=== PATIENT | male | born 1930 | race Caucasian/White ===

== ENCOUNTER 2017-01-29 14:49 | Inpatient (IN) | payer OTHER, BC ==
[2017-01-29 15:14] VITALS: BMI 23.0
--- NOTE | 2017-01-29 15:26 | PDOC ---
History of Present Illness <Sudhir Dubois - Last Filed: 01/29/17 17:26> - General History Source: Patient Exam Limitations: Clinical Condition, Language Barrier - History of Present Illness Initial Comments: 01/29/17 15:50 86 yo M with significant PMHx of afib and muscular dystrophy presents with 4 mo. history of progressive SOB. His is main historian. She states that for the past 4 mo he has gotten progressively worse shortness of breath to the point now where he has labored breathing even at rest. She mentions that he has also had productive cough with yellow sputum. Denies CP, WEBB, abd. pain , palpitations, N/V. Timing/Duration: reports: changing over time, getting worse Severity: reports: moderate Possible Cause: Yes: no prior episodes Associated Symptoms: reports: cough <Michael Clarke - Last Filed: 01/29/17 18:17> - General Chief Complaint: Shortness of Breath Stated Complaint: SOB Time Seen by Provider: 01/29/17 15:24 Past History <Suhdir Dubois - Last Filed: 01/29/17 17:26> - Travel Traveled outside of the country in the last 30 days: Yes Close contact w/someone who was outside of country & ill: Yes - Past Medical History Cardiac Disorders: Yes (afib) Other medical history: MS - Psycho/Social/Smoking Cessation Hx Anxiety: No Suicidal Ideation: No Smoking History: Former smoker Have you smoked in the past 12 months: Yes Information on smoking cessation initiated: No Hx Alcohol Use: No Drug/Substance Use Hx: No Substance Use Type: None <Michael Clarke - Last Filed: 01/29/17 18:17> - Past Medical History Allergies/Adverse Reactions: Allergies Allergy/AdvReac Type Severity Reaction Status Date / Time No Known Allergies Allergy Verified 01/29/17 14:56 Home Medications: Ambulatory Orders Aspirin [ASA -] 81 mg PO DAILY 01/29/17 Atenolol [Tenormin -] 12.5 mg PO ASDIR 01/29/17 Digoxin [Lanoxin -] 0.125 mg PO DAILY 01/29/17 Review of Systems - Review of Systems Able to Perform ROS?: Yes Is the patient limited Chilean proficient: Yes Constitutional: Yes: Weakness, Unintentional Wgt. Loss Respiratory: Yes: Cough, Orthopnea, SOB at Rest, Productive cough Cardiac (ROS): Yes: Edema, Irregular Heart Rate All Other Systems: Reviewed and Negative <Michael Clarke - Last Filed: 01/29/17 18:17> *Physical Exam - Vital Signs Last Vital Signs Temp Pulse Resp BP Pulse Ox 97.9 F 84 22 132/95 96 01/29/17 15:06 01/29/17 15:06 01/29/17 15:06 01/29/17 15:06 01/29/17 17:00 <Sudhir Dubois - Last Filed: 01/29/17 17:26> - Vital Signs Last Vital Signs Temp Pulse Resp BP Pulse Ox 97.9 F 84 22 132/95 95 01/29/17 15:06 01/29/17 15:06 01/29/17 15:06 01/29/17 15:06 01/29/17 15:06 - Physical Exam General Appearance: Yes: Mild Distress HEENT: positive: EOMI, BRITTANY Neck: positive: Supple Respiratory/Chest: positive: Decreased Breath Sounds, Crackles, Rhonchi (left side> right) Cardiovascular: positive: S1, S2, Edema, Irregularly Irregular. negative: JVD, Murmur Vascular Pulses: Dorsalis-Pedis (R): 1+, Doralis-Pedis (L): 1+ Gastrointestinal/Abdominal: positive: Normal Bowel Sounds, Flat, Soft Musculoskeletal: positive: Normal Inspection. negative: CVA Tenderness Extremity: positive: Pedal Edema, Swelling. negative: Calf Tenderness Integumentary: positive: Normal Color, Dry, Warm. negative: Cyanotic, Erythema , Jaundice Neurologic: positive: Fully Oriented, Alert <Michael Clarke - Last Filed: 01/29/17 18:17> ED Treatment Course - LABORATORY CBC & Chemistry Diagram: 01/29/17 16:10 01/29/17 16:10 - ADDITIONAL ORDERS Additional order review: Laboratory Results 01/29/17 16:10 Sodium 139 Potassium 4.9 Chloride 100 Carbon Dioxide 27 Anion Gap 12 BUN 12 Creatinine < 0.2 L Creat Clearance w eGFR > 60 Random Glucose 80 Calcium 8.4 L Total Bilirubin 0.5 AST 20 ALT 16 Alkaline Phosphatase 46 B-Natriuretic Peptide 1333.06 H Total Protein 7.4 Albumin 3.1 L 01/29/17 16:10 RBC 4.75 MCV 91.1 MCHC 32.4 RDW 17.4 H MPV 7.6 Neutrophils % 78.3 Lymphocytes % 12.4 Monocytes % 8.5 Eosinophils % 0.5 Basophils % 0.3 - Medications Given in the ED: ED Medications Discontinued Medications Generic Name Dose Route Start Last Admin Trade Name Daren PRN Reason Stop Dose Admin Furosemide 40 mg 01/29/17 16:13 01/29/17 16:35 Lasix Injection - IVPUSH 01/29/17 16:14 40 mg ONCE ONE Administration <Sudhir Dubois - Last Filed: 01/29/17 17:26> - LABORATORY CBC & Chemistry Diagram: 01/29/17 16:10 01/29/17 16:10 <Michael Clarke - Last Filed: 01/29/17 18:17> Medical Decision Making - Medical Decision Making 01/29/17 16:46 A:86 yo M with significant PMHx of afib and muscular dystrophy presents with 4 mo. history of progressive SOB. Suspicious for CHF exacerbation. Will r/o PNA. Found to be hypoxic SpO2 88% on RA and 93% on 4L P: * CBC,CMP,UA, BNP , and Troponin I * CXR, EKG, and BiPap 01/29/17 16:49 * <Michael Clarke - Last Filed: 01/29/17 18:17> *DC/Admit/Observation/Transfer - Discharge Dispostion Admit: Yes <Sudhir Dubois - Last Filed: 01/29/17 17:26> <Michael Clarke - Last Filed: 01/29/17 18:17> Diagnosis at time of Disposition: Shortness of breath
[2017-01-29] MEDS ORDERED: FUROSEMIDE 40 MG/4 ML INJECTABLE VIAL IVPUSH ONE (16:13)
--- NOTE | 2017-01-29 16:14 | PDOC ---
Attending Attestation - Resident Resident Name: Michael Clarke - ED Attending Attestation I have performed the following: I have examined & evaluated the patient, The case was reviewed & discussed with the resident, I agree w/resident's findings & plan, Exceptions are as noted - HPI HPI: 01/29/17 16:12 86-year-old male with history of muscular dystrophy, atrial fibrillation and CHF presents with several weeks of worsening shortness of breath. - Physicial Exam PE: 01/29/17 16:12 O2 sat 93% on 4 L crackles and edema on exam - Medical Decision Making 01/29/17 16:12 Patient seen and evaluated with the resident. I agree with the overall evaluation, assessment, and management with the following summary of visit: 86-year-old male with volume overload, question primary cardiac. Labs, urinalysis EKG, chest x-ray bipap for pressure support Diuresis Admission 01/29/17 17:23 Improved on bipap, feels well. CBC wnl, no leukocytosis. Chem wnl, BNP 1300, trop pending, Cr normal. CXR with atelectasis v. infiltrate, but presentation not consistent with pna. Accepted for inpatient tele by Dr. Gordillo, admitting for Dr. Bennett. Requests consult with Dr. Casillas, which was ordered.
[2017-01-29] MEDS ORDERED: FUROSEMIDE 40 MG/4 ML INJECTABLE VIAL ONE (16:35)
[2017-01-29 16:58] LABS: BASOPHIL 0.3 % (0-2.0); EOSINOPHIL 0.5 % (0-4.5); MCH 29.5 pg (25.7-33.7); MCHC 32.4 g/dl (32.0-35.9); MEAN CELL VOLUME 91.1 fl (80-96); MEAN PLT VOLUME 7.6 fl (7.5-11.1); NEUTROPHILS 78.3 % (42.8-82.8); PLATELET COUNT 305 K/MM3 (134-434); RDW 17.4 % (11.9-15.9); WHITE BLOOD COUNT 8.4 K/mm3 (4.0-10.0)
[2017-01-29 17:04] LABS: ALBUMIN 3.1 g/dl (3.4-5.0); ANION GAP 12 (8-16); BILIRUBIN,TOTAL 0.5 mg/dL (0.2-1.0); CALCIUM 8.4 mg/dL (8.5-10.1); CO2 27 mmol/L (21-32); COCKROFT - GAULT 212; CREATININE < 0.2 mg/dL (0.7-1.3); GLUCOSE,RANDOM 80 mg/dL (74-106); SGPT/ALT 16 U/L (12-78); TOT PROT 7.4 g/dl (6.4-8.2)
[2017-01-29 17:06] LABS: ALK PHOS 46 U/L (45-117)
[2017-01-29 17:09] LABS: SGOT/AST 20 U/L (15-37)
[2017-01-29 17:29] LABS: TROPONIN I < 0.02 ng/ml (0.00-0.05)
[2017-01-29] MEDS ORDERED: LEVOFLOXACIN 500 MG IVPB 100 ML IVPB ONE (20:40)
--- NOTE | 2017-01-29 20:50 | HP ---
Admitting History and Physical - Primary Care Physician PCP: Gio Gordillo - Admission Chief Complaint: SOB History of Present Illness: Pt with progressive body weakness over last 4 months, started to cough for 1-2 months, over the last couple of days got worse. Pt had a Chest CT scan at the end of December 2016, c/w bilat. bronchietasis, left more than right lung infiltrate, moderate pericardial effusion. History Source: Family Member () - Past Medical History Cardiovascular: Yes: AFIB Musculoskeletal: Yes: Other (Muscular Dystrophy) - Smoking History Smoking history: Former smoker Have you smoked in the past 12 months: No If you are a former smoker, when did you quit?: - Alcohol/Substance Use Hx Alcohol Use: No - Social History Usual Living Arrangement: Yes: With Spouse Home Medications - Allergies Allergies/Adverse Reactions: Allergies Allergy/AdvReac Type Severity Reaction Status Date / Time No Known Allergies Allergy Verified 01/29/17 14:56 - Home Medications Home Medications: Ambulatory Orders Aspirin [ASA -] 81 mg PO DAILY 01/29/17 Atenolol [Tenormin -] 12.5 mg PO ASDIR 01/29/17 Digoxin [Lanoxin -] 0.125 mg PO DAILY 01/29/17 Review of Systems - Review of Systems Constitutional: denies: Chills, Fever, Night Sweats, Unintentional Wgt. Loss Eyes: denies: Double Vision, Recent Change in Vision HENT: reports: Difficult Swallowing. denies: Ear Discharge, Ear Pain, Epistaxis , Nasal Congestion, Throat Pain Neck: denies: Decreased ROM, Pain on Movement Cardiovascular: denies: Chest Pain, Edema, Palpitations Respiratory: reports: Cough, SOB. denies: Hemoptysis, Wheezing Gastrointestinal: denies: Abdominal Pain, Constipation, Diarrhea, Nausea, Vomiting Genitourinary: denies: Burning, Discharge, Dysuria, Flank Pain Musculoskeletal: denies: Back Pain, Joint Swelling Integumentary: denies: Blister, Change in Color, Rash Neurological: denies: Change in LOC, Change in Speech Endocrine: reports: Excessive Sweating. denies: Intolerance to Cold Hematology/Lymphatic: denies: Easily Bruised, Excessive Bleeding Psychiatric: denies: Anxiety, Depression Physical Examination Vital Signs: Vital Signs Temperature 97.9 F 01/29/17 15:06 Pulse Rate 73 01/29/17 18:31 Respiratory Rate 19 01/29/17 18:31 Blood Pressure 136/98 01/29/17 18:31 O2 Sat by Pulse Oximetry (%) 98 01/29/17 18:31 Constitutional: No: No Distress, Calm Eyes: Yes: Conjunctiva Clear, EOM Intact, PERRL HENT: Yes: Normocephalic. No: Epistaxis, Rhinnorhea Neck: Yes: Trachea Midline. No: Lymphadenopathy Cardiovascular: Yes: Regular Rate and Rhythm, S1, S2 Respiratory: Yes: Rhonchi. No: CTA Bilaterally, Wheezes Gastrointestinal: Yes: Normal Bowel Sounds, Soft. No: Palpable Mass, Tenderness ...Rectal Exam: Yes: Deferred Musculoskeletal: No: Back Pain, Joint Stiffness, Joint Swelling Edema: Yes Edema: LLE: Trace, RLE: Trace Integumentary: No: Bruising, Rash Neurological: Yes: Alert, Oriented Labs: reviewed Imaging - Results Chest X-ray: Report Reviewed, Image Reviewed Problem List - Problems (1) Shortness of breath Code(s): R06.02 - SHORTNESS OF BREATH (2) CHF exacerbation Code(s): I50.9 - HEART FAILURE, UNSPECIFIED (3) Pneumonia Code(s): J18.9 - PNEUMONIA, UNSPECIFIED ORGANISM (4) Muscular dystrophy Code(s): G71.0 - MUSCULAR DYSTROPHY Assessment/Plan SOB improved after IV Lasix and on BIPAP. To SANTI by Serial CE Cardio conuslt Pulmonary cosult Start IV Levaquin ECHO in AM Admit to monitor bed DVT prophylaxis AM labs
[2017-01-29 21:34] LABS: TROPONIN I < 0.02 ng/ml (0.00-0.05)
[2017-01-30] MEDS: METOPROLOL TARTRATE 25 MG TABLET (FP) PO SCH ×3 (06:39→21:36)
[2017-01-30 07:45] LABS: MCH 29.7 pg (25.7-33.7); MCHC 32.8 g/dl (32.0-35.9); MEAN CELL VOLUME 90.7 fl (80-96); MEAN PLT VOLUME 7.4 fl (7.5-11.1); PLATELET COUNT 281 K/MM3 (134-434); WHITE BLOOD COUNT 7.1 K/mm3 (4.0-10.0)
[2017-01-30 08:37] LABS: ALBUMIN 2.8 g/dl (3.4-5.0); ALK PHOS 47 U/L (45-117); ANION GAP 10 (8-16); BILIRUBIN,TOTAL 0.7 mg/dL (0.2-1.0); CALCIUM 8.2 mg/dL (8.5-10.1); CO2 30 mmol/L (21-32); COCKROFT - GAULT 212; CREATININE < 0.2 mg/dL (0.7-1.3); GLUCOSE,RANDOM 74 mg/dL (74-106); SGOT/AST 14 U/L (15-37); SGPT/ALT 14 U/L (12-78); THYROID STIMULATING HORMONE 2.75 uIU/ml (0.358-3.74); TOT PROT 6.7 g/dl (6.4-8.2)
[2017-01-30] MEDS ORDERED: PT OWN MED DRAWER 7, Y5N ONE (09:13)
[2017-01-30 09:26] LABS: CHOLESTEROL 109 mg/dL (50-200)
[2017-01-30 09:29] LABS: FREE T4 1.22 ng/dl (0.76-1.16); LDL CHOLESTEROL (ONLY SJRH) 68 mg/dL (5-100)
--- NOTE | 2017-01-30 09:33 | PN ---
[id number] - Current Medication List Current Medications: Active Medications Aspirin (Asa -) 81 mg PO DAILY [facility] Digoxin (Lanoxin -) 0.125 mg PO DAILY [facility] Metoprolol Tartrate (Lopressor -) 12.5 mg PO BID [facility] Last Admin: 01/30/17 06:39 Dose: 12.5 mg - Objective Vital Signs: Vital Signs Temperature 96.8 F L 01/30/17 06:40 Pulse Rate 94 H 01/30/17 06:40 Respiratory Rate 20 01/30/17 06:40 Blood Pressure 136/76 01/30/17 06:40 O2 Sat by Pulse Oximetry (%) 97 01/29/17 21:00 Constitutional: Yes: No Distress, Calm Cardiovascular: Yes: Regular Rate and Rhythm, S1, S2 Respiratory: Yes: Regular, Rales, Rhonchi (on Right side, at the base) Gastrointestinal: Yes: Normal Bowel Sounds, Soft. No: Palpable Mass, Tenderness Edema: No Labs: CBC, BMP 01/30/17 05:35 01/30/17 05:35 Problem List - Problems (1) Shortness of breath Code(s): R06.02 - SHORTNESS OF BREATH (2) CHF exacerbation Code(s): I50.9 - HEART FAILURE, UNSPECIFIED (3) Pneumonia Code(s): J18.9 - PNEUMONIA, UNSPECIFIED ORGANISM (4) Muscular dystrophy Code(s): G71.0 - MUSCULAR DYSTROPHY Assessment/Plan SOB improved after IV Lasix and on BIPAP. Cardio consult. Pulmonary consult. Started IV Levaquin Admitted to monitor bed DVT prophylaxis. Possible dysphagia- consider swallowing eval. AM labs
[2017-01-30] MEDS: ASPIRIN 81 MG CHEWABLE TABLETS PO SCH (10:15)
[2017-01-30] MEDS: DIGOXIN 0.125 MG TABLET (FP) PO SCH (10:15)
--- NOTE | 2017-01-30 10:19 | CON.CARD ---
Cardiology Consult (text) - Consultation Consultation Note: cc: sob, cough, yellow sputum hpi: 86 m hx afib, muscular dystrophy, here with sob, cough, yellow sputum. Pt reports these sxs have been intermittently present for several months. No cp , palps, loc, pnd, orthopnea. Mild le edema. No hx chf or cad. Does not follow with cardiology. In ER put on bipap initially and started on iv abx and iv lasix. Today pt feeling better. pmh: per hpi psh: nc social: ex tob fam: no premature cad ros: per hpi; no fever, nvd, tesfaye, vision changes, abd pain, gib, hematuria, dysuria meds: Home Medications Medication Instructions Recorded Aspirin [ASA -] 81 mg PO DAILY 01/29/17 Atenolol [Tenormin -] 12.5 mg PO ASDIR 01/29/17 Digoxin [Lanoxin -] 0.125 mg PO DAILY 01/29/17 pe: Vital Signs Period Temp Pulse Resp BP Sys/Chilel Pulse Ox Last 24 Hr 96.8 F-98 F 73-94 19-22 112-138/69-98 92-98 nad no jvd irreg s1s2 no mrg cta bl nl eff aaox3 no le e/c/c abd nt nd pos bs no jaundice diaphoresis pos dp pt no carotid bruits Laboratory Last Values WBC 7.1 K/mm3 (4.0-10.0) 01/30/17 05:35 RBC 4.62 M/mm3 (4.00-5.60) 01/30/17 05:35 Hgb 13.7 GM/dL (11.7-16.9) 01/30/17 05:35 Hct 41.9 % (35.4-49) 01/30/17 05:35 MCV 90.7 fl (80-96) 01/30/17 05:35 MCHC 32.8 g/dl (32.0-35.9) 01/30/17 05:35 RDW 17.0 % (11.9-15.9) H 01/30/17 05:35 Plt Count 281 K/MM3 (134-434) 01/30/17 05:35 MPV 7.4 fl (7.5-11.1) L 01/30/17 05:35 Neutrophils % 78.3 % (42.8-82.8) 01/29/17 16:10 Lymphocytes % 12.4 % (8-40) 01/29/17 16:10 Monocytes % 8.5 % (3.8-10.2) 01/29/17 16:10 Eosinophils % 0.5 % (0-4.5) 01/29/17 16:10 Basophils % 0.3 % (0-2.0) 01/29/17 16:10 Sodium 139 mmol/L (136-145) 01/30/17 05:35 Potassium 3.6 mmol/L (3.5-5.1) D 01/30/17 05:35 Chloride 99 mmol/L (98-107) 01/30/17 05:35 Carbon Dioxide 30 mmol/L (21-32) 01/30/17 05:35 Anion Gap 10 (8-16) 01/30/17 05:35 BUN 11 mg/dL (7-18) 01/30/17 05:35 Creatinine < 0.2 mg/dL (0.7-1.3) L 01/30/17 05:35 Creat Clearance w eGFR > 60 (>60) 01/30/17 05:35 Random Glucose 74 mg/dL (74-106) 01/30/17 05:35 Calcium 8.2 mg/dL (8.5-10.1) L 01/30/17 05:35 Total Bilirubin 0.7 mg/dL (0.2-1.0) D 01/30/17 05:35 AST 14 U/L (15-37) L D 01/30/17 05:35 ALT 14 U/L (12-78) 01/30/17 05:35 Alkaline Phosphatase 47 U/L (45-117) 01/30/17 05:35 Creatine Kinase 58 IU/L (39-308) 01/29/17 20:45 Troponin I < 0.02 ng/ml (0.00-0.05) 01/29/17 20:45 B-Natriuretic Peptide 1333.06 pg/ml (5-450) H 01/29/17 16:10 Total Protein 6.7 g/dl (6.4-8.2) 01/30/17 05:35 Albumin 2.8 g/dl (3.4-5.0) L 01/30/17 05:35 Triglycerides Cancelled 01/30/17 08:51 Cholesterol Cancelled 01/30/17 08:51 Total LDL Cholesterol Cancelled 01/30/17 08:51 HDL Cholesterol Cancelled 01/30/17 08:51 TSH 2.75 uIU/ml (0.358-3.74) 01/30/17 05:35 Free T4 Cancelled 01/30/17 08:51 tele: afib, rate controlled ecg 01/29/17: afib, vr 80, nl qtc, non spec tw changes, no st changes cxr: rll infiltrate a/p: 86 m hx afib, muscular dystrophy, here with sob, cough, yellow sputum. sob, pna, acute diastolic chf exacerbation: -possible aspiration pna, cont abx per pmd -possible dchf as well as bnp a little high and le edema resolved after iv lasix -no signs acs, ce's neg x2 -will start po lasix 20 qd for maintenance -check echo afib: -rate controlled, cont bb and dig (check level) -not on ac at home, cont asa, defer to his outpt MD -cont tele pericardial eff: -per pmd pt had ct chest last month that reported moderate pericardial eff -no signs of tamponade here -will check echo
--- NOTE | 2017-01-30 12:37 | CONSULT ---
Admitting History and Physical - Primary Care Physician PCP: Gio Gordillo - Admission History of Present Illness: Per EMR: "Chief Complaint: SOB History of Present Illness: Pt with progressive body weakness over last 4 months, started to cough for 1-2 months, over the last couple of days got worse. Pt had a Chest CT scan at the end of December 2016, c/w bilat. bronchietasis, left more than right lung infiltrate, moderate pericardial effusion." Family reports increased speech and swallowing deficits over last 6 months with increased phlegm 0production and weight loss. He does best with mashed/pureed foods at home. History Source: Patient, Family Member Limitations to Obtaining History: Clinical Condition - Past Medical History Cardiovascular: Yes: AFIB Musculoskeletal: Yes: Other (Muscular Dystrophy) - Smoking History Smoking history: Former smoker Have you smoked in the past 12 months: No If you are a former smoker, when did you quit?: - Alcohol/Substance Use Hx Alcohol Use: No History - Admission Reason For Visit: SHORTNESS OF BREATH - Diagnostics X-ray: Report Reviewed - General Mental Status: Alert and Oriented, Awake and Alert, Able to Follow Commands Attention: Intact Ability to Follow Directions: Good Head/Neck Control: Fair - Hearing Hearing: Functional Speech Evaluation - Communication Primary Language: SWAZI Secondary Language: DJIBOUTIAN (fluent) Communication: Yes: Dysarthria, Language Barrier Oral Expression Ability: Yes: Moderate Impairment - Speech Production Able to Make Needs Known: Yes: Moderately Impaired Intelligibility: Yes: Moderately Impaired - Speech Characteristics Voice Loudness: Mildly Soft/Quiet Voice Pitch: Yes: Normal Voice Phonatory-based Quality: Yes: Dysphonia, Vocal Wetness (intermittent) Speech Pattern: Impaired Speech Clarity: < 75% Nasal Resonance: Hypernasal (intermittent) Articulation: Yes: Imprecise Voice, Other Observations: Yes: Progressively Weak Voice, Disordered Intonation , Inadequate Breath Support - Language/Auditory Comprehension Follows: Yes: 2 Stage Simple Commands - Language/Verbal Expression Able to Respond to Simple Queries: Yes: Mildly Impaired Able to Communicate Wants and Needs: Yes: Mildly Impaired Functional Communication Status: Yes: Mildly Impaired - Memory/Perception intermediate manager Memory: Yes: WNL Short Term Memory: Yes: WNL - Swallow Evaluation/Bedside Assessment Current Nutritional Intake: Regular, Thin Liquids Dentition: Yes: Adequate Facial Symmetry at Rest: Symmetrical Facial Symmetry on Retraction: Symmetrical (unable bilaterally) Jaw Position: Open at Rest Against Resistance Opening: Weak Against Resistance Closing: Weak Pucker Lips: Weak Smile: Weak Lingual Movement: Symmetric Lingual Speed of Movement: Reduced Lingual Movement Strgth Against Opposition: Reduced Laryngeal Elevation: Impaired Laryngeal Movement: Able to Palpate, Reduced Excursion, Labored,delay initiation , Reduced Velocity Rate of Intake: Slow/Holding Bolus Size: Small Chewing: Impaired (extended. not efficient) Oral Prep Time: Increased A-P Transit: Impaired Pocketing: Present Bilaterally Timing of Swallow: Delayed Coughing/Throat Clear: Yes Change in Voice: Yes Recommendations - Speech Evaluation, Impression/Plan Impression: Oral/pharyngeal dysphagia - Dysphagia Impressions/Plan Swallowing Skills: Impaired Dysphagia Impressions: Ongoing Evaluation, Suspect Aspiration *Silent aspiration: cannot be R/O at bedside Recommendations: Modified Barium Swallow - Recommendations Medication Administration: Crushed with applesauce
--- NOTE | 2017-01-30 12:43 | CON.PULM ---
Consult Consult Specialty:: PULMONARY Referred by:: Dr. Gordillo Reason for Consultation:: shortness of breath - History of Present Illness Chief Complaint: shortness of breath History of Present Illness: 86yo male with h/o muscular dystrophy, atrial fibrillation who was admitted with worsening shortness of breath since October. He denies any chest pain or palpitations. +cough productive of whatever he last ate. No fevers, chills or sweats. He has been wheelchair/bedbound, does not ambulate. He reports leg swelling but only sleeps on 1 pillow. Noted to be in respiratory distress in the ER, placed on BiPAP, given lasix and antibiotics with improvement in symptoms. 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 - History Source History Provided By: Patient, Family Member Limitations to Obtaining History: Clinical Condition - Past Medical History Cardio/Vascular: Yes: AFIB Musculoskeletal: Yes: Other (Muscular Dystrophy) - Alcohol/Substance Use Hx Alcohol Use: No - Smoking History Smoking history: Former smoker Have you smoked in the past 12 months: No If you are a former smoker, when did you quit?: Home Medications - Allergies Allergies/Adverse Reactions: Allergies Allergy/AdvReac Type Severity Reaction Status Date / Time No Known Allergies Allergy Verified 01/29/17 14:56 - Home Medications Home Medications: Ambulatory Orders Aspirin [ASA -] 81 mg PO DAILY 01/29/17 Atenolol [Tenormin -] 12.5 mg PO ASDIR 01/29/17 Digoxin [Lanoxin -] 0.125 mg PO DAILY 01/29/17 Family Disease History - Family Disease History Other Family History: non-contributory Review of Systems - Review of Systems Constitutional: reports: Weakness. denies: Chills, Fever Eyes: denies: Recent Change in Vision HENT: denies: Nasal Congestion, Throat Pain Neck: denies: Stiffness, Tenderness Cardiovascular: reports: Edema, Shortness of Breath. denies: Chest Pain Respiratory: reports: Cough, SOB, Wheezing. denies: Hemoptysis Gastrointestinal: denies: Abdominal Pain, Nausea, Vomiting Genitourinary: denies: Dysuria, Hematuria Neurological: denies: Dizziness, Headache Physical Exam Vital Sings: Vital Signs Temperature 98.2 F 01/30/17 09:00 Pulse Rate 91 H 01/30/17 10:15 Respiratory Rate 24 01/30/17 09:00 Blood Pressure 130/79 01/30/17 09:00 O2 Sat by Pulse Oximetry (%) 93 L 01/30/17 10:10 Constitutional: Yes: Calm Eyes: Yes: Conjunctiva Clear, EOM Intact HENT: Yes: Atraumatic, Normocephalic Neck: Yes: Supple, Trachea Midline Cardiovascular: Yes: Pulse Irregular Respiratory: Yes: Regular, Diminished (decreased breath sounds at the bases) ...Clubbing: No Gastrointestinal: Yes: Normal Bowel Sounds, Soft. No: Tenderness Edema: No Neurological: Yes: Alert, Oriented Labs: CBC, BMP 01/30/17 05:35 01/30/17 05:35 Imaging - Results Chest X-ray: Report Reviewed, Image Reviewed (bibasilar infiltrates vs atelectasis) Problem List - Problems (1) CHF exacerbation Code(s): I50.9 - HEART FAILURE, UNSPECIFIED (2) Muscular dystrophy Code(s): G71.0 - MUSCULAR DYSTROPHY (3) Atrial fibrillation Code(s): I48.91 - UNSPECIFIED ATRIAL FIBRILLATION (4) Atelectasis Code(s): J98.11 - ATELECTASIS Assessment/Plan Acute on Chronic LV Diastolic Heart Failure Atrial Fibrillation Pulmonary HTN Moderate Mitral Regurgitation Atelectasis r/o Pneumonia r/o Aspiration Muscular Dystrophy - continue lasix - monitor urine output, creatinine - daily weights, I/Os - on empiric antibiotics - suspect CXR findings more consistent with combination of CHF and atelectasis - can d/c antibiotics if remains afebrile with normal WBC - incentive spirometry - repeat CXR in AM - check vital capacity, NIF and peak flow for baseline function - O2, BiPAP as needed - rate controlled - anticoagulation per cardiology Thank you for this consult [place] MD
--- NOTE | 2017-01-30 13:28 | EKG ---
Test Reason : Blood Pressure : / mmHG Vent. Rate : 080 BPM Atrial Rate : 113 BPM P-R Int : 000 ms QRS Dur : 072 ms QT Int : 332 ms P-R-T Axes : 000 -28 018 degrees QTc Int : 382 ms ATRIAL FIBRILLATION LOW VOLTAGE QRS CANNOT RULE OUT ANTERIOR INFARCT , AGE UNDETERMINED ABNORMAL ECG WHEN COMPARED WITH ECG OF 07-JUN-2011 05:48, QRS VOLTAGE HAS DECREASED QT HAS SHORTENED Confirmed by FRAN MAYS, CLINT ([id number]) on 01/30/2017 1:28:28 PM Referred By: Confirmed By:CLINT PETERS MD
[2017-01-31] MEDS: DIGOXIN 0.125 MG TABLET (FP) PO SCH (09:17)
[2017-01-31] MEDS: ASPIRIN 81 MG CHEWABLE TABLETS PO SCH (09:17)
[2017-01-31] MEDS: METOPROLOL TARTRATE 25 MG TABLET (FP) PO SCH ×2 (09:18→22:07)
[2017-01-31] MEDS: FUROSEMIDE 20 MG TABLET (FP) PO SCH (09:18)
--- NOTE | 2017-01-31 10:39 | PN ---
Progress Note, Physician History of Present Illness: PULMONARY ALERT,STLL C/O SOB - Current Medication List Current Medications: Active Medications Aspirin (Asa -) 81 mg PO DAILY [facility] Last Admin: 01/31/17 09:17 Dose: 81 mg Digoxin (Lanoxin -) 0.125 mg PO DAILY [facility] Last Admin: 01/31/17 09:17 Dose: 0.125 mg Furosemide (Lasix -) 20 mg PO DAILY [facility] Last Admin: 01/31/17 09:18 Dose: 20 mg Metoprolol Tartrate (Lopressor -) 12.5 mg PO BID [facility] Last Admin: 01/31/17 09:18 Dose: 12.5 mg - Objective Vital Signs: Vital Signs Temperature 96.8 F L 01/31/17 05:34 Pulse Rate 90 01/31/17 09:17 Respiratory Rate 21 01/31/17 05:34 Blood Pressure 140/87 01/31/17 05:34 O2 Sat by Pulse Oximetry (%) 96 01/30/17 22:24 Constitutional: Yes: Calm, Thin Eyes: Yes: WNL HENT: Yes: WNL Neck: Yes: WNL Cardiovascular: Yes: Pulse Irregular, S1, S2 Respiratory: Yes: Rales (BIBASILAR CRACKLES) Gastrointestinal: Yes: Normal Bowel Sounds, Soft Extremities: Yes: WNL Edema: No Labs: CBC, BMP - ....Imaging Chest X-ray: Report Reviewed, Image Reviewed Assessment/Plan Problem List - Problems (1) CHF exacerbation Code(s): I50.9 - HEART FAILURE, UNSPECIFIED (2) Muscular dystrophy Code(s): G71.0 - MUSCULAR DYSTROPHY (3) Atrial fibrillation Code(s): I48.91 - UNSPECIFIED ATRIAL FIBRILLATION (4) Atelectasis Code(s): J98.11 - ATELECTASIS Assessment/Plan 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
--- NOTE | 2017-01-31 11:31 | PN ---
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 GT being considered. Pt does best with single sips of thin liquid. Consider Ensure clear for now. Seated fully upright,one sip at a time, allow pt to swallow several times to clear residue through UES, feed VERY slowly. Monitor tolerance.
--- NOTE | 2017-01-31 11:44 | PN ---
Progress Note (short form) - Note Progress Note: s: no cp sob palps dizzy; not eating anything due to swallowing difficulties, also with coughing o: Vital Signs Period Temp Pulse Resp BP Sys/Chilel Pulse Ox Last 24 Hr 96.8 F-98.4 F 72-98 20-22 101-140/62-87 92-98 nad no jvd irreg s1s2 no mrg cta bl nl eff aaox3 no le e/c/c abd nt nd pos bs no jaundice diaphoresis Current Medications Generic Name Dose Route Start Last Admin Trade Name Daren PRN Reason Stop Dose Admin Aspirin 81 mg 01/30/17 10:00 01/31/17 09:17 Asa - PO 81 mg DAILY FROILAN Administration Digoxin 0.125 mg 01/30/17 10:00 01/31/17 09:17 Lanoxin - PO 0.125 mg DAILY FROILAN Administration Furosemide 20 mg 01/31/17 10:00 01/31/17 09:18 Lasix - PO 20 mg DAILY FROILAN Administration Metoprolol Tartrate 12.5 mg 01/30/17 06:00 01/31/17 09:18 Lopressor - PO 12.5 mg BID FROILAN Administration 01/30/17 05:35 01/30/17 05:35 tele: afib, rate controlled ecg 01/29/17: afib, vr 80, nl qtc, non spec tw changes, no st changes cxr: rll infiltrate echo 01/2017: nl lv/rv, sev brad, mod mr, mod-sev tr, rvsp 30-40, small-mod pericardial eff, no tamponade a/p: 86 m hx afib, muscular dystrophy, here with sob, cough, yellow sputum. sob, pna, acute diastolic chf exacerbation: -possible aspiration pna, ct chest pending -will likely need peg-->no cardiac contraindications -possible dchf as well as bnp a little high and le edema resolved after iv lasix -no signs acs, ce's neg x2 -cont po lasix 20 qd for maintenance -echo with nl lvef afib: -rate controlled, cont bb and dig (level ok) -not on ac at home, cont asa, defer to his outpt pericardial eff: -per charts pt had ct chest 12/2016 that reported moderate pericardial eff -echo here shows mild-mod pericardial eff -no signs of tamponade here -monitor for now
--- NOTE | 2017-01-31 14:52 | PN ---
Progress Note, Physician History of Present Illness: Pt w/o SOB, CP, palp., abd pain Pt. with cough and sputum, difficult to bring it up. - Current Medication List Current Medications: Active Medications Aspirin (Asa -) 81 mg PO DAILY [facility] Last Admin: 01/31/17 09:17 Dose: 81 mg Digoxin (Lanoxin -) 0.125 mg PO DAILY [facility] Last Admin: 01/31/17 09:17 Dose: 0.125 mg Furosemide (Lasix -) 20 mg PO DAILY [facility] Last Admin: 01/31/17 09:18 Dose: 20 mg Metoprolol Tartrate (Lopressor -) 12.5 mg PO BID [facility] Last Admin: 01/31/17 09:18 Dose: 12.5 mg - Objective Vital Signs: Vital Signs Temperature 98 F 01/31/17 09:00 Pulse Rate 90 01/31/17 09:17 Respiratory Rate 20 01/31/17 09:00 Blood Pressure 124/64 01/31/17 09:00 O2 Sat by Pulse Oximetry (%) 94 L 01/31/17 09:00 Constitutional: Yes: No Distress, Calm Cardiovascular: Yes: S1, S2 Respiratory: Yes: Regular, Rhonchi (at bases, R > L) Gastrointestinal: Yes: Normal Bowel Sounds, Soft. No: Tenderness Edema: No Neurological: Yes: Oriented Labs: CBC, BMP 01/30/17 05:35 01/30/17 05:35 - ....Imaging Other: Other (MBS was reviewed ( with Danae White)) Problem List - Problems (1) Shortness of breath Code(s): R06.02 - SHORTNESS OF BREATH (2) CHF exacerbation Code(s): I50.9 - HEART FAILURE, UNSPECIFIED (3) Pneumonia Code(s): J18.9 - PNEUMONIA, UNSPECIFIED ORGANISM (4) Muscular dystrophy Code(s): G71.0 - MUSCULAR DYSTROPHY (5) Dysphagia Assessment/Plan: Case was d/w Danae White- pt cannot swallow except liqiuds (seems to be OK). She recommends PEG tube placement for nutrition and therapeutic- medication administration; pt. can continue to drink. Recommendations were reviewed with pt. and pt.'s (PEG tube was recommended a while ago but pt. didn't decided). Now he and noticed decreased in PO intake and want to go ahead with PEGT placement this admission. To call GI for evaluation. Case was d/w Cardio and Pulmonary- OK for OR Code(s): R13.10 - DYSPHAGIA, UNSPECIFIED
--- NOTE | 2017-01-31 18:16 | CON.GI ---
Consult Consult Specialty:: Gastroenterology Referred by:: Dr Gordillo Reason for Consultation:: Dysphagia - History of Present Illness Chief Complaint: Difficulty with speech, chewing and swallowing as result of muscular dystrophy leading to weakness History of Present Illness: 86M has progressive weakness since 10/22. This is concomitant with the inability to chew adequately and to swallow without choking leading to weight loss. He is no longer able to hold things reliably with his arms and hands. MBS reveals only the proximal tract and he is restricted to soft foods. Even with thses he is having difficulty ingesting an adequate enough volume to sustain himself calorically. - History Source History Provided By: Patient Limitations to Obtaining History: Physical Impairment - Past Medical History Cardio/Vascular: Yes: AFIB, Mitral Insufficiency, Pulmonary Hypertension Gastrointestinal: Yes: Other (remote h/o " colitis" followed by Dr Benavides) Hepatobiliary: Yes: Cholelithiasis (s/p lap choly) Musculoskeletal: Yes: Other (Muscular Dystrophy) - Past Surgical History Past Surgical History: Yes: Cataract Removal (bilateral), Cholecystectomy ( laparoscopic) - Alcohol/Substance Use Hx Alcohol Use: No History of Substance Use: reports: None - Smoking History Smoking history: Former smoker Have you smoked in the past 12 months: No If you are a former smoker, when did you quit?: - Social History Usual Living Arrangement: With Spouse ADL: Family Assistance 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year): age 31 History of Recent Travel: No Home Medications - Allergies Allergies/Adverse Reactions: Allergies Allergy/AdvReac Type Severity Reaction Status Date / Time No Known Allergies Allergy Verified 01/29/17 14:56 - Home Medications Home Medications: Ambulatory Orders Aspirin [ASA -] 81 mg PO DAILY 01/29/17 Atenolol [Tenormin -] 12.5 mg PO ASDIR 01/29/17 Digoxin [Lanoxin -] 0.125 mg PO DAILY 01/29/17 Family Disease History - Family Disease History Other Family History: non-contributory Review of Systems - Review of Systems Constitutional: reports: Unintentional Wgt. Loss, Weakness Eyes: reports: No Symptoms HENT: reports: Difficult Swallowing Cardiovascular: reports: No Symptoms Respiratory: reports: No Symptoms Gastrointestinal: reports: No Symptoms Musculoskeletal: reports: Muscle Weakness Physical Exam-GI Vital Signs: Vital Signs Temperature 98.1 F 01/31/17 14:43 Pulse Rate 83 01/31/17 14:43 Respiratory Rate 22 01/31/17 14:43 Blood Pressure 111/59 01/31/17 14:43 O2 Sat by Pulse Oximetry (%) 93 L 01/31/17 17:24 Current Medications Generic Name Dose Route Start Last Admin Trade Name Elroyq PRN Reason Stop Dose Admin Aspirin 81 mg 01/30/17 10:00 01/31/17 09:17 Asa - PO 81 mg DAILY FRO[facility]AN Administration Digoxin 0.125 mg 01/30/17 10:00 01/31/17 09:17 Lanoxin - PO 0.125 mg DAILY [facility] Administration Furosemide 20 mg 01/31/17 10:00 01/31/17 09:18 Lasix - PO 20 mg DAILY [facility] Administration Metoprolol Tartrate 12.5 mg 01/30/17 06:00 01/31/17 09:18 Lopressor - PO 12.5 mg BID FROILAN Administration CBC,CMP WBC 7.1 K/mm3 (4.0-10.0) 01/30/17 05:35 RBC 4.62 M/mm3 (4.00-5.60) 01/30/17 05:35 Hgb 13.7 GM/dL (11.7-16.9) 01/30/17 05:35 Hct 41.9 % (35.4-49) 01/30/17 05:35 MCV 90.7 fl (80-96) 01/30/17 05:35 MCHC 32.8 g/dl (32.0-35.9) 01/30/17 05:35 RDW 17.0 % (11.9-15.9) H 01/30/17 05:35 Plt Count 281 K/MM3 (134-434) 01/30/17 05:35 MPV 7.4 fl (7.5-11.1) L 01/30/17 05:35 Neutrophils % 78.3 % (42.8-82.8) 01/29/17 16:10 Lymphocytes % 12.4 % (8-40) 01/29/17 16:10 Monocytes % 8.5 % (3.8-10.2) 01/29/17 16:10 Eosinophils % 0.5 % (0-4.5) 01/29/17 16:10 Basophils % 0.3 % (0-2.0) 01/29/17 16:10 Sodium 139 mmol/L (136-145) 01/30/17 05:35 Potassium 3.6 mmol/L (3.5-5.1) D 01/30/17 05:35 Chloride 99 mmol/L (98-107) 01/30/17 05:35 Carbon Dioxide 30 mmol/L (21-32) 01/30/17 05:35 Anion Gap 10 (8-16) 01/30/17 05:35 BUN 11 mg/dL (7-18) 01/30/17 05:35 Creatinine < 0.2 mg/dL (0.7-1.3) L 01/30/17 05:35 Creat Clearance w eGFR > 60 (>60) 01/30/17 05:35 Random Glucose 74 mg/dL (74-106) 01/30/17 05:35 Calcium 8.2 mg/dL (8.5-10.1) L 01/30/17 05:35 Total Bilirubin 0.7 mg/dL (0.2-1.0) D 01/30/17 05:35 AST 14 U/L (15-37) L D 01/30/17 05:35 ALT 14 U/L (12-78) 01/30/17 05:35 Alkaline Phosphatase 47 U/L (45-117) 01/30/17 05:35 Creatine Kinase 58 IU/L (39-308) 01/29/17 20:45 Troponin I < 0.02 ng/ml (0.00-0.05) 01/29/17 20:45 B-Natriuretic Peptide 1333.06 pg/ml (5-450) H 01/29/17 16:10 Total Protein 6.7 g/dl (6.4-8.2) 01/30/17 05:35 Albumin 2.8 g/dl (3.4-5.0) L 01/30/17 05:35 Triglycerides Cancelled 01/30/17 08:51 Cholesterol Cancelled 01/30/17 08:51 Total LDL Cholesterol Cancelled 01/30/17 08:51 HDL Cholesterol Cancelled 01/30/17 08:51 TSH 2.75 uIU/ml (0.358-3.74) 01/30/17 05:35 Free T4 Cancelled 01/30/17 08:51 Constitutional: Yes: Anxious, Thin Eyes: Yes: Conjunctiva Clear HENT: Yes: Normocephalic Neck: Yes: Supple Cardiovascular: Yes: Pulse Irregular, Murmur (2/6 ROGELIO) Respiratory: Yes: CTA Bilaterally Gastrointestinal Inspection: Yes: Scars (healed lap choly incisions) ...Auscultate: Yes: Normoactive Bowel Sounds ...Palpate: Yes: Soft, Other (nontender) ...Rectal Exam: Yes: Deferred Labs: CBC, BMP 01/30/17 05:35 01/30/17 05:35 Problem List - Problems (1) Atrial dilatation, left Code(s): I51.7 - CARDIOMEGALY (2) Atrial dilatation, right Code(s): I51.7 - CARDIOMEGALY Assessment/Plan Given the progressing nature of his muscular dystrophy leading to weight loss a PEG would be an appropriate option to allow for adequate calories. I have discussed the PEG procedure in detail with Prakash and his and informed then of the potential for such complications as infection, bowel perforation and hemorrhage among others as well as the risks of anesthesia. They have granted an informed consent. I will schedule it for the next opportunity.
[2017-02-01 08:18] LABS: ANION GAP 8 (8-16); CALCIUM 8.1 mg/dL (8.5-10.1); CO2 33 mmol/L (21-32); COCKROFT - GAULT 212; CREATININE < 0.2 mg/dL (0.7-1.3); GLUCOSE,RANDOM 93 mg/dL (74-106)
--- NOTE | 2017-02-01 09:52 | PN ---
Progress Note (short form) - Note Progress Note: s: no cp sob palps dizzy; not eating much due to swallowing difficulties, also with coughing after eating o: Vital Signs Period Temp Pulse Resp BP Sys/Chilel Pulse Ox Last 24 Hr 97.2 F-99 F 83-99 20-22 95-123/59-74 90-93 nad no jvd irreg s1s2 no mrg cta bl nl eff aaox3 no le e/c/c abd nt nd pos bs no jaundice diaphoresis Current Medications Generic Name Dose Route Start Last Admin Trade Name Daren PRN Reason Stop Dose Admin Digoxin 0.125 mg 01/30/17 10:00 01/31/17 09:17 Lanoxin - PO 0.125 mg DAILY FRO[facility]AN Administration Furosemide 20 mg 01/31/17 10:00 01/31/17 09:18 Lasix - PO 20 mg DAILY [facility]AN Administration Metoprolol Tartrate 12.5 mg 01/30/17 06:00 01/31/17 22:07 Lopressor - PO 12.5 mg BID FROILAN Administration CBC, BMP 01/30/17 05:35 02/01/17 06:00 tele: afib, rate controlled ecg 01/29/17: afib, vr 80, nl qtc, non spec tw changes, no st changes echo 01/2017: nl lv/rv, sev brad, mod mr, mod-sev tr, rvsp 30-40, small-mod pericardial eff, no tamponade a/p: 86 m hx afib, muscular dystrophy, here with sob, cough, yellow sputum. sob, pna, acute diastolic chf exacerbation: -possible aspiration pna, ct chest showing b/l consolidations -failed swallow eval, planned for peg this week-->no cardiac contraindications, will hold asa for now -possible dchf as well as bnp a little high and le edema resolved after iv lasix -no signs acs, ce's neg x2 -cont po lasix 20 qd for maintenance -echo with nl lvef afib: -rate controlled, cont bb and dig (level ok) -not on ac at home, cont asa, defer to his outpt pericardial eff: -per charts pt had ct chest 12/2016 that reported moderate pericardial eff -echo here shows mild-mod pericardial eff -no signs of tamponade here -monitor for now
[2017-02-01] MEDS: DIGOXIN 0.125 MG TABLET (FP) PO SCH (10:31)
[2017-02-01] MEDS: FUROSEMIDE 20 MG TABLET (FP) PO SCH (10:31)
[2017-02-01] MEDS: METOPROLOL TARTRATE 25 MG TABLET (FP) PO SCH ×2 (10:32→21:38)
[2017-02-01] MEDS: FUROSEMIDE 40 MG/4 ML INJECTABLE VIAL IVPUSH SCH (11:11)
[2017-02-01] MEDS: METOPROLOL TARTRATE 5 MG/5 ML VIAL IVPUSH PRN ×2 (11:11→20:06)
[2017-02-01] MEDS ORDERED: POTASSIUM CHLORIDE ORAL LIQUID 20 MEQ/15 ML PO ONE (11:31)
--- NOTE | 2017-02-01 11:41 | PN ---
Progress Note, Physician History of Present Illness: Pt w/o CP, palp., abd pain Pt. with tachypnia, tachycardia - Current Medication List Current Medications: Active Medications Digoxin (Lanoxin -) 0.125 mg PO DAILY [facility] Last Admin: 02/01/17 10:31 Dose: 0.125 mg Furosemide (Lasix Injection -) 40 mg IVPUSH DAILY [facility] Last Admin: 02/01/17 11:11 Dose: 40 mg Metoprolol Tartrate (Lopressor -) 12.5 mg PO BID [facility] Last Admin: 02/01/17 10:32 Dose: 12.5 mg Metoprolol Tartrate (Lopressor Injection -) 5 mg IVPUSH Q4H PRN PRN Reason: TACHYCARDIA Last Admin: 02/01/17 11:11 Dose: 5 mg - Objective Vital Signs: Vital Signs Temperature 98.2 F 02/01/17 08:15 Pulse Rate 146 H 02/01/17 11:11 Respiratory Rate 18 02/01/17 08:15 Blood Pressure 110/56 02/01/17 11:11 O2 Sat by Pulse Oximetry (%) 92 L 02/01/17 10:59 Constitutional: Yes: No Distress (on BIPAP), Calm Cardiovascular: Yes: Regular Rate and Rhythm, S1, S2 Respiratory: Yes: Regular, Rhonchi Gastrointestinal: Yes: Normal Bowel Sounds, Soft. No: Tenderness Edema: No Labs: CBC, BMP 01/30/17 05:35 02/01/17 06:00 Problem List - Problems (1) Shortness of breath Code(s): R06.02 - SHORTNESS OF BREATH (2) CHF exacerbation Code(s): I50.9 - HEART FAILURE, UNSPECIFIED (3) Pneumonia Code(s): J18.9 - PNEUMONIA, UNSPECIFIED ORGANISM (4) Muscular dystrophy Code(s): G71.0 - MUSCULAR DYSTROPHY (5) Dysphagia Code(s): R13.10 - DYSPHAGIA, UNSPECIFIED (6) Hypokalemia Assessment/Plan: replete K; to monitor electrolytes in AM Code(s): E87.6 - HYPOKALEMIA (7) Mitral regurgitation Code(s): I34.0 - NONRHEUMATIC MITRAL (VALVE) INSUFFICIENCY (8) Tricuspid regurgitation Code(s): I07.1 - RHEUMATIC TRICUSPID INSUFFICIENCY (9) Pulmonary hypertension Code(s): I27.2 - OTHER SECONDARY PULMONARY HYPERTENSION Assessment/Plan SOB improved after IV Lasix and on BIPAP. Cardio consult appreciated Pulmonary consult appreciated Start IV Levaquin Admitted to monitor bed DVT prophylaxis GI consult appreciated AM labs
--- NOTE | 2017-02-01 14:30 | PN ---
Progress Note (short form) - Note Progress Note: Awake and alert. NAD. No acute events overnight. Still with some SOB/cough. Intake & Output 01/29/17 01/30/17 01/31/17 02/01/17 23:59 23:59 23:59 23:59 Intake Total 565 150 Output Total 300 550 Balance 265 -400 Weight 130 lb Last Vital Signs Temp Pulse Resp BP Pulse Ox 98.2 F 146 H 18 110/56 92 L 02/01/17 08:15 02/01/17 11:11 02/01/17 08:15 02/01/17 11:11 02/01/17 10:59 Active Medications Digoxin (Lanoxin -) 0.125 mg PO DAILY [facility] Last Admin: 02/01/17 10:31 Dose: 0.125 mg Furosemide (Lasix Injection -) 40 mg IVPUSH DAILY [facility] Last Admin: 02/01/17 11:11 Dose: 40 mg Metoprolol Tartrate (Lopressor -) 12.5 mg PO BID [facility] Last Admin: 02/01/17 10:32 Dose: 12.5 mg Metoprolol Tartrate (Lopressor Injection -) 5 mg IVPUSH Q4H PRN PRN Reason: TACHYCARDIA Last Admin: 02/01/17 11:11 Dose: 5 mg Constitutional: Yes: NAD, Thin Eyes: Yes: WNL HENT: Yes: WNL Neck: Yes: WNL Cardiovascular: Yes: Pulse Irregular, S1, S2 Respiratory: Yes: Bibasilar Rales Gastrointestinal: Yes: Normal Bowel Sounds, Soft Extremities: Yes: WNL Edema: No Labs: Laboratory Results - last 24 hr 02/01/17 06:00 Sodium 140 Potassium 3.4 L Chloride 99 Carbon Dioxide 33 H Anion Gap 8 BUN 18 D Creatinine < 0.2 L Random Glucose 93 D Calcium 8.1 L Assessment/Plan Problem List - Problems (1) CHF exacerbation Code(s): I50.9 - HEART FAILURE, UNSPECIFIED (2) Muscular dystrophy Code(s): G71.0 - MUSCULAR DYSTROPHY (3) Atrial fibrillation Code(s): I48.91 - UNSPECIFIED ATRIAL FIBRILLATION (4) Atelectasis Code(s): J98.11 - ATELECTASIS Assessment/Plan Acute on Chronic LV Diastolic Heart Failure improving Atrial Fibrillation Pulmonary HTN Moderate Mitral Regurgitation Atelectasis r/o Pneumonia r/o Aspiration Muscular Dystrophy - lasix - monitor urine output, creatinine - daily weights, I/Os - ABX - incentive spirometry - Attempts at vital capacity, NIF and peak flow has not been successful - O2, NIPPV as needed - AC Dr Dean
[2017-02-01] MEDS: ALBUTEROL SO4 0.083% IH SOL 2.5 MG/3 ML VIAL.NEB. NEB PRN (17:21)
[2017-02-01] MEDS: LEVOFLOXACIN 500 MG IVPB 100 ML IVPB SCH (22:48)
[2017-02-02 08:32] LABS: MCH 29.6 pg (25.7-33.7); MCHC 32.5 g/dl (32.0-35.9); MEAN CELL VOLUME 91.1 fl (80-96); MEAN PLT VOLUME 7.6 fl (7.5-11.1); PLATELET COUNT 304 K/MM3 (134-434); RDW 16.8 % (11.9-15.9); WHITE BLOOD COUNT 6.8 K/mm3 (4.0-10.0)
[2017-02-02 09:00] LABS: CALCIUM 8.4 mg/dL (8.5-10.1); COCKROFT - GAULT 212.93; CREATININE 0.2 mg/dL (0.7-1.3); MAGNESIUM 1.8 mg/dL (1.8-2.4)
[2017-02-02] MEDS: LEVOFLOXACIN 500 MG IVPB 100 ML IVPB SCH (09:06)
[2017-02-02] MEDS: FUROSEMIDE 40 MG/4 ML INJECTABLE VIAL IVPUSH SCH (09:06)
[2017-02-02] MEDS: METOPROLOL TARTRATE 25 MG TABLET (FP) PO SCH ×2 (09:06→21:10)
[2017-02-02] MEDS: DIGOXIN 0.125 MG TABLET (FP) PO SCH (09:06)
--- NOTE | 2017-02-02 10:52 | PN ---
Progress Note (short form) - Note Progress Note: s: no cp sob palps dizzy; not eating much due to swallowing difficulties, also with coughing after eating o: Vital Signs Period Temp Pulse Resp BP Sys/Chilel Pulse Ox Last 24 Hr 97.8 F-99.2 F 86-148 20-22 91-113/54-82 90-96 nad no jvd irreg s1s2 no mrg scattered rhonchi aaox3 no le e/c/c abd nt nd pos bs no jaundice diaphoresis Current Medications Generic Name Dose Route Start Last Admin Trade Name Freq PRN Reason Stop Dose Admin Albuterol Sulfate 1 amp 02/01/17 14:36 02/01/17 17:21 Ventolin 0.083% Nebulizer Soln - NEB 1 amp Q4H PRN Administration SHORT OF BREATH/WHEEZING Digoxin 0.125 mg 01/30/17 10:00 02/02/17 09:06 Lanoxin - PO 0.125 mg DAILY [facility] Administration Furosemide 40 mg 02/01/17 11:00 02/02/17 09:06 Lasix Injection - IVPUSH 40 mg DAILY [facility] Administration Levofloxacin 100 mls @ 100 mls/hr 02/01/17 22:15 02/02/17 09:06 Levaquin 500 Mg Premixed Ivpb - IVPB 100 mls/hr DAILY [facility] Administration Metoprolol Tartrate 12.5 mg 01/30/17 06:00 02/02/17 09:06 Lopressor - PO 12.5 mg BID FROILAN Administration Metoprolol Tartrate 5 mg 02/01/17 11:09 02/01/17 20:06 Lopressor Injection - IVPUSH 5 mg Q4H PRN Administration TACHYCARDIA CBC, BMP 02/02/17 06:00 02/02/17 06:00 tele: afib, rate controlled ecg 01/29/17: afib, vr 80, nl qtc, non spec tw changes, no st changes echo 01/2017: nl lv/rv, sev brad, mod mr, mod-sev tr, rvsp 30-40, small-mod pericardial eff, no tamponade a/p: 86 m hx afib, muscular dystrophy, here with sob, cough, yellow sputum. sob, pna, acute diastolic chf exacerbation: -possible aspiration pna, ct chest showing b/l consolidations, on abx now -failed swallow eval, planned for peg this week-->no cardiac contraindications, will hold asa for now -possible dchf/RHF (TR) as well as bnp a little high and le edema resolved after iv lasix -no signs acs, ce's neg x2 -On 02/01 had episode of sob, possibly related to aspiration but imaging shows effusions as well so will cont with iv lasix 40 qd for now, monitor daily chem7 -echo with nl lvef afib: -rate controlled, cont bb and dig (level ok) -not on ac at home, cont asa, defer to his outpt pericardial eff: -per charts pt had ct chest 12/2016 that reported moderate pericardial eff -echo here shows mild-mod pericardial eff -no signs of tamponade here -monitor for now
--- NOTE | 2017-02-02 12:59 | PN ---
Progress Note, Physician History of Present Illness: Pt w/o CP, palp., abd pain, SOB Pt. with constipation. - Current Medication List Current Medications: Active Medications Albuterol Sulfate (Ventolin 0.083% Nebulizer Soln -) 1 amp NEB Q4H PRN PRN Reason: SHORT OF BREATH/WHEEZING Last Admin: 02/01/17 17:21 Dose: 1 amp Digoxin (Lanoxin -) 0.125 mg PO DAILY [facility] Last Admin: 02/02/17 09:06 Dose: 0.125 mg Furosemide (Lasix Injection -) 40 mg IVPUSH DAILY [facility] Last Admin: 02/02/17 09:06 Dose: 40 mg Levofloxacin (Levaquin 500 Mg Premixed Ivpb -) 100 mls @ 100 mls/hr IVPB DAILY [facility] Last Admin: 02/02/17 09:06 Dose: 100 mls/hr Metoprolol Tartrate (Lopressor -) 12.5 mg PO BID [facility] Last Admin: 02/02/17 09:06 Dose: 12.5 mg Metoprolol Tartrate (Lopressor Injection -) 5 mg IVPUSH Q4H PRN PRN Reason: TACHYCARDIA Last Admin: 02/01/17 20:06 Dose: 5 mg - Objective Vital Signs: Vital Signs Temperature 98 F 02/02/17 08:23 Pulse Rate 96 H 02/02/17 09:06 Respiratory Rate 20 02/02/17 08:23 Blood Pressure 113/67 02/02/17 08:23 O2 Sat by Pulse Oximetry (%) 94 L 02/02/17 10:54 Constitutional: Yes: No Distress, Calm Cardiovascular: Yes: Regular Rate and Rhythm, S1, S2 Respiratory: Yes: Regular, Rales Gastrointestinal: Yes: Normal Bowel Sounds, Soft. No: Palpable Mass, Tenderness Neurological: Yes: Alert, Oriented Labs: CBC, BMP 02/02/17 06:00 02/02/17 06:00 Problem List - Problems (1) Shortness of breath Code(s): R06.02 - SHORTNESS OF BREATH (2) CHF exacerbation Code(s): I50.9 - HEART FAILURE, UNSPECIFIED (3) Pneumonia Code(s): J18.9 - PNEUMONIA, UNSPECIFIED ORGANISM (4) Muscular dystrophy Code(s): G71.0 - MUSCULAR DYSTROPHY (5) Dysphagia Assessment/Plan: For PEG Code(s): R13.10 - DYSPHAGIA, UNSPECIFIED (6) Hypokalemia Assessment/Plan: Corrected; to monitor electrolytes in AM Code(s): E87.6 - HYPOKALEMIA (7) Mitral regurgitation Code(s): I34.0 - NONRHEUMATIC MITRAL (VALVE) INSUFFICIENCY (8) Tricuspid regurgitation Code(s): I07.1 - RHEUMATIC TRICUSPID INSUFFICIENCY (9) Pulmonary hypertension Code(s): I27.2 - OTHER SECONDARY PULMONARY HYPERTENSION Assessment/Plan SOB improved after IV Lasix and on BIPAP. Cardio consult. Pulmonary consult. Started IV Levaquin Admitted to monitor bed DVT prophylaxis. Possible dysphagia- consider swallowing eval. AM labs
--- NOTE | 2017-02-02 14:01 | PN ---
Progress Note (short form) - Note Progress Note: Awake and alert. NAD. No acute events overnight. Still with some SOB/cough. Intake & Output 01/30/17 01/31/17 02/01/17 02/02/17 23:59 23:59 23:59 23:59 Intake Total 565 150 200 100 Output Total 300 550 800 Balance 265 -400 -600 100 Last Vital Signs Temp Pulse Resp BP Pulse Ox 98 F 96 H 20 113/67 94 L 02/02/17 08:23 02/02/17 09:06 02/02/17 08:23 02/02/17 08:23 02/02/17 10:54 Active Medications Albuterol Sulfate (Ventolin 0.083% Nebulizer Soln -) 1 amp NEB Q4H PRN PRN Reason: SHORT OF BREATH/WHEEZING Last Admin: 02/01/17 17:21 Dose: 1 amp Digoxin (Lanoxin -) 0.125 mg PO DAILY [facility] Last Admin: 02/02/17 09:06 Dose: 0.125 mg Furosemide (Lasix Injection -) 40 mg IVPUSH DAILY [facility] Last Admin: 02/02/17 09:06 Dose: 40 mg Levofloxacin (Levaquin 500 Mg Premixed Ivpb -) 100 mls @ 100 mls/hr IVPB DAILY [facility] Last Admin: 02/02/17 09:06 Dose: 100 mls/hr Metoprolol Tartrate (Lopressor -) 12.5 mg PO BID [facility] Last Admin: 02/02/17 09:06 Dose: 12.5 mg Metoprolol Tartrate (Lopressor Injection -) 5 mg IVPUSH Q4H PRN PRN Reason: TACHYCARDIA Last Admin: 02/01/17 20:06 Dose: 5 mg Constitutional: Yes: NAD, Thin Eyes: Yes: WNL HENT: Yes: WNL Neck: Yes: WNL Cardiovascular: Yes: Pulse Irregular, S1, S2 Respiratory: Yes: Bibasilar Rales Gastrointestinal: Yes: Normal Bowel Sounds, Soft Extremities: Yes: WNL Edema: No Labs: Laboratory Results - last 24 hr 02/02/17 02/02/17 06:00 06:00 WBC 6.8 RBC 4.43 Hgb 13.1 Hct 40.4 MCV 91.1 MCHC 32.5 RDW 16.8 H Plt Count 304 MPV 7.6 Sodium 141 Potassium 3.7 Chloride 97 L Carbon Dioxide 34 H Anion Gap 10 BUN 24 H D Creatinine 0.2 L Random Glucose 96 Calcium 8.4 L Magnesium 1.8 Assessment/Plan Problem List - Problems (1) CHF exacerbation Code(s): I50.9 - HEART FAILURE, UNSPECIFIED (2) Muscular dystrophy Code(s): G71.0 - MUSCULAR DYSTROPHY (3) Atrial fibrillation Code(s): I48.91 - UNSPECIFIED ATRIAL FIBRILLATION (4) Atelectasis Code(s): J98.11 - ATELECTASIS Assessment/Plan Acute on Chronic LV Diastolic Heart Failure improving Atrial Fibrillation Pulmonary HTN Moderate Mitral Regurgitation Atelectasis r/o Pneumonia r/o Aspiration Muscular Dystrophy - lasix - monitor urine output, creatinine - daily weights, I/Os - ABX - incentive spirometry - Attempts at vital capacity, NIF and peak flow has not been successful - O2, NIPPV as needed - AC Dr Dean
--- NOTE | 2017-02-02 14:47 | PN ---
GI Progress Note Subjective: GI Note: Prakash has essentially stopped eating due to trouble chewing, masticating and swallowing. - Objective Vital Signs: Vital Signs Temperature 98.2 F 02/02/17 14:13 Pulse Rate 89 02/02/17 14:13 Respiratory Rate 18 02/02/17 14:13 Blood Pressure 115/63 02/02/17 14:13 O2 Sat by Pulse Oximetry (%) 94 L 02/02/17 10:54 Constitutional: Calm Cardiovascular: Yes: Regular Rate and Rhythm Respiratory: Yes: CTA Bilaterally ...Auscultate: Yes: Normoactive Bowel Sounds ...Palpate: Yes: Soft, Other (nontender) Labs: CBC, BMP 02/02/17 06:00 02/02/17 06:00 Assessment/Plan I have scheduled PEG insertion for tomorrow and hope that the schedule will permit for it. Will check INR. Discussed with and Dr. Gordillo. Problem List - Problems (1) Atrial dilatation, left Code(s): I51.7 - CARDIOMEGALY (2) Atrial dilatation, right Code(s): I51.7 - CARDIOMEGALY
[2017-02-02 16:02] LABS: INR 1.41 (0.82-1.09); PROTHROMBIN TIME (PATIENT) 15.6 SEC (9.98-11.88)
[2017-02-03 07:30] LABS: MCH 30.1 pg (25.7-33.7); MCHC 33.3 g/dl (32.0-35.9); MEAN CELL VOLUME 90.6 fl (80-96); MEAN PLT VOLUME 7.4 fl (7.5-11.1); PLATELET COUNT 291 K/MM3 (134-434); RDW 16.8 % (11.9-15.9); WHITE BLOOD COUNT 7.4 K/mm3 (4.0-10.0)
[2017-02-03 07:58] LABS: CALCIUM 8.3 mg/dL (8.5-10.1); COCKROFT - GAULT 212.93; CREATININE 0.2 mg/dL (0.7-1.3)
[2017-02-03] MEDS: LEVOFLOXACIN 500 MG IVPB 100 ML IVPB SCH (09:22)
--- NOTE | 2017-02-03 09:24 | PN ---
Progress Note, Physician - Current Medication List Current Medications: Active Medications Albuterol Sulfate (Ventolin 0.083% Nebulizer Soln -) 1 amp NEB Q4H PRN PRN Reason: SHORT OF BREATH/WHEEZING Last Admin: 02/01/17 17:21 Dose: 1 amp Digoxin (Lanoxin -) 0.125 mg PO DAILY [facility] Last Admin: 02/02/17 09:06 Dose: 0.125 mg Furosemide (Lasix Injection -) 40 mg IVPUSH DAILY [facility] Last Admin: 02/02/17 09:06 Dose: 40 mg Levofloxacin (Levaquin 500 Mg Premixed Ivpb -) 100 mls @ 100 mls/hr IVPB DAILY [facility] Last Admin: 02/03/17 09:22 Dose: 100 mls/hr Metoprolol Tartrate (Lopressor -) 12.5 mg PO BID [facility] Last Admin: 02/02/17 21:10 Dose: 12.5 mg Metoprolol Tartrate (Lopressor Injection -) 5 mg IVPUSH Q4H PRN PRN Reason: TACHYCARDIA Last Admin: 02/01/17 20:06 Dose: 5 mg - Objective Vital Signs: Vital Signs Temperature 98 F 02/03/17 08:13 Pulse Rate 94 H 02/03/17 08:13 Respiratory Rate 20 02/03/17 08:13 Blood Pressure 134/72 02/03/17 08:13 O2 Sat by Pulse Oximetry (%) 92 L 02/02/17 21:00 Labs: CBC, BMP 02/03/17 05:35 02/03/17 05:35 INR, PTT INR 1.41 (0.82-1.09) H 02/02/17 15:48 Assessment/Plan echo 01/2017: nl lv/rv, sev brad, mod mr, mod-sev tr, rvsp 30-40, small-mod pericardial eff, no tamponade a/p: 86 m hx afib, muscular dystrophy, here with sob, cough, yellow sputum. sob, pna, acute diastolic chf exacerbation: -possible aspiration pna, ct chest showing b/l consolidations, on abx now -failed swallow eval, planned for peg this week-->no cardiac contraindications, will hold asa for now -possible dchf/RHF (TR) as well as bnp a little high and le edema resolved after iv lasix -no signs acs, ce's neg x2 -On 02/01 had episode of sob, possibly related to aspiration but imaging shows effusions as well so will cont with iv lasix 40 qd for now, monitor daily chem7 -echo with nl lvef afib: -rate controlled, cont bb and dig (level ok) -not on ac at home, only ASA -details of prior AC decisions and risks not known to us, hence will not change prior mgmt plan at present time -pt should have outpt cardio f/u where, after appropriate observation period and getting to know pt falls risk, can reconsider pericardial eff: -per charts pt had ct chest 12/2016 that reported moderate pericardial eff -echo here shows mild-mod pericardial eff -no signs of tamponade here -monitor for now
[2017-02-03] MEDS: METOPROLOL TARTRATE 25 MG TABLET (FP) PO SCH ×2 (09:33→21:33)
[2017-02-03] MEDS: DIGOXIN 0.125 MG TABLET (FP) PO SCH (09:33)
[2017-02-03] MEDS: FUROSEMIDE 40 MG/4 ML INJECTABLE VIAL IVPUSH SCH (10:04)
[2017-02-03] MEDS ORDERED: PROPOFOL 20 ML ONE (10:15)
--- NOTE | 2017-02-03 11:29 | PN ---
Progress Note (short form) - Note Progress Note: GI Procedure Note: Please see scanned PEG insertion report. Will begin feedings. Keep head of bed elevated to prevent aspiration. Problem List - Problems (1) Atrial dilatation, left Code(s): I51.7 - CARDIOMEGALY (2) Atrial dilatation, right Code(s): I51.7 - CARDIOMEGALY
[2017-02-03] MEDS: ALBUTEROL SO4 0.083% IH SOL 2.5 MG/3 ML VIAL.NEB. NEB PRN (12:10)
--- NOTE | 2017-02-03 12:26 | PN ---
Progress Note, [employer] - Note Progress Note: PEG inserted today. Pt/family pending education regarding TF education. They would like Prakash to go home. Selected Entries 02/01/17 02/01/17 02/01/17 02:52 05:45 08:15 Breakfast Supper Temperature 98.2 F 97.2 F L 98.2 F 02/01/17 02/01/17 02/01/17 11:24 14:05 17:00 Breakfast 50% Supper Temperature 98.4 F 98.5 F 02/01/17 02/01/17 02/02/17 19:25 20:23 02:00 Breakfast Supper 50% Temperature 98.7 F 99.2 F 02/02/17 02/02/17 02/02/17 06:00 08:23 11:38 Breakfast 50% Supper Temperature 97.8 F 98 F 02/02/17 02/02/17 02/02/17 14:13 17:00 19:58 Breakfast Supper 50% Temperature 98.2 F 98.5 F 02/02/17 02/03/17 02/03/17 20:56 02:00 06:00 Breakfast Supper Temperature 98.7 F 97.5 F L 97.8 F 02/03/17 02/03/17 08:13 11:12 Breakfast Supper Temperature [address] f/u regarding GT feeding as well as PO trials, as desired and tolerated, likely at home. Pt did NOT tolerate applesauce yesterday, requiring suctioning per nursing. If PO intake is desired, pt does best with single sips of thin liquid. Consider Ensure clear, thin broth, etc. Seated fully upright,one sip at a time, allow pt to swallow several times to clear residue through UES, feed VERY slowly. Monitor tolerance.
[2017-02-03] MEDS: PANTOPRAZOLE SOD 40 MG SUSPENSION PACKET PEG SCH (13:57)
[2017-02-03] MEDS: METOPROLOL TARTRATE 5 MG/5 ML VIAL IVPUSH PRN (14:30)
[2017-02-03] MEDS ORDERED: POTASSIUM CHLORIDE ORAL LIQUID 20 MEQ/15 ML PO ONE (17:57)
--- NOTE | 2017-02-03 18:01 | PN ---
Progress Note, Physician History of Present Illness: Pt w/o CP, palp., abd pain, SOB Pt. is s/p PEG insertion - Current Medication List Current Medications: Active Medications Albuterol Sulfate (Ventolin 0.083% Nebulizer Soln -) 1 amp NEB Q4H PRN PRN Reason: SHORT OF BREATH/WHEEZING Last Admin: 02/03/17 12:10 Dose: 1 amp Bacitracin (Bacitracin -) 1 applic TP BID [facility] Digoxin (Lanoxin -) 0.125 mg PO DAILY [facility] Last Admin: 02/03/17 09:33 Dose: Not Given Furosemide (Lasix Injection -) 40 mg IVPUSH DAILY [facility] Last Admin: 02/03/17 10:04 Dose: 40 mg Levofloxacin (Levaquin 500 Mg Premixed Ivpb -) 100 mls @ 100 mls/hr IVPB DAILY [facility] Last Admin: 02/03/17 09:22 Dose: 100 mls/hr Metoprolol Tartrate (Lopressor -) 12.5 mg PO BID [facility] Last Admin: 02/03/17 09:33 Dose: Not Given Metoprolol Tartrate (Lopressor Injection -) 5 mg IVPUSH Q4H PRN PRN Reason: TACHYCARDIA Last Admin: 02/03/17 14:30 Dose: 5 mg Pantoprazole Sodium (Protonix Packets For Oral Suspension -) 40 mg PEG DAILY [facility] Last Admin: 02/03/17 13:57 Dose: 40 mg Potassium Chloride (Potassium Chloride Oral Liquid) 40 meq PO ONCE ONE Stop: 02/03/17 17:58 - Objective Vital Signs: Vital Signs Temperature 97.5 F L 02/03/17 11:12 Pulse Rate 150 H 02/03/17 14:30 Respiratory Rate 24 02/03/17 12:51 Blood Pressure 107/66 02/03/17 14:30 O2 Sat by Pulse Oximetry (%) 92 L 02/03/17 12:51 Constitutional: Yes: No Distress, Calm Cardiovascular: Yes: Tachycardia, S1, S2 Respiratory: Yes: Regular, Rales Gastrointestinal: Yes: Normal Bowel Sounds, Soft, Other (PEG) Edema: No Neurological: Yes: Alert, Oriented Labs: CBC, BMP 02/03/17 05:35 02/03/17 05:35 INR, PTT INR 1.41 (0.82-1.09) H 02/02/17 15:48 Problem List - Problems (1) Shortness of breath Code(s): R06.02 - SHORTNESS OF BREATH (2) CHF exacerbation Code(s): I50.9 - HEART FAILURE, UNSPECIFIED (3) Pneumonia Code(s): J18.9 - PNEUMONIA, UNSPECIFIED ORGANISM (4) Muscular dystrophy Code(s): G71.0 - MUSCULAR DYSTROPHY (5) Dysphagia Assessment/Plan: s/p PEG insertion today Code(s): R13.10 - DYSPHAGIA, UNSPECIFIED (6) Hypokalemia Assessment/Plan: to replete K; to monitor electrolytes in AM Code(s): E87.6 - HYPOKALEMIA (7) Mitral regurgitation Code(s): I34.0 - NONRHEUMATIC MITRAL (VALVE) INSUFFICIENCY (8) Tricuspid regurgitation Code(s): I07.1 - RHEUMATIC TRICUSPID INSUFFICIENCY (9) Pulmonary hypertension Code(s): I27.2 - OTHER SECONDARY PULMONARY HYPERTENSION Assessment/Plan SOB improved after IV Lasix and on BIPAP. Cardio consult appreciated. Pulmonary consult appreciated. Started IV Levaquin Admitted to monitor bed DVT prophylaxis. Gi consult appreciated Swallow eval. appreciated. AM labs
--- NOTE | 2017-02-03 18:43 | PN ---
Progress Note (short form) - Note Progress Note: CC: SOb s: no cp palps. Had peg placed today. + mild dizziness. sob stable o: Current Medications Albuterol Sulfate (Ventolin 0.083% Nebulizer Soln -) 1 amp NEB Q4H PRN PRN Reason: SHORT OF BREATH/WHEEZING Last Admin: 02/03/17 12:10 Dose: 1 amp Bacitracin (Bacitracin -) 1 applic TP BID [facility] Digoxin (Lanoxin -) 0.125 mg PO DAILY [facility] Last Admin: 02/03/17 09:33 Dose: Not Given Furosemide (Lasix Injection -) 40 mg IVPUSH DAILY [facility] Last Admin: 02/03/17 10:04 Dose: 40 mg Levofloxacin (Levaquin 500 Mg Premixed Ivpb -) 100 mls @ 100 mls/hr IVPB DAILY [facility] Last Admin: 02/03/17 09:22 Dose: 100 mls/hr Metoprolol Tartrate (Lopressor -) 12.5 mg PO BID [facility] Last Admin: 02/03/17 09:33 Dose: Not Given Metoprolol Tartrate (Lopressor Injection -) 5 mg IVPUSH Q4H PRN PRN Reason: TACHYCARDIA Last Admin: 02/03/17 14:30 Dose: 5 mg Pantoprazole Sodium (Protonix Packets For Oral Suspension -) 40 mg PEG DAILY [facility] Last Admin: 02/03/17 13:57 Dose: 40 mg Vital Signs - 24 hr 02/02/17 02/02/17 02/03/17 20:56 21:00 02:00 Temperature 98.7 F 97.5 F L Pulse Rate 98 H 88 Respiratory 18 20 Rate Blood Pressure 130/64 113/71 O2 Sat by Pulse 92 L Oximetry (%) 02/03/17 02/03/17 02/03/17 06:00 08:00 08:13 Temperature 97.8 F 98 F Pulse Rate 78 94 H Respiratory 20 20 20 Rate Blood Pressure 115/56 134/72 O2 Sat by Pulse 93 L Oximetry (%) 02/03/17 02/03/17 02/03/17 11:12 11:27 11:42 Temperature 97.5 F L Pulse Rate 93 H 104 H 106 H Respiratory 20 26 H 24 Rate Blood Pressure 107/68 119/72 125/102 O2 Sat by Pulse 97 92 L 86 L Oximetry (%) 02/03/17 02/03/17 02/03/17 11:57 12:12 12:27 Temperature Pulse Rate 105 H 97 H 94 H Respiratory 22 92 H 24 Rate Blood Pressure 139/82 141/84 138/78 O2 Sat by Pulse 89 L 24 L 91 L Oximetry (%) 02/03/17 02/03/17 02/03/17 12:38 12:51 14:30 Temperature Pulse Rate 97 H 97 H 150 H Respiratory 18 24 Rate Blood Pressure 119/69 119/69 107/66 O2 Sat by Pulse 94 L 92 L Oximetry (%) 02/03/17 18:00 Temperature 97.5 F L Pulse Rate 97 H Respiratory 20 Rate Blood Pressure 110/60 O2 Sat by Pulse Oximetry (%) Intake & Output 02/01/17 02/02/17 02/03/17 02/04/17 07:59 07:59 07:59 07:59 Intake Total 150 300 200 300 Output Total 200 481 8801 400 Balance -400 -500 -850 -100 nad no jvd irreg s1s2 no mrg scattered rhonchi, bibasilar dullness aaox3 no le e/c/c abd nt nd pos bs no jaundice diaphoresis weak upper and lower ext. CBC, BMP 02/03/17 05:35 02/03/17 05:35 tele: afib, overall rate controlled. spike in HR this afternoon (metoprolol held before procedure) ecg 01/29/17: afib, vr 80, nl qtc, non spec tw changes, no st changes echo 01/2017: nl lv/rv, sev brad, mod mr, mod-sev tr, rvsp 30-40, small-mod pericardial eff, no tamponade a/p: 86 m hx afib, muscular dystrophy, here with sob, cough, yellow sputum. sob, pna, acute diastolic chf exacerbation: -possible aspiration pna, ct chest showing b/l consolidations, on abx now -failed swallow eval, planned for peg this week-->no cardiac contraindications, will hold asa for now -possible dchf/RHF (TR) as well as bnp a little high and le edema resolved after iv lasix -no signs acs, ce's neg x2 -On 02/01 had episode of sob, possibly related to aspiration but imaging shows effusions as well so will cont with iv lasix 40 qd for now, monitor daily chem7 - 02/03: appears euvolemic. will d/c iv lasix. transition to po. -echo with nl lvef afib: -rate controlled, cont bb and dig (level ok) -not on ac at home, defer to his outpt MD - resume asa if ok per gi pericardial eff: -per charts pt had ct chest 12/2016 that reported moderate pericardial eff -echo here shows mild-mod pericardial eff -no signs of tamponade here -monitor for now
[2017-02-03] MEDS: BACITRACIN 30 GM TUBE TOPICAL OINTMENT TP SCH (21:42)
[2017-02-04 07:44] LABS: CALCIUM 8.8 mg/dL (8.5-10.1); COCKROFT - GAULT 212.93; CREATININE 0.2 mg/dL (0.7-1.3)
[2017-02-04] MEDS: LEVOFLOXACIN 500 MG IVPB 100 ML IVPB SCH (09:15)
[2017-02-04] MEDS: BACITRACIN 30 GM TUBE TOPICAL OINTMENT TP SCH ×2 (09:15→21:27)
[2017-02-04] MEDS: DIGOXIN 0.125 MG TABLET (FP) PO SCH (09:15)
[2017-02-04] MEDS: FUROSEMIDE 40 MG TABLET (FP) PO SCH (09:16)
[2017-02-04] MEDS: METOPROLOL TARTRATE 25 MG TABLET (FP) PO SCH ×3 (09:16→21:27)
[2017-02-04] MEDS: PANTOPRAZOLE SOD 40 MG SUSPENSION PACKET PEG SCH (09:16)
--- NOTE | 2017-02-04 09:52 | PN ---
Progress Note (short form) - Note Progress Note: CC: SOb s: no cp palps. had peg placed yesterday. no dizziness today sob stable. today receiving first dose of po lasix o: Current Medications Albuterol Sulfate (Ventolin 0.083% Nebulizer Soln -) 1 amp NEB Q4H PRN PRN Reason: SHORT OF BREATH/WHEEZING Last Admin: 02/03/17 12:10 Dose: 1 amp Bacitracin (Bacitracin -) 1 applic TP BID [facility] Last Admin: 02/04/17 09:15 Dose: 1 applic Digoxin (Lanoxin -) 0.125 mg PO DAILY [facility] Last Admin: 02/04/17 09:15 Dose: 0.125 mg Furosemide (Lasix -) 40 mg PO DAILY [facility] Last Admin: 02/04/17 09:16 Dose: 40 mg Levofloxacin (Levaquin 500 Mg Premixed Ivpb -) 100 mls @ 100 mls/hr IVPB DAILY [facility] Last Admin: 02/04/17 09:15 Dose: 100 mls/hr Metoprolol Tartrate (Lopressor -) 12.5 mg PO BID [facility] Last Admin: 02/04/17 09:16 Dose: 12.5 mg Metoprolol Tartrate (Lopressor Injection -) 5 mg IVPUSH Q4H PRN PRN Reason: TACHYCARDIA Last Admin: 02/03/17 14:30 Dose: 5 mg Pantoprazole Sodium (Protonix Packets For Oral Suspension -) 40 mg PEG DAILY [facility] Last Admin: 02/04/17 09:16 Dose: 40 mg Vital Signs - 24 hr 02/03/17 02/03/17 02/03/17 11:12 11:27 11:42 Temperature 97.5 F L Pulse Rate 93 H 104 H 106 H Respiratory 20 26 H 24 Rate Blood Pressure 107/68 119/72 125/102 O2 Sat by Pulse 97 92 L 86 L Oximetry (%) 02/03/17 02/03/17 02/03/17 11:57 12:12 12:27 Temperature Pulse Rate 105 H 97 H 94 H Respiratory 22 92 H 24 Rate Blood Pressure 139/82 141/84 138/78 O2 Sat by Pulse 89 L 24 L 91 L Oximetry (%) 02/03/17 02/03/17 02/03/17 12:38 12:51 14:30 Temperature Pulse Rate 97 H 97 H 150 H Respiratory 18 24 Rate Blood Pressure 119/69 119/69 107/66 O2 Sat by Pulse 94 L 92 L Oximetry (%) 02/03/17 02/03/17 02/03/17 18:00 21:00 21:31 Temperature 97.5 F L 97.3 F L Pulse Rate 97 H 109 H Respiratory 20 20 Rate Blood Pressure 110/60 103/78 O2 Sat by Pulse 91 L Oximetry (%) 02/04/17 02/04/17 02/04/17 02:00 05:23 09:15 Temperature 98 F 98.6 F Pulse Rate 98 H 103 H 90 Respiratory 20 20 Rate Blood Pressure 114/62 117/71 O2 Sat by Pulse Oximetry (%) Intake & Output 02/02/17 02/03/17 02/04/17 02/05/17 07:59 07:59 07:59 07:59 Intake Total 300 200 720 Output Total 800 1050 600 Balance -500 -850 120 nad calm no jvd, calm irreg s1s2 no mrg scattered rhonchi, bibasilar dullness. poor effort. aaox3 no le e/c/c abd nt nd pos bs no jaundice diaphoresis weak upper and lower ext. CBC, BMP 02/03/17 05:35 02/04/17 05:35 tele: afib, overall rate controlled. ecg 01/29/17: afib, vr 80, nl qtc, non spec tw changes, no st changes echo 01/2017: nl lv/rv, sev brad, mod mr, mod-sev tr, rvsp 30-40, small-mod pericardial eff, no tamponade a/p: 86 m hx afib, muscular dystrophy, here with sob, cough, yellow sputum. sob, pna, acute diastolic chf exacerbation: -possible aspiration pna, ct chest showing b/l consolidations, on abx now -failed swallow eval, planned for peg this week-->no cardiac contraindications, will hold asa for now -possible dchf/RHF (TR) as well as bnp a little high and le edema resolved after iv lasix -no signs acs, ce's neg x2 -On 02/01 had episode of sob, possibly related to aspiration but imaging shows effusions as well so will cont with iv lasix 40 qd for now, monitor daily chem7 - 02/03: appears euvolemic. will d/c iv lasix. transition to po. - 02/04: CXR improving. transitioning to po lasix today. Monitor weights I/Os -echo with nl lvef afib: -overall rate controlled, cont bb and dig (level ok). Will change bb to tid dosing for better 24 hour contorl. Will repeat dig level. electrolyte repletion. -not on ac at home, defer to his outpt MD - resume asa if ok per gi pericardial eff: -per charts pt had ct chest 12/2016 that reported moderate pericardial eff -echo here shows mild-mod pericardial eff -no signs of tamponade here -monitor for now stable from CV perspective ok to d/c tele
--- NOTE | 2017-02-04 11:00 | PN ---
Progress Note, Physician History of Present Illness: Pt w/o CP, palp., abd pain, SOB Pt. is s/p PEG insertion yesterday, tolerating TF; pt's at bedside - Current Medication List Current Medications: Active Medications Albuterol Sulfate (Ventolin 0.083% Nebulizer Soln -) 1 amp NEB Q4H PRN PRN Reason: SHORT OF BREATH/WHEEZING Last Admin: 02/03/17 12:10 Dose: 1 amp Bacitracin (Bacitracin -) 1 applic TP BID [facility] Last Admin: 02/04/17 09:15 Dose: 1 applic Digoxin (Lanoxin -) 0.125 mg PO DAILY [facility] Last Admin: 02/04/17 09:15 Dose: 0.125 mg Furosemide (Lasix -) 40 mg PO DAILY [facility] Last Admin: 02/04/17 09:16 Dose: 40 mg Levofloxacin (Levaquin 500 Mg Premixed Ivpb -) 100 mls @ 100 mls/hr IVPB DAILY [facility] Last Admin: 02/04/17 09:15 Dose: 100 mls/hr Metoprolol Tartrate (Lopressor -) 12.5 mg PO BID [facility] Last Admin: 02/04/17 09:16 Dose: 12.5 mg Metoprolol Tartrate (Lopressor Injection -) 5 mg IVPUSH Q4H PRN PRN Reason: TACHYCARDIA Last Admin: 02/03/17 14:30 Dose: 5 mg Pantoprazole Sodium (Protonix Packets For Oral Suspension -) 40 mg PEG DAILY [facility] Last Admin: 02/04/17 09:16 Dose: 40 mg - Objective Vital Signs: Vital Signs Temperature 99 F 02/04/17 10:00 Pulse Rate 102 H 02/04/17 10:00 Respiratory Rate 20 02/04/17 10:00 Blood Pressure 110/60 02/04/17 10:00 O2 Sat by Pulse Oximetry (%) 92 L 02/04/17 09:00 Constitutional: Yes: No Distress, Calm Cardiovascular: Yes: Regular Rate and Rhythm, S1, S2 Respiratory: Yes: Regular, Rales (at bases) Gastrointestinal: Yes: Normal Bowel Sounds, Soft Edema: No Labs: CBC, BMP 02/03/17 05:35 02/04/17 05:35 INR, PTT INR 1.41 (0.82-1.09) H 02/02/17 15:48 Problem List - Problems (1) Shortness of breath Code(s): R06.02 - SHORTNESS OF BREATH (2) CHF exacerbation Code(s): I50.9 - HEART FAILURE, UNSPECIFIED (3) Pneumonia Code(s): J18.9 - PNEUMONIA, UNSPECIFIED ORGANISM (4) Muscular dystrophy Code(s): G71.0 - MUSCULAR DYSTROPHY (5) Dysphagia Assessment/Plan: s/p PEG insertion today; patient would need PEG for the rest of his life. Pt. tolerates thin liquids only, for comfort; I reinforced to pt and not to try any other type of food. Code(s): R13.10 - DYSPHAGIA, UNSPECIFIED (6) Hypokalemia Assessment/Plan: corrected; to monitor electrolytes in AM Code(s): E87.6 - HYPOKALEMIA (7) Mitral regurgitation Code(s): I34.0 - NONRHEUMATIC MITRAL (VALVE) INSUFFICIENCY (8) Tricuspid regurgitation Code(s): I07.1 - RHEUMATIC TRICUSPID INSUFFICIENCY (9) Pulmonary hypertension Code(s): I27.2 - OTHER SECONDARY PULMONARY HYPERTENSION Assessment/Plan SOB improved after IV Lasix and on BIPAP. Cardio consult appreciated. Pulmonary consult appreciated. Started IV Levaquin Admitted to monitor bed DVT prophylaxis. Gi consult appreciated; s/p PEG insertion yesterday; pt's to learn to use the PEG tube. I recommended Rehab.; both to think about it. Swallow eval. appreciated. AM labs
--- NOTE | 2017-02-04 11:32 | PN ---
Progress Note, Physician History of Present Illness: pulmonary alert,less dyspneic,s/p peg yesterday tolerated procedure well - Current Medication List Current Medications: Active Medications Albuterol Sulfate (Ventolin 0.083% Nebulizer Soln -) 1 amp NEB Q4H PRN PRN Reason: SHORT OF BREATH/WHEEZING Last Admin: 02/03/17 12:10 Dose: 1 amp Bacitracin (Bacitracin -) 1 applic TP BID [facility] Last Admin: 02/04/17 09:15 Dose: 1 applic Digoxin (Lanoxin -) 0.125 mg PO DAILY [facility] Last Admin: 02/04/17 09:15 Dose: 0.125 mg Furosemide (Lasix -) 40 mg PO DAILY [facility] Last Admin: 02/04/17 09:16 Dose: 40 mg Levofloxacin (Levaquin 500 Mg Premixed Ivpb -) 100 mls @ 100 mls/hr IVPB DAILY [facility] Last Admin: 02/04/17 09:15 Dose: 100 mls/hr Metoprolol Tartrate (Lopressor Injection -) 5 mg IVPUSH Q4H PRN PRN Reason: TACHYCARDIA Last Admin: 02/03/17 14:30 Dose: 5 mg Metoprolol Tartrate (Lopressor -) 12.5 mg PO TID [facility] Pantoprazole Sodium (Protonix Packets For Oral Suspension -) 40 mg PEG DAILY [facility] Last Admin: 02/04/17 09:16 Dose: 40 mg - Objective Vital Signs: Vital Signs Temperature 99 F 02/04/17 10:00 Pulse Rate 102 H 02/04/17 10:00 Respiratory Rate 20 02/04/17 10:00 Blood Pressure 110/60 02/04/17 10:00 O2 Sat by Pulse Oximetry (%) 92 L 02/04/17 09:00 Constitutional: Yes: Calm, Thin Eyes: Yes: WNL HENT: Yes: WNL Neck: Yes: WNL Cardiovascular: Yes: Pulse Irregular, S1, S2 Respiratory: Yes: Rales (bibasilar rales) Gastrointestinal: Yes: Normal Bowel Sounds, Soft Extremities: Yes: WNL Edema: No Labs: CBC, BMP 02/03/17 05:35 02/04/17 05:35 INR, PTT INR 1.41 (0.82-1.09) H 02/02/17 15:48 - ....Imaging Chest X-ray: Report Reviewed, Image Reviewed (mild increased markings LLL) Assessment/Plan Problem List - Problems (1) CHF exacerbation Code(s): I50.9 - HEART FAILURE, UNSPECIFIED (2) Muscular dystrophy Code(s): G71.0 - MUSCULAR DYSTROPHY (3) Atrial fibrillation Code(s): I48.91 - UNSPECIFIED ATRIAL FIBRILLATION (4) Atelectasis Code(s): J98.11 - ATELECTASIS Assessment/Plan Acute on Chronic LV Diastolic Heart Failure improving Atrial Fibrillation Pulmonary HTN Moderate Mitral Regurgitation Atelectasis r/o Pneumonia r/o Aspiration Muscular Dystrophy - lasix - monitor urine output, creatinine - daily weights, I/Os - incentive spirometry - check vital capacity, NIF and peak flow for baseline function - O2, BiPAP as needed - anticoagulation per cardiology DR LOPEZ
--- NOTE | 2017-02-04 11:33 | PN ---
Progress Note, HELP DESK TECHNICIAN - Note Progress Note: Pt states he is feeling well. Asking for water as he is thirsty. Pt's will need training in TF. Reviewed with pt and need for mouth care and hob elevation. If PO intake is desired, pt does best with single sips of thin liquid. Consider Ensure clear, thin broth, etc. Seated fully upright,one sip at a time, allow pt to swallow several times to clear residue through UES, feed VERY slowly. Small amount for quality of life. Monitor tolerance. d/c if cough, congestion,fever.
--- NOTE | 2017-02-04 14:59 | PN ---
GI Progress Note Subjective: No acute events Patient tolerating tube feeds per nurse present bedside - Objective Vital Signs: Vital Signs Temperature 98.9 F 02/04/17 14:46 Pulse Rate 93 H 02/04/17 14:46 Respiratory Rate 20 02/04/17 14:46 Blood Pressure 107/75 02/04/17 14:46 O2 Sat by Pulse Oximetry (%) 92 L 02/04/17 09:00 Constitutional: Calm Cardiovascular: Yes: Regular Rate and Rhythm Gastrointestinal Inspection: Yes: Other (G-Tube in place in LUQ. Site is clean, G-Tube rotating freel and noted to be at the 2cm beatriz at the level of the abdominal wall. Mild tenderness at the G-Tube site). No: Distention ...Auscultate: Yes: Normoactive Bowel Sounds Edema: No Labs: CBC, BMP 02/03/17 05:35 02/04/17 05:35 INR, PTT INR 1.41 (0.82-1.09) H 02/02/17 15:48 Problem List - Problems (1) Dysphagia Assessment/Plan: S/P PEG Site c/d/i and patient tolerating tube feeds Bacitracin to PEG site BID for 5 days Keep loose fitting abdominal binder in place Aspiration precautions. keep HOB 35 degrees while feeding and 1 hour after feeding Code(s): R13.10 - DYSPHAGIA, UNSPECIFIED
[2017-02-04] MEDS: ALBUTEROL SO4 0.083% IH SOL 2.5 MG/3 ML VIAL.NEB. NEB PRN (17:20)
[2017-02-05] MEDS: METOPROLOL TARTRATE 25 MG TABLET (FP) PO SCH ×3 (06:17→21:16)
[2017-02-05 07:45] LABS: ANION GAP 8 (8-16); CALCIUM 8.5 mg/dL (8.5-10.1); CO2 37 mmol/L (21-32); COCKROFT - GAULT 212; CREATININE < 0.2 mg/dL (0.7-1.3); GLUCOSE,RANDOM 107 mg/dL (74-106)
[2017-02-05 07:59] LABS: DIGOXIN LEVEL 0.6704 ng/ml (0.8-2.0)
[2017-02-05] MEDS: LEVOFLOXACIN 500 MG IVPB 100 ML IVPB SCH (09:19)
[2017-02-05] MEDS: DIGOXIN 0.125 MG TABLET (FP) PO SCH (09:19)
[2017-02-05] MEDS: PANTOPRAZOLE SOD 40 MG SUSPENSION PACKET PEG SCH (09:19)
[2017-02-05] MEDS: FUROSEMIDE 40 MG TABLET (FP) PO SCH (09:19)
[2017-02-05] MEDS: BACITRACIN 30 GM TUBE TOPICAL OINTMENT TP SCH ×2 (09:25→21:18)
--- NOTE | 2017-02-05 11:37 | PN ---
Progress Note (short form) - Note Progress Note: s: no cp sob palps dizzy; has peg now; still with aspiration if tries to take anything by mouth o: Vital Signs Period Temp Pulse Resp BP Sys/Chilel Pulse Ox Last 24 Hr 97.6 F-98.9 F 89-106 20-28 107-137/62-81 90-93 nad no jvd irreg s1s2 no mrg cta bl nl eff aaox3 no le e/c/c abd nt nd pos bs no jaundice diaphoresis Current Medications Generic Name Dose Route Start Last Admin Trade Name Freq PRN Reason Stop Dose Admin Albuterol Sulfate 1 amp 02/01/17 14:36 02/04/17 17:20 Ventolin 0.083% Nebulizer Soln - NEB 1 amp Q4H PRN Administration SHORT OF BREATH/WHEEZING Bacitracin 1 applic 02/03/17 22:00 02/05/17 09:25 Bacitracin - TP 1 applic BID FROILAN Administration Digoxin 0.125 mg 01/30/17 10:00 02/05/17 09:19 Lanoxin - PO 0.125 mg DAILY FROILAN Administration Furosemide 40 mg 02/04/17 10:00 02/05/17 09:19 Lasix - PO 40 mg DAILY FROILAN Administration Levofloxacin 100 mls @ 100 mls/hr 02/01/17 22:15 02/05/17 09:19 Levaquin 500 Mg Premixed Ivpb - IVPB 100 mls/hr DAILY FROILAN Administration Metoprolol Tartrate 5 mg 02/01/17 11:09 02/03/17 14:30 Lopressor Injection - IVPUSH 5 mg Q4H PRN Administration TACHYCARDIA Metoprolol Tartrate 12.5 mg 02/04/17 14:00 02/05/17 06:17 Lopressor - PO 12.5 mg TID FROILAN Administration Pantoprazole Sodium 40 mg 02/03/17 11:45 02/05/17 09:19 Protonix Packets For Oral Suspension - PEG 40 mg DAILY FROILAN Administration CBC, BMP 02/03/17 05:35 02/05/17 06:20 ecg 01/29/17: afib, vr 80, nl qtc, non spec tw changes, no st changes echo 01/2017: nl lv/rv, sev brad, mod mr, mod-sev tr, rvsp 30-40, small-mod pericardial eff, no tamponade a/p: 86 m hx afib, muscular dystrophy, here with sob, cough, yellow sputum. sob, pna, acute diastolic chf exacerbation: -possible aspiration pna, ct chest showing b/l consolidations, on abx now -failed swallow eval so now has peg -possible dchf/RHF (TR) as well as bnp a little high and le edema resolved after iv lasix -no signs acs, ce's neg x2 -On 02/01 had episode of sob, possibly related to aspiration but imaging shows effusions as well so will cont with iv lasix 40 qd for now, monitor daily chem7 - 02/03: appears euvolemic. will d/c iv lasix. transition to po. - 02/04: CXR improving. transitioning to po lasix today. Monitor weights I/Os - 02/05: cont po lasix - echo here with nl lvef afib: -overall rate controlled, cont bb and dig (level ok). -not on ac at home, defer to his outpt MD -resume asa if ok per gi post peg pericardial eff: -per charts pt had ct chest 12/2016 that reported moderate pericardial eff -echo here shows mild-mod pericardial eff -no signs of tamponade here -monitor for now
--- NOTE | 2017-02-05 12:36 | PN ---
Progress Note, Physician History of Present Illness: Pt w/o CP, palp., abd pain, SOB Pt. is s/p PEG insertion yesterday; pt's at bedside- she doesn't know how to use the PEG. Per pt.'s nurse pt is tolerated maximum 4 oz out of 8 oz, as pt. becomes congested. - Current Medication List Current Medications: Active Medications Albuterol Sulfate (Ventolin 0.083% Nebulizer Soln -) 1 amp NEB Q4H PRN PRN Reason: SHORT OF BREATH/WHEEZING Last Admin: 02/04/17 17:20 Dose: 1 amp Bacitracin (Bacitracin -) 1 applic TP BID [facility] Last Admin: 02/05/17 09:25 Dose: 1 applic Digoxin (Lanoxin -) 0.125 mg PO DAILY [facility] Last Admin: 02/05/17 09:19 Dose: 0.125 mg Furosemide (Lasix -) 40 mg PO DAILY [facility] Last Admin: 02/05/17 09:19 Dose: 40 mg Levofloxacin (Levaquin 500 Mg Premixed Ivpb -) 100 mls @ 100 mls/hr IVPB DAILY [facility] Last Admin: 02/05/17 09:19 Dose: 100 mls/hr Metoprolol Tartrate (Lopressor Injection -) 5 mg IVPUSH Q4H PRN PRN Reason: TACHYCARDIA Last Admin: 02/03/17 14:30 Dose: 5 mg Metoprolol Tartrate (Lopressor -) 12.5 mg PO TID [facility] Last Admin: 02/05/17 06:17 Dose: 12.5 mg Pantoprazole Sodium (Protonix Packets For Oral Suspension -) 40 mg PEG DAILY [facility] Last Admin: 02/05/17 09:19 Dose: 40 mg - Objective Vital Signs: Vital Signs Temperature 97.6 F 02/05/17 05:00 Pulse Rate 96 H 02/05/17 09:19 Respiratory Rate 28 H 02/05/17 05:00 Blood Pressure 137/69 02/05/17 05:00 O2 Sat by Pulse Oximetry (%) 92 L 02/05/17 11:31 Constitutional: Yes: No Distress, Calm Cardiovascular: Yes: Regular Rate and Rhythm, S1, S2 Respiratory: Yes: Regular, Rales (scattered, bilat.) Gastrointestinal: Yes: Normal Bowel Sounds, Soft. No: Tenderness Edema: No Neurological: Yes: Alert, Oriented Labs: CBC, BMP 02/03/17 05:35 02/05/17 06:20 INR, PTT INR 1.41 (0.82-1.09) H 02/02/17 15:48 Problem List - Problems (1) Shortness of breath Code(s): R06.02 - SHORTNESS OF BREATH (2) CHF exacerbation Code(s): I50.9 - HEART FAILURE, UNSPECIFIED (3) Pneumonia Code(s): J18.9 - PNEUMONIA, UNSPECIFIED ORGANISM (4) Muscular dystrophy Code(s): G71.0 - MUSCULAR DYSTROPHY (5) Dysphagia Assessment/Plan: s/p PEG insertion yesterday; patient would need PEG for the rest of his life. Pt. tolerates thin liquids only, for comfort; I reinforced to pt and not to try any other type of food. Code(s): R13.10 - DYSPHAGIA, UNSPECIFIED (6) Hypokalemia Assessment/Plan: to replete; to monitor electrolytes in AM Code(s): E87.6 - HYPOKALEMIA (7) Mitral regurgitation Code(s): I34.0 - NONRHEUMATIC MITRAL (VALVE) INSUFFICIENCY (8) Tricuspid regurgitation Code(s): I07.1 - RHEUMATIC TRICUSPID INSUFFICIENCY (9) Pulmonary hypertension Code(s): I27.2 - OTHER SECONDARY PULMONARY HYPERTENSION Assessment/Plan SOB improved after IV Lasix and on BIPAP. Cardio consult appreciated. Pulmonary consult appreciated. Started IV Levaquin Admitted to monitor bed now on regular floor DVT prophylaxis. Gi consult appreciated; s/p PEG insertion yesterday; pt's to learn to use the PEG tube. I recommended Rehab. Pt is refusing he wants home. Swallow eval. appreciated. AM labs Check O2 sat on RA.
[2017-02-05] MEDS ORDERED: POTASSIUM CHLORIDE ORAL LIQUID 20 MEQ/15 ML PO ONE ×2 (12:39→15:00)
--- NOTE | 2017-02-05 13:12 | PN ---
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 Pt's will need training in TF. Reviewed with pt and need for mouth care and hob elevation. If pt is not congested and if PO intake is desired, pt does best with single sips of thin liquid. Consider Ensure clear, thin broth, etc. Seated fully upright,one sip at a time, allow pt to swallow several times to clear residue through UES, feed VERY slowly. Small amount for quality of life. Monitor tolerance. d/c if cough, congestion,fever.
--- NOTE | 2017-02-05 17:12 | PN ---
Progress Note (short form) - Note Progress Note: PULMONARY RESTING COMFORTABLY NO CHANGE IN EXAM LABS/MEDS/NOTES/IMAGING REVIEWED (1) CHF exacerbation Code(s): I50.9 - HEART FAILURE, UNSPECIFIED (2) Muscular dystrophy Code(s): G71.0 - MUSCULAR DYSTROPHY (3) Atrial fibrillation Code(s): I48.91 - UNSPECIFIED ATRIAL FIBRILLATION (4) Atelectasis Code(s): J98.11 - ATELECTASIS Assessment/Plan Acute on Chronic LV Diastolic Heart Failure improving Atrial Fibrillation Pulmonary HTN Moderate Mitral Regurgitation Atelectasis Muscular Dystrophy - lasix - monitor urine output, creatinine - daily weights, I/Os - incentive spirometry - check vital capacity, NIF and peak flow for baseline function - O2, BiPAP as needed Olu DRISCOLL MD
[2017-02-06] MEDS: ALBUTEROL SO4 0.083% IH SOL 2.5 MG/3 ML VIAL.NEB. NEB PRN ×4 (02:30→17:55)
[2017-02-06] MEDS: METOPROLOL TARTRATE 25 MG TABLET (FP) PO SCH ×2 (06:11→15:28)
[2017-02-06 08:07] LABS: ANION GAP 7 (8-16); CALCIUM 8.3 mg/dL (8.5-10.1); CO2 37 mmol/L (21-32); COCKROFT - GAULT 161; CREATININE < 0.2 mg/dL (0.7-1.3); GLUCOSE,RANDOM 96 mg/dL (74-106)
[2017-02-06] MEDS ORDERED: POTASSIUM CHLORIDE ORAL LIQUID 20 MEQ/15 ML PO SCH (10:00)
[2017-02-06] MEDS: BACITRACIN 30 GM TUBE TOPICAL OINTMENT TP SCH (10:30)
[2017-02-06] MEDS ORDERED: PT OWN MED DRAWER 7, Y5N ONE (10:34)
[2017-02-06] MEDS: DIGOXIN 0.125 MG TABLET (FP) PO SCH (10:41)
[2017-02-06] MEDS: FUROSEMIDE 40 MG TABLET (FP) PO SCH (10:41)
[2017-02-06] MEDS: PANTOPRAZOLE SOD 40 MG SUSPENSION PACKET PEG SCH (10:41)
--- NOTE | 2017-02-06 10:48 | PN ---
Progress Note (short form) - Note Progress Note: NAD. No documented acute events overnight. Intake & Output 02/03/17 02/04/17 02/05/17 02/06/17 23:59 23:59 23:59 23:59 Intake Total 350 1270 400 0 Output Total 400 200 450 Balance -50 1070 -50 0 Weight 98 lb 6.4 oz Last Vital Signs Temp Pulse Resp BP Pulse Ox 97.6 F 108 H 20 110/55 94 L 02/06/17 06:19 02/06/17 10:41 02/06/17 06:19 02/06/17 06:19 02/06/17 09:06 Active Medications Albuterol Sulfate (Ventolin 0.083% Nebulizer Soln -) 1 amp NEB Q4H PRN PRN Reason: SHORT OF BREATH/WHEEZING Last Admin: 02/06/17 09:25 Dose: 1 amp Bacitracin (Bacitracin -) 1 applic TP BID [facility] Last Admin: 02/05/17 21:18 Dose: 1 applic Digoxin (Lanoxin -) 0.125 mg PO DAILY [facility] Last Admin: 02/06/17 10:41 Dose: 0.125 mg Furosemide (Lasix -) 40 mg PO DAILY [facility] Last Admin: 02/06/17 10:41 Dose: 40 mg Levofloxacin (Levaquin 500 Mg Premixed Ivpb -) 100 mls @ 100 mls/hr IVPB DAILY [facility] Last Admin: 02/05/17 09:19 Dose: 100 mls/hr Metoprolol Tartrate (Lopressor Injection -) 5 mg IVPUSH Q4H PRN PRN Reason: TACHYCARDIA Last Admin: 02/03/17 14:30 Dose: 5 mg Metoprolol Tartrate (Lopressor -) 12.5 mg PO TID [facility] Last Admin: 02/06/17 06:11 Dose: 12.5 mg Pantoprazole Sodium (Protonix Packets For Oral Suspension -) 40 mg PEG DAILY [facility] Last Admin: 02/06/17 10:41 Dose: 40 mg Potassium Chloride (Potassium Chloride Oral Liquid) 20 meq PO DAILY [facility] Last Admin: 02/06/17 10:41 Dose: 20 meq Constitutional: Yes: NAD, Thin Eyes: Yes: WNL HENT: Yes: WNL Neck: Yes: WNL Cardiovascular: Yes: Pulse Irregular, S1, S2 Respiratory: Yes: Rales (bibasilar rales) Gastrointestinal: Yes: Normal Bowel Sounds, Soft Extremities: Yes: WNL Edema: No Labs: Laboratory Results - last 24 hr 02/06/17 06:40 Sodium 142 Potassium 3.7 Chloride 98 Carbon Dioxide 37 H Anion Gap 7 L BUN 28 H Creatinine < 0.2 L Random Glucose 96 Calcium 8.3 L Assessment/Plan Problem List - Problems (1) CHF exacerbation Code(s): I50.9 - HEART FAILURE, UNSPECIFIED (2) Muscular dystrophy Code(s): G71.0 - MUSCULAR DYSTROPHY (3) Atrial fibrillation Code(s): I48.91 - UNSPECIFIED ATRIAL FIBRILLATION (4) Atelectasis Code(s): J98.11 - ATELECTASIS Assessment/Plan Acute on Chronic LV Diastolic Heart Failure improving Atrial Fibrillation Pulmonary HTN Moderate Mitral Regurgitation Atelectasis Suspected Aspiration Pneumonia Muscular Dystrophy - Levaquin - O2 as needed - incentive spirometry - Aspiration precautions - D/C planning Dr Dean
[2017-02-06] MEDS: LEVOFLOXACIN 500 MG IVPB 100 ML IVPB SCH (12:07)
--- NOTE | 2017-02-06 14:36 | PN ---
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 Pt's 's has received training in TF. Reviewed with pt and need for mouth care and hob elevation. If pt is not congested and if PO intake is desired, pt does best with single sips of thin liquid. Consider Ensure clear, thin broth, etc. Seated fully upright,one sip at a time, allow pt to swallow several times to clear residue through UES, feed VERY slowly. Small amount for quality of life. Pt is tolerating sips of water. OJ at bedside. Suggested water or chicken broth , not acidic liquids. Monitor tolerance. d/c if cough, congestion,fever. Reviewed elevating HOB during and after feedings. Scheduled for d/c.
[2017-02-06 14:44] VITALS: BP 107/57; PULSE 107; TEMP 97.4
--- NOTE | 2017-02-06 16:06 | DS ---
Physical Examination Vital Signs: Vital Signs Temperature 97.4 F L 02/06/17 14:24 Pulse Rate 107 H 02/06/17 14:24 Respiratory Rate 20 02/06/17 06:19 Blood Pressure 107/57 02/06/17 14:24 O2 Sat by Pulse Oximetry (%) 90 L 02/06/17 14:30 Findings/Remarks: Pt w/o SOB, CP, palp., abd pain. Pt.'s at bed side, feels comfortable with TF. Constitutional: Yes: No Distress, Calm Cardiovascular: Yes: Regular Rate and Rhythm, S1, S2 Respiratory: Yes: Regular, Other (coarse BS) Gastrointestinal: Yes: Normal Bowel Sounds, Soft. No: Tenderness Edema: No Neurological: Yes: Alert, Oriented Labs: CBC, BMP 02/03/17 05:35 02/06/17 06:40 Discharge Summary Reason For Visit: SHORTNESS OF BREATH Current Active Problems Atelectasis (Acute) Atrial dilatation, left (Acute) Atrial dilatation, right (Acute) Atrial fibrillation (Acute) CHF exacerbation (Acute) Dysphagia (Acute) Hypokalemia (Acute) Mitral regurgitation (Acute) Muscular dystrophy (Acute) Pneumonia (Acute) Pulmonary hypertension (Acute) Shortness of breath (Acute) Tricuspid regurgitation (Acute) Hospital Course: Pt came to ER with worsening cough, found to have PNA. Pt with hx/o muscular dystrophy, worse aover the last few months. Pt was admitted to telemetry, started on IV abtx, BIPAP, Lasix; he SANTI by CE. Pt was seen by Cardio (Dr. Boyle/ [place]), Pulmonary (Dr. Florez). Pt had positive for aspiration MBS, had PEG insertion and started on TF. Pt also with borderline O2 sat on RA, to be provided with O2 suplementation. Pt improved slowly. To be DC'ed home today. Condition: Fair - Instructions Diet, Activity, Other Instructions: By mouth: Liquid only, as instructed. One can (of Jevity 1.5) via tube feeding, every 4 hours, five times a day. Maintain tube feeding as instructed. Give all medications via tube feeding. Referrals: Aster Bennett MD [Staff Physician] - (early next week; patient needs blood work ) Petey Casillas MD [Staff Physician] - (in 1 to 2 weeks) Matheus Florez MD [Staff Physician] - (in 1 to 2 weeks) Disposition: HOME - Home Medications Comprehensive Discharge Medication List: Ambulatory Orders Aspirin [ASA -] 81 mg PO DAILY 01/29/17 Digoxin [Lanoxin -] 0.125 mg PO DAILY 01/29/17 Bacitracin - [Bacitracin Topical Ointment -] 1 applic TP BID tube 02/06/17 Furosemide [Lasix -] 40 mg PO DAILY tablet 02/06/17 Levofloxacin [Levaquin] 500 mg PO DAILY #5 tab 02/06/17, start 02/07/2017 Metoprolol Tartrate [Lopressor -] 12.5 mg PO TID #45 tablet 02/06/17 Pantoprazole Suspension [Protonix Packets For Oral Suspension -] 40 mg PEG DAILY #90 packet 02/06/17 Potassium Chloride [Potassium Chloride Oral Liquid] 20 meq PO DAILY #450 ml 01/20
--- NOTE | 2017-02-06 16:16 | PN ---
Progress Note (short form) - Note Progress Note: Case was discussed with CM pt's nurse few times. Time spent for managing patient's discharge: over 45 minutes Problem List - Problems (1) Shortness of breath Code(s): R06.02 - SHORTNESS OF BREATH (2) CHF exacerbation Code(s): I50.9 - HEART FAILURE, UNSPECIFIED (3) Pneumonia Code(s): J18.9 - PNEUMONIA, UNSPECIFIED ORGANISM (4) Muscular dystrophy Code(s): G71.0 - MUSCULAR DYSTROPHY (5) Dysphagia Code(s): R13.10 - DYSPHAGIA, UNSPECIFIED (6) Hypokalemia Code(s): E87.6 - HYPOKALEMIA (7) Mitral regurgitation Code(s): I34.0 - NONRHEUMATIC MITRAL (VALVE) INSUFFICIENCY (8) Tricuspid regurgitation Code(s): I07.1 - RHEUMATIC TRICUSPID INSUFFICIENCY (9) Pulmonary hypertension Code(s): I27.2 - OTHER SECONDARY PULMONARY HYPERTENSION
--- NOTE | 2017-02-06 17:48 | PN ---
Progress Note (short form) - Note Progress Note: cc: sob s: no cp sob palps dizzy; has peg now; still with aspiration if tries to take anything by mouth o: Current Medications Albuterol Sulfate (Ventolin 0.083% Nebulizer Soln -) 1 amp NEB Q4H PRN PRN Reason: SHORT OF BREATH/WHEEZING Last Admin: 02/06/17 09:25 Dose: 1 amp Bacitracin (Bacitracin -) 1 applic TP BID [facility] Last Admin: 02/06/17 10:30 Dose: 1 applic Digoxin (Lanoxin -) 0.125 mg PO DAILY [facility] Last Admin: 02/06/17 10:41 Dose: 0.125 mg Furosemide (Lasix -) 40 mg PO DAILY [facility] Last Admin: 02/06/17 10:41 Dose: 40 mg Levofloxacin (Levaquin -) 500 mg PO DAILY@0600 [facility] Metoprolol Tartrate (Lopressor Injection -) 5 mg IVPUSH Q4H PRN PRN Reason: TACHYCARDIA Last Admin: 02/03/17 14:30 Dose: 5 mg Metoprolol Tartrate (Lopressor -) 12.5 mg PO TID [facility] Last Admin: 02/06/17 15:28 Dose: 12.5 mg Pantoprazole Sodium (Protonix Packets For Oral Suspension -) 40 mg PEG DAILY [facility] Last Admin: 02/06/17 10:41 Dose: 40 mg Potassium Chloride (Potassium Chloride Oral Liquid) 20 meq PO DAILY [facility] Last Admin: 02/06/17 10:41 Dose: 20 meq Vital Signs - 24 hr 02/05/17 02/05/17 02/05/17 21:00 21:15 23:50 Temperature 97.9 F Pulse Rate 89 92 H Respiratory 20 Rate Blood Pressure 103/66 103/62 O2 Sat by Pulse 95 Oximetry (%) 02/06/17 02/06/17 02/06/17 06:19 09:00 09:06 Temperature 97.6 F Pulse Rate 102 H 93 H Respiratory 20 20 Rate Blood Pressure 110/55 O2 Sat by Pulse 93 L 94 L Oximetry (%) 02/06/17 02/06/17 02/06/17 10:41 11:56 14:24 Temperature 97.4 F L Pulse Rate 108 H 101 H 107 H Respiratory Rate Blood Pressure 107/57 O2 Sat by Pulse 91 L Oximetry (%) 02/06/17 14:30 Temperature Pulse Rate Respiratory Rate Blood Pressure O2 Sat by Pulse 90 L Oximetry (%) Intake & Output 02/04/17 02/05/17 02/06/17 02/07/17 07:59 07:59 07:59 07:59 Intake Total 720 1150 100 980 Output Total 600 450 600 Balance 120 1150 -350 380 Weight 98 lb 6.4 oz nad no jvd + upper airway secretions irreg s1s2 no mrg bibasilar dullness, poor eff aaox3 no le e/c/c abd nt nd pos bs no jaundice diaphoresis CBC, BMP 02/03/17 05:35 02/06/17 06:40 ecg 01/29/17: afib, vr 80, nl qtc, non spec tw changes, no st changes echo 01/2017: nl lv/rv, sev brad, mod mr, mod-sev tr, rvsp 30-40, small-mod pericardial eff, no tamponade a/p: 86 m hx afib, muscular dystrophy, here with sob, cough, yellow sputum. sob, pna, acute diastolic chf exacerbation: -possible aspiration pna, ct chest showing b/l consolidations, on abx now -failed swallow eval so now has peg -possible dchf/RHF (TR) as well as bnp a little high and le edema resolved after iv lasix -no signs acs, ce's neg x2 -On 02/01 had episode of sob, possibly related to aspiration but imaging shows effusions as well so will cont with iv lasix 40 qd for now, monitor daily chem7 - 02/03: appears euvolemic. will d/c iv lasix. transition to po. - 02/04: CXR improving. transitioning to po lasix today. Monitor weights I/Os - 02/05-02/06: cont po lasix - echo here with nl lvef afib: -overall rate controlled, cont bb and dig (level ok). BB uptitrated to tid dosing here, can resume bid dosing as outpatient if bp's continue to run low. -not on ac at home, defer to his outpt MD -resume asa if ok per gi post peg chronic pericardial eff: -per charts pt had ct chest 12/2016 that reported moderate pericardial eff -echo here shows mild-mod pericardial eff -no signs of tamponade here -monitor for now - can repeat echo as outpatient if becomes more tachycardic or hypotensive.
[2017-02-07] MEDS ORDERED: LEVOFLOXACIN 500 MG TABLET (FP) PO SCH (06:00)
== END 2017-02-06 19:14 | disposition home or self-care (01) | DRG 177 ==
LOC: JER 14:49 → JERBED 17:26 → J4W 20:32 → J6S 02-04 17:46
PROVIDERS: ADMIT Internal Medicine; ATTEND Internal Medicine
PROC: 5A09357 Assistance with Respiratory Ventilation, Less than 24 Consecutive Hours, Continuous Positive Airway Pressure (ICD-10-PCS; principal; 2017-01-30)
PROC: 0DH63UZ Insertion of Feeding Device into Stomach, Percutaneous Approach (ICD-10-PCS; 2017-02-03)
PROC: 3E0G76Z Introduction of Nutritional Substance into Upper GI, Via Natural or Artificial Opening (ICD-10-PCS; 2017-02-03)
DX: J69.0 Pneumonitis due to inhalation of food and vomit (principal); I50.33 Acute on chronic diastolic (congestive) heart failure; G71.0 Muscular dystrophy; J98.11 Atelectasis; I48.91 Unspecified atrial fibrillation; I27.2 Other secondary pulmonary hypertension; R13.10 Dysphagia, unspecified; I08.1 Rheumatic disorders of both mitral and tricuspid valves; E87.6 Hypokalemia; Z87.891 Personal history of nicotine dependence
CPT/HCPCS: 36415; 71010-TC; 71250-TC; 74230-TC; 80048; 80053; 80061; 80162; 82550; 83721; 83735; 83880; 84439; 84443; 84484; 85025; 85027; 85610; 92611-GN; 93005; 93010; 93306-TC; 94150; 94640; 94660; 94761; 99283-25; E0194

== ENCOUNTER 2017-02-09 01:53 | Emergency (ER) | payer OTHER, BC ==
[2017-02-09 02:04] VITALS: BP 114/63; PULSE 79; BMI 23.8
--- NOTE | 2017-02-09 02:30 | PDOC ---
History of Present Illness - General History Source: Care Provider - History of Present Illness Initial Comments: 02/09/17 03:34 The patient is a 86-year-old male with a significant past medical history of muscular dystrophy, Afib, and CHF, and presents to the emergency department with G-tube obstruction tonight. As per spouse, the patient was given his crushed medications through the G-tube at 6pm today, but she fears she may not have crushed them enough. She reports that when she tried to give him new pills through the G-tube at 10pm, they didnt go down the tube and it was clogged. She attempted to push it down with a pump with no relief. Denies CP, SOB, headache, or dizziness. No fever, chills, nausea, vomit, diarrhea, constipation, and urinary complaints. Allergies: NKDA Past Surgical History: G-tube Social History: No toxic habits reported. <Aster Scott - Last Filed: 02/09/17 03:34> <Bianca Samaniego - Last Filed: 02/10/17 04:24> - General Chief Complaint: G Tube Problem Stated Complaint: CLOGGED FEEDING TUBE Time Seen by Provider: 02/09/17 02:09 Past History <Aster Scott - Last Filed: 02/09/17 03:34> - Past Medical History Cardiac Disorders: Yes (afib, murmur) Other medical history: muscular distrophy - Surgical History Abdominal Surgery: Yes (feeding tube) Cholecystectomy: Yes - Psycho/Social/Smoking Cessation Hx Anxiety: No Suicidal Ideation: No Smoking History: Never smoked Have you smoked in the past 12 months: No If you are a former smoker, when did you quit?: Information on smoking cessation initiated: No Hx Alcohol Use: No Drug/Substance Use Hx: No Substance Use Type: None <Bianca Samaniego - Last Filed: 02/10/17 04:24> - Past Medical History Allergies/Adverse Reactions: Allergies Allergy/AdvReac Type Severity Reaction Status Date / Time No Known Allergies Allergy Verified 02/09/17 02:03 Home Medications: Ambulatory Orders Aspirin [ASA -] 81 mg PO DAILY 01/29/17 Digoxin [Lanoxin -] 0.125 mg PO DAILY 01/29/17 Bacitracin - [Bacitracin Topical Ointment -] 1 applic TP BID tube 02/06/17 Furosemide [Lasix -] 40 mg PO DAILY tablet 02/06/17 Levofloxacin [Levaquin] 500 mg PO DAILY #5 tab 02/06/17 Metoprolol Tartrate [Lopressor -] 12.5 mg PO TID #45 tablet 02/06/17 Pantoprazole Suspension [Protonix Packets For Oral Suspension -] 40 mg PEG DAILY #90 packet 02/06/17 Potassium Chloride [Potassium Chloride Oral Liquid] 20 meq PO DAILY #450 ml 01/20 Polyethylene Glycol 3350 [Miralax (For Bowel Prep) -] 17 gm PO DAILY PRN #255 gm 02/09/17 Potassium Chloride [Potassium Chloride Oral Liquid] 15 ml PO ONCE #600 ml Review of Systems - Review of Systems Comments:: 02/09/17 03:34 CONSTITUTIONAL: Absent: fever, chills, diaphoresis, generalized weakness, malaise, loss of appetite HEENT: Absent: rhinorrhea, nasal congestion, throat pain, throat swelling, difficulty swallowing, mouth swelling, ear pain, eye pain, visual changes CARDIOVASCULAR: Absent: chest pain, syncope, palpitations, irregular heart rate, lightheadedness , peripheral edema RESPIRATORY: Absent: cough, shortness of breath, dyspnea with exertion, orthopnea, wheezing, stridor, hemoptysis GASTROINTESTINAL: Present: (+) G-tube obstruction Absent: abdominal pain, abdominal distension, nausea, vomiting, diarrhea, constipation, melena, hematochezia GENITOURINARY: Absent: dysuria, frequency, urgency, hesitancy, hematuria, flank pain, genital pain MUSCULOSKELETAL: Absent: myalgia, arthralgia, joint swelling SKIN: Absent: rash, itching, pallor HEMATOLOGIC/IMMUNOLOGIC: Absent: easy bleeding, easy bruising, lymphadenopathy, frequent infections ENDOCRINE: Absent: unexplained weight gain, unexplained weight loss, heat intolerance, cold intolerance NEUROLOGIC: Absent: headache, focal weakness or paresthesias, dizziness, unsteady gait, seizure, mental status changes, bladder or bowel incontinence PSYCHIATRIC: Absent: anxiety, depression, suicidal or homicidal ideation, hallucinations. <Aster Scott - Last Filed: 02/09/17 03:34> *Physical Exam - Vital Signs Last Vital Signs Temp Pulse Resp BP Pulse Ox 79 18 114/63 97 02/09/17 01:57 02/09/17 01:57 02/09/17 01:57 02/09/17 01:57 - Physical Exam Comments: 02/09/17 03:35 GENERAL: Well developed, well nourished. Awake and alert. No acute distress. HEENT: Normocephalic, atraumatic. PERRLA, EOMI. No conjunctival pallor. Sclera are non- icteric. Moist mucous membranes. Oropharynx is clear. NECK: Supple. Full ROM. No JVD. Carotid pulses 2+ and symmetric, without bruits. No thyromegaly. No lymphadenopathy. CARDIOVASCULAR: Regular rate and rhythm. No murmurs, rubs, or gallops. Distal pulses are 2+ and symmetric. PULMONARY: No evidence of respiratory distress. Lungs clear to auscultation bilaterally. No wheezing, rales or rhonchi. ABDOMINAL: (+) G-tube dry and intact, pill fragments stuck inside tube. Soft. Non-tender. Non-distended. No rebound or guarding. No organomegaly. Normoactive bowel sounds. MUSCULOSKELETAL Normal range of motion at all joints. No bony deformities or tenderness. No CVA tenderness. EXTREMITIES: No cyanosis. No clubbing. No edema. No calf tenderness. SKIN: Warm and dry. Normal capillary refill. No rashes. No jaundice. NEUROLOGICAL: Alert, awake, appropriate. Cranial nerves 2-12 intact. No deficits to light touch and temperature in face, upper extremities and lower extremities. No motor deficits in the in face, upper extremities and lower extremities. Normoreflexic in the upper and lower extremities. Normal speech. Toes are down- going bilaterally. Gait is normal without ataxia. PSYCHIATRIC: Cooperative. Good eye contact. Appropriate mood and affect. <Aster Scott - Last Filed: 02/09/17 03:34> - Vital Signs Last Vital Signs Temp Pulse Resp BP Pulse Ox 79 18 114/63 97 02/09/17 01:57 02/09/17 01:57 02/09/17 01:57 02/09/17 01:57 <Bianca Samaniego - Last Filed: 02/10/17 04:24> Medical Decision Making - Medical Decision Making 02/10/17 04:19 states that she placed a crushed tablet in pt's PEG tube and now the PEG is clogged. I unclogged it with tap water flush and suction thru a tumi syringe. Pt was given the Tumi syringe to take home. I prescribed liquid potassium chloride instead of kdur pills. Pt was also prescribed miralax, as he often gets constipated with his PEG feeds. Pt is stable for discharge. He went home with ambulance, as he has muscular dystrophy <Bianca Samaniego - Last Filed: 02/10/17 04:24> *DC/Admit/Observation/Transfer - Attestations Scribe Attestion: 02/09/17 03:35 Documentation prepared by Aster Scott, acting as medical staffing coordinator for Bianca Samaniego MD. <Aster Scott - Last Filed: 02/09/17 03:34> - Discharge Dispostion Admit: No <Bianca Samaniego - Last Filed: 02/10/17 04:24> Diagnosis at time of Disposition: PEG tube malfunction - Discharge Dispostion Disposition: HOME Condition at time of disposition: Improved - Prescriptions Prescriptions: Polyethylene Glycol 3350 [Miralax (For Bowel Prep) -] 17 gm PO DAILY PRN #255 gm PRN Reason: Constipation Potassium Chloride [Potassium Chloride Oral Liquid] 15 ml PO ONCE #600 ml - Patient Instructions Printed Discharge Instructions: DI for Percutaneous Endoscopic Gastrostomy
== END 2017-02-09 02:40 | disposition home or self-care (01) ==
LOC: JER 01:53
DX: K94.23 Gastrostomy malfunction (principal); I50.9 Heart failure, unspecified; I48.91 Unspecified atrial fibrillation; Z79.01 Long term (current) use of anticoagulants; G71.0 Muscular dystrophy
CPT/HCPCS: 99281-25; 99282-25

== ENCOUNTER 2017-02-11 06:02 | Emergency (ER) | payer OTHER, BC ==
[2017-02-11 06:10] VITALS: TEMP 97.5; BMI 24.7
--- NOTE | 2017-02-11 06:16 | PDOC ---
History of Present Illness - General History Source: Patient Exam Limitations: No Limitations - History of Present Illness Initial Comments: 02/11/17 06:30 The patient is a 86 year old male with significant past medical history of muscular dystrophy, afib and CHF who presents to the ED for 1 week of constipation and urinary retention. As per , patient has not had a bowel movement for the past week and also has complaints of abdominal pain. Denies nausea, vomiting, or diarrhea. also reports patient is urinating very minimally for the past several of days and last urinated yesterday afternoon. Denies dysuria, hematuria, urgency, and frequency. Dr. Aster Bennett called in to inform that the patient was admitted from 01/29 - 02/06 for SOB and was found to have aspiration pneumonia, where he has been placed on levaquin 500 for 5 days. She also states patient was given lactulose for constipation since he has been discharged and sent home. The patient denies fever, chills, cough, SOB, chest pain, and palpitations. Allergies: NKDA Social History: No alcohol, tobacco, or drug use reported. Past Surgical History: g-tube, cholecystectomy PCP: Dr. Aster Bennett <Stacie Russo - Last Filed: 02/11/17 06:30> - General History Source: Spouse <Wicho Cole - Last Filed: 02/11/17 19:47> - General Chief Complaint: Urinary Problem Stated Complaint: URINARY PROBLEM Time Seen by Provider: 02/11/17 06:15 Past History <Stacie Russo - Last Filed: 02/11/17 06:30> - Past Medical History Cardiac Disorders: Yes (afib) - Surgical History Abdominal Surgery: Yes (feeding tube) Cholecystectomy: Yes - Psycho/Social/Smoking Cessation Hx Anxiety: No Suicidal Ideation: No Smoking History: Unknown if ever smoked Have you smoked in the past 12 months: No If you are a former smoker, when did you quit?: Information on smoking cessation initiated: No Hx Alcohol Use: No Drug/Substance Use Hx: No Substance Use Type: None <Wicho Cole - Last Filed: 02/11/17 19:47> - Past Medical History Allergies/Adverse Reactions: Allergies Allergy/AdvReac Type Severity Reaction Status Date / Time No Known Allergies Allergy Verified 02/11/17 06:07 Home Medications: Ambulatory Orders Aspirin [ASA -] 81 mg PO DAILY 01/29/17 Digoxin [Lanoxin -] 0.125 mg PO DAILY 01/29/17 Bacitracin - [Bacitracin Topical Ointment -] 1 applic TP BID tube 02/06/17 Furosemide [Lasix -] 40 mg PO DAILY tablet 02/06/17 Levofloxacin [Levaquin] 500 mg PO DAILY #5 tab 02/06/17 Metoprolol Tartrate [Lopressor -] 12.5 mg PO TID #45 tablet 02/06/17 Pantoprazole Suspension [Protonix Packets For Oral Suspension -] 40 mg PEG DAILY #90 packet 02/06/17 Potassium Chloride [Potassium Chloride Oral Liquid] 20 meq PO DAILY #450 ml 01/20 Polyethylene Glycol 3350 [Miralax (For Bowel Prep) -] 17 gm PO DAILY PRN #255 gm 02/09/17 Potassium Chloride [Potassium Chloride Oral Liquid] 15 ml PO ONCE #600 ml Docusate Liquid [Colace Liquid -] 100 mg PO TID #500 ml 02/11/17 Docusate Sodium [Colace -] 100 mg PO DAILY #30 capsule 02/11/17 Review of Systems - Review of Systems Able to Perform ROS?: Yes Comments:: 02/11/17 06:30 CONSTITUTIONAL: Absent: fever, chills, diaphoresis, generalized weakness, malaise, loss of appetite HEENT: Absent: rhinorrhea, nasal congestion, throat pain, throat swelling, difficulty swallowing, mouth swelling, ear pain, eye pain, visual Changes CARDIOVASCULAR: Absent: chest pain, syncope, palpitations, irregular heart rate, lightheadedness , peripheral edema RESPIRATORY: Absent: cough, shortness of breath, dyspnea with exertion, orthopnea, wheezing, stridor, hemoptysis GASTROINTESTINAL: +abdominal pain, constipation Absent: abdominal distension, nausea, vomiting, diarrhea, melena, hematochezia GENITOURINARY: +urinary retention Absent: dysuria, frequency, urgency, hesitancy, hematuria, flank pain, genital pain MUSCULOSKELETAL: Absent: myalgia, arthralgia, joint swelling SKIN: Absent: rash, itching, pallor NEUROLOGIC: Absent: headache, focal weakness or paresthesias, dizziness, unsteady gait, seizure, mental status changes, bladder or bowel incontinence <Stacie Russo - Last Filed: 02/11/17 06:30> *Physical Exam - Vital Signs Last Vital Signs Temp Pulse Resp BP Pulse Ox 97.5 F L 92 H 18 107/72 98 02/11/17 06:07 02/11/17 06:07 02/11/17 06:07 02/11/17 06:07 02/11/17 06:07 - Physical Exam Comments: 02/11/17 06:30 GENERAL: Well developed, well nourished. Awake and alert. No acute distress. HEENT: Normocephalic, atraumatic. PERRLA, EOMI. No conjunctival pallor. Sclera are non- icteric. Moist mucous membranes. Oropharynx is clear. NECK: Supple. Full ROM. No JVD. Carotid pulses 2+ and symmetric, without bruits. No thyromegaly. No lymphadenopathy. CARDIOVASCULAR: Regular rate and rhythm. No murmurs, rubs, or gallops. Distal pulses are 2+ and symmetric. PULMONARY: No evidence of respiratory distress. Lungs clear to auscultation bilaterally. No wheezing, rales or rhonchi. ABDOMINAL: Soft. Suprapubic tenderness. Non-distended. No rebound or guarding. No organomegaly. Normoactive bowel sounds. MUSCULOSKELETAL No bony deformities or tenderness. No CVA tenderness. EXTREMITIES: No cyanosis. No clubbing. No edema. No calf tenderness. SKIN: Warm and dry. Normal capillary refill. No rashes. No jaundice. NEUROLOGICAL: Patient is at neurological baseline as per . <Stacie Russo - Last Filed: 02/11/17 06:30> - Vital Signs Last Vital Signs Temp Pulse Resp BP Pulse Ox 97.5 F L 92 H 18 107/72 98 02/11/17 06:07 02/11/17 06:07 02/11/17 06:07 02/11/17 06:07 02/11/17 06:07 <Wicho Cole - Last Filed: 02/11/17 19:47> Medical Decision Making - Medical Decision Making 02/11/17 19:47 MDr. Kelsey: The scribe's documentation has been prepared under my direction and personally reviewed by me in its entirery. I confirm that the note above accurately reflects all work, treatment, procedures, and medical decision making performed by me. <Wicho Cole - Last Filed: 02/11/17 19:47> *DC/Admit/Observation/Transfer - Attestations Scribe Attestion: 02/11/17 06:31 Documentation prepared by Stacie Russo, acting as medical office technician for Wicho Cole MD/DO. <Stacie Russo - Last Filed: 02/11/17 06:30> - Discharge Dispostion Admit: No <Wicho Cole - Last Filed: 02/11/17 19:47> Diagnosis at time of Disposition: Constipation - Discharge Dispostion Disposition: HOME Condition at time of disposition: Stable - Prescriptions Prescriptions: Docusate Sodium [Colace -] 100 mg PO DAILY #30 capsule Docusate Liquid [Colace Liquid -] 100 mg PO TID #500 ml - Referrals Referrals: Aster Bennett MD [Primary Care Provider] - - Patient Instructions Printed Discharge Instructions: DI for Constipation Additional Instructions: Please take Colace--stool softener--100mg once daily. Please follow-up with urology and your primary care physician within one week. Return to the ED if your symptoms persist, worsen or new symptoms arise.
[2017-02-11 06:27] LABS: URINE APPEARANCE CLEAR; URINE BILIRUBIN NEGATIVE (NEGATIVE); URINE BLOOD NEGATIVE (NEGATIVE); URINE COLOR YELLOW; URINE GLUCOSE (UA) NEGATIVE (NEGATIVE); URINE KETONE NEGATIVE (NEGATIVE); URINE LEUK ESTERASE NEGATIVE (NEGATIVE); URINE NITRITE NEGATIVE (NEGATIVE); URINE PROTEIN NEGATIVE (NEGATIVE); URINE UROBILINOGEN 2.0 E.U/dl E.U./dl (0.2-1.0)
[2017-02-11] MEDS ORDERED: SODIUM PHOSPHATE/NA BIPHOS 133 ML ENEMA PR ONE (06:49)
--- NOTE | 2017-02-11 13:11 | PDOC ---
*Physical Exam - Vital Signs Last Vital Signs Temp Pulse Resp BP Pulse Ox 97.5 F L 92 H 18 107/72 98 02/11/17 06:07 02/11/17 06:07 02/11/17 06:07 02/11/17 06:07 02/11/17 06:07 ED Treatment Course - ADDITIONAL ORDERS Additional order review: Laboratory Results 02/11/17 06:15 Urine Color Yellow Urine Appearance Clear Urine pH 7.0 Ur Specific Winn 1.015 Urine Protein Negative Urine Glucose (UA) Negative Urine Ketones Negative Urine Blood Negative Urine Nitrite Negative Urine Bilirubin Negative Urine Urobilinogen 2.0 e.u/dl Ur Leukocyte Esterase Negative - RADIOLOGY Radiology Studies Ordered: Category Date Time Status KUB (KID UR & BLAD) [RAD] Stat Radiology 02/11/17 09:43 Completed - Medications Given in the ED: ED Medications Discontinued Medications Generic Name Dose Route Start Last Admin Trade Name Freq PRN Reason Stop Dose Admin Sodium Phosphate 133 ml 02/11/17 06:49 02/11/17 06:52 Fleet Adult Rectal Enema - IA 02/11/17 06:50 133 ml ONCE ONE Administration Progress Note - Progress Note Progress Note: The patient was endorsed to me at [address] Ghotra. The patient was pending bowel movement after Fleet enema. The patient continued to have constipation and some rectal pressure. A KUB was performed that showed no obstruction but stool throughout the colon. He was given a soapsuds enema with a bowel movement. The patient is feeling improved. Will discharge home. I have advised the to have the patient follow-up with his primary care physician and return to the ED if his symptoms persist, worsen, or new symptoms arise. *DC/Admit/Observation/Transfer Diagnosis at time of Disposition: Constipation - Discharge Dispostion Disposition: HOME Condition at time of disposition: Stable Admit: No - Referrals Referrals: Aster Bennett MD [Primary Care Provider] - - Patient Instructions Printed Discharge Instructions: DI for Constipation Additional Instructions: Please take Colace--stool softener--100mg once daily. Please follow-up with urology and your primary care physician within one week. Return to the ED if your symptoms persist, worsen or new symptoms arise. - Post Discharge Activity
[2017-02-11 14:45] VITALS: BP 112/80; PULSE 74
== END 2017-02-11 14:46 | disposition home or self-care (01) ==
LOC: JER 06:02
DX: K59.00 Constipation, unspecified (principal); Z93.1 Gastrostomy status; I50.9 Heart failure, unspecified; I48.91 Unspecified atrial fibrillation
CPT/HCPCS: 74000-TC; 81003; 87086; 99283-25

== ENCOUNTER 2017-02-18 12:18 | Inpatient (IN) | payer OTHER, BC ==
[2017-02-18 12:38] VITALS: BMI 23.8
[2017-02-18] MEDS ORDERED: SODIUM CHLORIDE 500 ML IV STA ×2 (13:19→16:17)
[2017-02-18 14:06] LABS: BASOPHIL 0.2 % (0-2.0); EOSINOPHIL 0.8 % (0-4.5); MCH 30.6 pg (25.7-33.7); MCHC 33.2 g/dl (32.0-35.9); NEUTROPHILS 82.3 % (42.8-82.8); PLATELET COUNT 324 K/MM3 (134-434); RDW 17.3 % (11.9-15.9)
[2017-02-18 14:30] LABS: URINE APPEARANCE CLOUDY; URINE BILIRUBIN NEGATIVE (NEGATIVE); URINE COLOR YELLOW; URINE GLUCOSE (UA) NEGATIVE (NEGATIVE); URINE KETONE 1+ (NEGATIVE); URINE NITRITE NEGATIVE (NEGATIVE); URINE UROBILINOGEN 2.0 E.U/dl E.U./dl (0.2-1.0)
--- NOTE | 2017-02-18 14:32 | PDOC ---
History of Present Illness - General Chief Complaint: Constipation Stated Complaint: ABD PAIN Time Seen by Provider: 02/18/17 12:37 History Source: Patient Exam Limitations: No Limitations - History of Present Illness Initial Comments: 02/18/17 14:32 86-year-old male brought in by for evaluation of no bowel movement since 02/11 and mild nausea with complaints of abdominal cramping. As per patient has history of muscular dystrophy with a G-tube in place that she gives feedings through but states patient is only been tolerating 1 can/ day versus the 5 can/day which was recommended by the cement finisher helper. Patient was here in the night and received soapsuds enema which he did move his bowels but states since then patient has been complaining of continual abdominal pain with no movement. Patient denies fever, nausea, vomiting, abdominal distention, or complaints of rectal pressure. Patient is followed by Dr. Aster Bennett and does not see a neurologist. Timing/Duration: getting worse Severity: mild Associated Symptoms: reports: loss of appetite, weakness Past History - Past Medical History Allergies/Adverse Reactions: Allergies Allergy/AdvReac Type Severity Reaction Status Date / Time No Known Allergies Allergy Verified 02/11/17 06:07 Home Medications: Ambulatory Orders Aspirin [ASA -] 81 mg PO DAILY 01/29/17 Digoxin [Lanoxin -] 0.125 mg PO DAILY 01/29/17 Bacitracin - [Bacitracin Topical Ointment -] 1 applic TP BID tube 02/06/17 Furosemide [Lasix -] 40 mg PO DAILY tablet 02/06/17 Metoprolol Tartrate [Lopressor -] 12.5 mg PO TID #45 tablet 02/06/17 Pantoprazole Suspension [Protonix Packets For Oral Suspension -] 40 mg PEG DAILY #90 packet 02/06/17 Potassium Chloride [Potassium Chloride Oral Liquid] 20 meq PO DAILY #450 ml 01/20 Polyethylene Glycol 3350 [Miralax (For Bowel Prep) -] 17 gm PO DAILY PRN #255 gm 02/09/17 Potassium Chloride [Potassium Chloride Oral Liquid] 15 ml PO ONCE #600 ml Docusate Liquid [Colace Liquid -] 100 mg PO TID #500 ml 02/11/17 Cardiac Disorders: Yes (afib) HTN: Yes Other medical history: Musc. Dystrophy - Surgical History Abdominal Surgery: Yes (feeding tube) Cholecystectomy: Yes - Immunization History Immunization Up to Date: Yes - Psycho/Social/Smoking Cessation Hx Anxiety: No Suicidal Ideation: No Smoking History: Former smoker Have you smoked in the past 12 months: No If you are a former smoker, when did you quit?: Information on smoking cessation initiated: No Hx Alcohol Use: No Drug/Substance Use Hx: No Substance Use Type: None Patient Lives Alone: No Lives with/in: spouse/SO Review of Systems - Review of Systems Able to Perform ROS?: Yes Constitutional: Yes: Loss of Appetite, Weakness HEENTM: No: Symptoms Reported Respiratory: No: Symptoms reported Cardiac (ROS): No: Symptoms Reported ABD/GI: Yes: Constipated, Poor Appetite, Abdominal cramping : No: Symptoms Reported Musculoskeletal: No: Symptoms Reported Integumentary: No: Symptoms Reported Neurological: No: Symptoms reported Endocrine: No: Symptoms Reported Hematologic/Lymphatic: No: Symptoms Reported *Physical Exam - Vital Signs Last Vital Signs Temp Pulse Resp BP Pulse Ox 98.8 F 116 H 20 100/78 92 L 02/18/17 12:34 02/18/17 12:34 02/18/17 12:34 02/18/17 12:34 02/18/17 12:34 - Physical Exam General Appearance: Yes: Nourished, Appropriately Dressed. No: Apparent Distress HEENT: positive: EOMI, BRITTANY. negative: Pharynx Normal (dry) Neck: positive: Supple Respiratory/Chest: positive: Rhonchi (scattered selam). negative: Respiratory Distress, Accessory Muscle Use Cardiovascular: positive: Regular Rhythm, Tachycardia. negative: Murmur Gastrointestinal/Abdominal: positive: Soft. negative: Tenderness Musculoskeletal: positive: Normal Inspection Extremity: positive: Normal Capillary Refill, Normal Range of Motion. negative : Pedal Edema Integumentary: positive: Dry, Warm, Pale, Other (stageII breakdown to sacral area) Neurologic: positive: Normal Mood/Affect, Motor Strength 5/5 (moving all extremeties) Heart Score/ECG Review - ECG Impressions Tachycardia: Afib w/rapid Vent rate (rate 124) ED Treatment Course - LABORATORY CBC & Chemistry Diagram: 02/19/17 06:43 02/19/17 06:43 - ADDITIONAL ORDERS Additional order review: 02/18/17 13:55 RBC 4.33 MCV 92.0 MCHC 33.2 RDW 17.3 H MPV 8.0 Neutrophils % 82.3 Lymphocytes % 10.0 Monocytes % 6.7 Eosinophils % 0.8 Basophils % 0.2 - RADIOLOGY Radiology Studies Ordered: Category Date Time Status CHEST X-RAY PORTABLE* [RAD] Stat Radiology 02/18/17 13:18 Taken KUB (KID UR & BLAD) [RAD] Stat Radiology 02/18/17 13:18 Taken - Medications Given in the ED: ED Medications Discontinued Medications Generic Name Dose Route Start Last Admin Trade Name Freq PRN Reason Stop Dose Admin Sodium Chloride 500 mls @ 500 mls/hr 02/18/17 13:19 02/18/17 13:53 Normal Saline - IV 02/18/17 14:18 500 mls/hr ASDIR STA Administration Medical Decision Making - Medical Decision Making 02/18/17 14:05 Patient brought in for evaluation of constipation for the past week associated with decreased aeration and increased weakness. Patient was here about a week ago was given a soapsuds enema was sent home after patient produced a bowel movement here. states since then patient has been refusing the 5 cans of feeding he received and only tolerating one can. Patient concerning for dehydration/starvation including obstruction. Patient ordered for labs, fluids, chest x-ray, KUB 02/18/17 16:08 Laboratory Tests 02/18/17 02/18/17 02/18/17 13:55 13:55 13:55 WBC 10.0 D Hgb 13.2 Hct 39.8 Plt Count 324 Neutrophils % 82.3 Sodium 144 Potassium 4.7 D Chloride 105 Carbon Dioxide 31 Anion Gap 8 BUN 22 H D Creatinine < 0.2 L Creat Clearance w eGFR > 60 Random Glucose 84 Calcium 8.1 L Total Bilirubin 0.4 D AST 26 D ALT 25 D Lipase 141 Urine Protein 1+ H Urine Ketones 1+ H Urine Blood 3+ H Urine Nitrite Negative Ur Leukocyte Esterase 3+ H Urine RBC 846 Urine WBC 64 02/18/17 16:09 Patient satting at approximately 93% with 3 L. Patient also still tachycardic. Patient complaining of pain at the decubiti sites. Patient ordered for rectal temp to rule out fever and also ordered for IV Tylenol secondary to pain. If patient is febrile lactic acid includes septic workup will be initiated. ABG will be obtained. 02/18/17 16:[address] Linder and will admit to service. I also recommended that she consider a nutritional consult secondary to patient's condition and decreased appetite. 02/18/17 16:12 Chest x-ray shows resolving right basilar infiltrate/atelectasis. Left perihilar infiltrate is now noted. KUB shows fecal matter without obstruction. 02/18/17 17:10 Laboratory Tests 02/18/17 16:55 Creatine Kinase Pending Troponin I Pending Patient did not take his meds this morning including digoxin. Patient will be given his digoxin 02/18/17 18:03 Dig level pending. Patient's heart rate now 104. Troponin is pending. Patient awaiting bed placement. *DC/Admit/Observation/Transfer Diagnosis at time of Disposition: Decrease in appetite Atrial fibrillation Qualifiers: Atrial fibrillation type: chronic Qualified Code(s): I48.2 - Chronic atrial fibrillation Constipation Qualifiers: Constipation type: other constipation type Qualified Code(s): K59.09 - Other constipation Pneumonia Qualifiers: Pneumonia type: due to unspecified organism Laterality: left - Discharge Dispostion Admit: Yes - Referrals
[2017-02-18 14:36] LABS: URINE BLOOD 3+ (NEGATIVE); URINE LEUK ESTERASE 3+ (NEGATIVE); URINE PROTEIN 1+ (NEGATIVE)
[2017-02-18 14:40] LABS: ALBUMIN 2.4 g/dl (3.4-5.0); ANION GAP 8 (8-16); CALCIUM 8.1 mg/dL (8.5-10.1); CO2 31 mmol/L (21-32); GLUCOSE,RANDOM 84 mg/dL (74-106); URINE BACTERIA RARE /hpf (NONE SEEN); URINE MUCUS RARE; URINE RBC 846 /hpf (0-3); URINE WBC 64 /hpf (3-5); YEAST FEW
[2017-02-18 14:43] LABS: ALK PHOS 67 U/L (45-117); BILIRUBIN,TOTAL 0.4 mg/dL (0.2-1.0); COCKROFT - GAULT 212; CREATININE < 0.2 mg/dL (0.7-1.3); SGPT/ALT 25 U/L (12-78); TOT PROT 6.5 g/dl (6.4-8.2)
[2017-02-18 14:46] LABS: SGOT/AST 26 U/L (15-37)
[2017-02-18] MEDS ORDERED: LEVOFLOXACIN 750 MG IVPB 150 ML IVPB ONE ×3 (14:46→14:56)
[2017-02-18] MEDS ORDERED: PIPERACILLIN/TAZOB 3.375 GM 3.375 GM in DEXTROSE 5%-WATER - 50 ML IVPB ONE (14:46)
[2017-02-18] MEDS ORDERED: PIPERACILLIN/TAZOB 3.375 GM 50 ML IVPB ONE (14:55)
[2017-02-18] MEDS ORDERED: ACETAMINOPHEN INJECTION 100 ML IVPB ONE (15:54)
[2017-02-18] MEDS ORDERED: ACETAMINOPHEN 1000 MG/100 ML VIAL (NON FORMULARY) IVPB ONE (16:08)
[2017-02-18 16:36] LABS: ARTERIAL BLD GAS O2 SATURATION 97.5 % (90-98.9); ARTERIAL BLOOD GAS BASE EXCESS 3.8 meq/l (-2-2); ARTERIAL BLOOD GAS HCO3 28.1 meq/L (22-26)
[2017-02-18 16:37] LABS: ALLENS TEST POSITIVE; ART PUNCT SITE RIGHT RADIAL; LPM/O2% 50; METHEMOGLOBIN 0.5 % (0.4-1.5); PT. ON O2? YES
[2017-02-18 16:38] LABS: ARTERIAL BLOOD GAS pH 7.43 (7.35-7.45); TYPE OF O2 V/M
--- NOTE | 2017-02-18 17:02 | EKG ---
Test Reason : Blood Pressure : / mmHG Vent. Rate : 133 BPM Atrial Rate : 138 BPM P-R Int : 000 ms QRS Dur : 070 ms QT Int : 282 ms P-R-T Axes : 000 -57 038 degrees QTc Int : 419 ms ATRIAL FIBRILLATION WITH RAPID VENTRICULAR RESPONSE LEFT AXIS DEVIATION LOW VOLTAGE QRS T WAVE ABNORMALITY, CONSIDER ANTERIOR ISCHEMIA ABNORMAL ECG WHEN COMPARED WITH ECG OF 29-JAN-2017 16:02, VENT. RATE HAS INCREASED BY 53 BPM Confirmed by YONI CORDON MD ([id number]) on 02/18/2017 5:01:52 PM Referred By: Confirmed By:YONI CORDON MD
[2017-02-18] MEDS ORDERED: DIGOXIN 0.125 MG TABLET (FP) GT ONE (17:09)
[2017-02-18] MEDS ORDERED: DIGOXIN 0.125 MG TABLET (FP) ONE (17:11)
[2017-02-18 20:51] LABS: TROPONIN I < 0.02 ng/ml (0.00-0.05)
--- NOTE | 2017-02-18 21:31 | HP ---
Admitting History and Physical - Primary Care Physician PCP: Ayleen Gordillo - Admission Chief Complaint: constipation, failure to thrive History of Present Illness: 86-year-old male brought in by for evaluation of no bowel movement since 02/11 and mild nausea with complaints of abdominal cramping. As per patient has history of muscular dystrophy with a G-tube in place that she gives feedings through but states patient is only been tolerating 1 can/ day versus the 5 can/day which was recommended by the software test developer. Patient was here in the night and received soapsuds enema which he did move his bowels but states since then patient has been complaining of continual abdominal pain with no movement. Patient denies fever, nausea, vomiting, abdominal distention, or complaints of rectal pressure. Patient is followed by Dr. Aster Bennett and does not see a neurologist. per pt also has cough with white yellow sputum for one week; he was admitted here recently had dysphagia had PEG placed; does not eat po but has occasional water and ice chips but he aspirates frequently and chokes (aware not to have any po). had Burgos inserted last admission for inability to urinate; still in now. no pain no hematuria. hx taken from his , at bedside in ER; pt has difficulty speaking and articulating words for many years, he got gradually worse; was diagnosed with muscular dystrophy 20 years ago. History Source: Patient, Family Member Limitations to Obtaining History: No Limitations - Past Medical History Cardiovascular: Yes: AFIB, Mitral Insufficiency, Pulmonary Hypertension Gastrointestinal: Yes: Other (remote h/o " colitis" followed by Dr Benavides) Hepatobiliary: Yes: Cholelithiasis (s/p lap choly) Musculoskeletal: Yes: Other (Muscular Dystrophy) - Past Surgical History Past Surgical History: Yes: Cataract Removal (bilateral), Cholecystectomy ( laparoscopic) - Smoking History Smoking history: Former smoker Have you smoked in the past 12 months: No If you are a former smoker, when did you quit?: - Alcohol/Substance Use Hx Alcohol Use: No History of Substance Use: reports: None - Social History Usual Living Arrangement: Yes: With Spouse ADL: Family Assistance 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 History of Recent Travel: No Home Medications - Allergies Allergies/Adverse Reactions: Allergies Allergy/AdvReac Type Severity Reaction Status Date / Time No Known Allergies Allergy Verified 02/11/17 06:07 - Home Medications Home Medications: Ambulatory Orders Aspirin [ASA -] 81 mg PO DAILY 01/29/17 Digoxin [Lanoxin -] 0.125 mg PO DAILY 01/29/17 Bacitracin - [Bacitracin Topical Ointment -] 1 applic TP BID tube 02/06/17 Furosemide [Lasix -] 40 mg PO DAILY tablet 02/06/17 Metoprolol Tartrate [Lopressor -] 12.5 mg PO TID #45 tablet 02/06/17 Pantoprazole Suspension [Protonix Packets For Oral Suspension -] 40 mg PEG DAILY #90 packet 02/06/17 Potassium Chloride [Potassium Chloride Oral Liquid] 20 meq PO DAILY #450 ml 01/20 Polyethylene Glycol 3350 [Miralax (For Bowel Prep) -] 17 gm PO DAILY PRN #255 gm 02/09/17 Potassium Chloride [Potassium Chloride Oral Liquid] 15 ml PO ONCE #600 ml Docusate Liquid [Colace Liquid -] 100 mg PO TID #500 ml 02/11/17 Family Disease History - Family Disease History Family History: Unremarkable (no muscular distrophy in his family) Review of Systems - Review of Systems Constitutional: denies: Chills, Fever Eyes: denies: Blurred Vision, Double Vision HENT: reports: Difficult Swallowing. denies: Ear Pain Neck: denies: Stiffness, Tenderness Cardiovascular: denies: Chest Pain, Shortness of Breath Respiratory: reports: Cough, SOB, Other (sputum production) Gastrointestinal: reports: Abdominal Pain, Bloating, Constipation, Dysphagia. denies: Diarrhea, Indigestion, Melena, Nausea, Rectal Bleeding, Vomiting, Vomiting Blood Genitourinary: denies: Dysuria, Flank Pain Musculoskeletal: reports: Muscle Weakness. denies: Back Pain, Joint Swelling Integumentary: denies: Bruising, Eczema, Rash Neurological: reports: Other (bed bound). denies: Change in LOC, Seizure, Syncope Hematology/Lymphatic: denies: Easily Bruised, Excessive Bleeding Psychiatric: denies: Altered Sleep Pattern Physical Examination Vital Signs: Vital Signs Temperature 99 F 02/18/17 16:18 Pulse Rate 108 H 02/18/17 19:48 Respiratory Rate 25 H 02/18/17 19:48 Blood Pressure 96/69 02/18/17 19:48 O2 Sat by Pulse Oximetry (%) 96 02/18/17 19:48 Constitutional: Yes: Anxious, Other (in bed) Eyes: Yes: Conjunctiva Clear HENT: Yes: Atraumatic Neck: Yes: Supple Cardiovascular: Yes: Regular Rate and Rhythm Respiratory: Yes: CTA Bilaterally Gastrointestinal: Yes: Soft. No: Distention, Tenderness Renal/: Yes: Burgos Present. No: Hematuria Musculoskeletal: Yes: Muscle Weakness (general). No: Joint Stiffness, Joint Swelling Extremities: No: Cold, Cool, Cyanosis Edema: No Peripheral Pulses WNL: Yes Integumentary: No: Rash, Venous Stasis Changes Neurological: Yes: Alert, Oriented, Other (general weakness, bed bound) Psychiatric: Yes: Alert, Oriented. No: Agitated, Suicidal Ideation Imaging - Results Chest X-ray: Report Reviewed Other: Report Reviewed Assessment/Plan 86-year-old male brought in by for evaluation of no bowel movement since 02/11 and mild nausea with complaints of abdominal cramping. KUB no obstruction but colon full of stools. CXR c/w PNA and UA c/w UTI admit for further w/u and treatment GI eval; stools softeners IV ATB neuro and PT rehab eval d/ pt and falls decubs DVT and gastric PFX also dw pt and and staff d/w pt's PCP dr Milton Bennett prognosis guarded
[2017-02-18] MEDS ORDERED: DOCUSATE PO SCH (22:00)
[2017-02-18] MEDS ORDERED: METOPROLOL TARTRATE 25 MG TABLET (FP) ONE (22:08)
[2017-02-18] MEDS ORDERED: DOCUSATE SODIUM 100 MG CAPSULE (FP) PO ONE (22:08)
[2017-02-18] MEDS: METOPROLOL TARTRATE 25 MG TABLET (FP) PO SCH (22:15)
[2017-02-18] MEDS: HEPARIN NA (PORCINE) 5,000 UNITS/ML 1ML VIAL SQ SCH (22:15)
[2017-02-18] MEDS: BACITRACIN 30 GM TUBE TOPICAL OINTMENT TP SCH (23:05)
[2017-02-19] MEDS: METOPROLOL TARTRATE 25 MG TABLET (FP) PO SCH ×3 (06:15→22:35)
[2017-02-19] MEDS: DOCUSATE NA 100 MG/10 ML UNIT-DOSE CUPS PO SCH ×3 (06:15→22:54)
[2017-02-19] MEDS ORDERED: METOPROLOL TARTRATE 25 MG TABLET (FP) ONE (06:58)
[2017-02-19 07:13] LABS: BASOPHIL 0.4 % (0-2.0); EOSINOPHIL 1.3 % (0-4.5); MCH 30.7 pg (25.7-33.7); MCHC 33.2 g/dl (32.0-35.9); MEAN CELL VOLUME 92.4 fl (80-96); MEAN PLT VOLUME 7.5 fl (7.5-11.1); NEUTROPHILS 76.5 % (42.8-82.8); PLATELET COUNT 310 K/MM3 (134-434); RDW 17.3 % (11.9-15.9)
[2017-02-19 07:41] LABS: ALBUMIN 2.3 g/dl (3.4-5.0); ANION GAP 7 (8-16); CALCIUM 7.7 mg/dL (8.5-10.1); CO2 30 mmol/L (21-32); COCKROFT - GAULT 212; CREATININE < 0.2 mg/dL (0.7-1.3); GLUCOSE,RANDOM 70 mg/dL (74-106); SGOT/AST 20 U/L (15-37); SGPT/ALT 21 U/L (12-78)
[2017-02-19 07:43] LABS: ALK PHOS 58 U/L (45-117); BILIRUBIN,TOTAL 0.6 mg/dL (0.2-1.0); TOT PROT 6.1 g/dl (6.4-8.2)
[2017-02-19] MEDS ORDERED: PANTOPRAZOLE SOD 40 MG SUSPENSION PACKET PEG SCH (10:00)
--- NOTE | 2017-02-19 10:43 | PN ---
Progress Note, Physician Chief Complaint: in bed nad no new c/o at bedside; mentioned to me that she noticed at home that pt had a skin opening in his sacral area, will order topical treatment - Current Medication List Current Medications: Active Medications Aspirin (Asa -) 81 mg PO DAILY [facility] Bacitracin (Bacitracin -) 1 applic TP BID [facility] Last Admin: 02/18/17 23:05 Dose: 1 applic Digoxin (Lanoxin -) 0.125 mg PO DAILY [facility] Docusate Sodium (Colace Liquid -) 100 mg PO TID [facility] Last Admin: 02/19/17 06:15 Dose: 100 mg Furosemide (Lasix -) 40 mg PO DAILY [facility] Heparin Sodium (Porcine) (Heparin -) 5,000 unit SQ BID [facility] Last Admin: 02/18/17 22:15 Dose: 5,000 unit Levofloxacin (Levaquin 500 Mg Premixed Ivpb -) 100 mls @ 100 mls/hr IVPB DAILY [facility] Metoprolol Tartrate (Lopressor -) 12.5 mg PO TID [facility] Last Admin: 02/19/17 06:15 Dose: 12.5 mg Pantoprazole Sodium (Protonix Packets For Oral Suspension -) 40 mg PEG DAILY [facility] Polyethylene Glycol (Miralax (For Bowel Prep) -) 17 gm PO DAILY [facility] - Objective Vital Signs: Vital Signs Temperature 97.1 F L 02/19/17 07:01 Pulse Rate 107 H 02/19/17 07:01 Respiratory Rate 25 H 02/19/17 07:01 Blood Pressure 111/78 02/19/17 07:01 O2 Sat by Pulse Oximetry (%) 96 02/19/17 07:01 Constitutional: Yes: No Distress, Calm Eyes: Yes: Conjunctiva Clear HENT: Yes: Atraumatic Neck: Yes: Supple Cardiovascular: Yes: Regular Rate and Rhythm Respiratory: Yes: CTA Bilaterally Gastrointestinal: Yes: Soft. No: Distention, Tenderness Genitourinary: No: CVA Tenderness - Left, CVA Tenderness - Right Musculoskeletal: No: Joint Stiffness, Joint Swelling Extremities: No: Cold, Cool, Cyanosis Edema: No Peripheral Pulses WNL: Yes Integumentary: No: Rash, Venous Stasis Changes Neurological: Yes: WNL, Alert, Oriented ...Motor Strength: WNL Psychiatric: Yes: WNL, Alert, Oriented. No: Agitated Labs: CBC, BMP 02/19/17 06:43 02/19/17 06:43 - ....Imaging Other: Report Reviewed Assessment/Plan 86-year-old male brought in by for evaluation of no bowel movement since 02/11 and mild nausea with complaints of abdominal cramping. KUB no obstruction but colon full of stools. CXR c/w PNA and UA c/w UTI admitedt for further w/u and treatment GI eval; stools softeners IV ATB, ivF occupational therapy aide eval pending neuro and PT rehab eval sacral decubs - turn in bed q 1-2 h, d/w pt and and staff d/w pt and falls decubs DVT and gastric PFX also dw pt and and staff d/w pt's PCP dr Milton Bennett prognosis guarded
[2017-02-19] MEDS: DIGOXIN 0.125 MG TABLET (FP) PO SCH (10:50)
[2017-02-19] MEDS: FUROSEMIDE 40 MG TABLET (FP) PO SCH (10:50)
[2017-02-19] MEDS: POLYETHYLENE GLYCOL 3350 255 GM BTL PO SCH (10:50)
[2017-02-19] MEDS: ASPIRIN 81 MG CHEWABLE TABLETS PO SCH (10:50)
[2017-02-19] MEDS: LEVOFLOXACIN 500 MG IVPB 100 ML IVPB SCH (10:50)
[2017-02-19] MEDS ORDERED: LACTULOSE 20 GM/30 ML UDC (FOR ORAL USE ONLY) PO PRN (11:38)
[2017-02-19] MEDS: HEPARIN NA (PORCINE) 5,000 UNITS/ML 1ML VIAL SQ SCH ×2 (11:40→22:34)
[2017-02-19] MEDS ORDERED: HEPARIN NA (PORCINE) 5,000 UNITS/ML 1ML VIAL ONE (11:45)
[2017-02-19] MEDS ORDERED: BACITRACIN 0.9 GM PACKET ONE (11:45)
--- NOTE | 2017-02-19 11:48 | EKG ---
Test Reason : Blood Pressure : / mmHG Vent. Rate : 124 BPM Atrial Rate : 113 BPM P-R Int : 000 ms QRS Dur : 070 ms QT Int : 284 ms P-R-T Axes : 000 -66 045 degrees QTc Int : 408 ms ATRIAL FIBRILLATION WITH RAPID VENTRICULAR RESPONSE WITH PREMATURE VENTRICULAR OR ABERRANTLY CONDUCTED COMPLEXES LEFT AXIS DEVIATION PULMONARY DISEASE PATTERN INFERIOR INFARCT , AGE UNDETERMINED ABNORMAL ECG WHEN COMPARED WITH ECG OF 18-FEB-2017 14:19, NO SIGNIFICANT CHANGE WAS FOUND Confirmed by POOJA SPEAR MD ([id number]) on 02/19/2017 11:48:24 AM Referred By: Confirmed By:POOJA SPEAR MD
[2017-02-19] MEDS: BACITRACIN 30 GM TUBE TOPICAL OINTMENT TP SCH ×2 (12:20→22:38)
[2017-02-19] MEDS: SODIUM CHLORIDE 1,000 ML IV SCH (12:40)
--- NOTE | 2017-02-19 15:30 | CON.GI ---
Consult Consult Specialty:: GI Referred by:: Dr. Ayleen Gordillo Reason for Consultation:: Constipation - History of Present Illness Chief Complaint: gave CC: "he hasn't had a BM since the and has been having problems urinating" History of Present Illness: 86M with h/o muscular dystrophy woh underwent PEG placement 02/03/[address] Morel given worsening dysphagia and aspiration. Admitted now for eval of fecal and urinary retention. There was also mention that he has not been tolerating his feeds. His clarified that he does tolerate the feeds but has not wanted more that 2-3 cans. There has been no vomiting. AXR performed today reveals fecal retention in the rectum and retained PO contrast as well. he has been complaining of rectal pain at home. - History Source History Provided By: Patient, Family Member - Past Medical History Cardio/Vascular: Yes: AFIB, Mitral Insufficiency, Pulmonary Hypertension Gastrointestinal: Yes: Other (remote h/o " colitis" followed by Dr Benavides) Hepatobiliary: Yes: Cholelithiasis (s/p lap choly) Musculoskeletal: Yes: Other (Muscular Dystrophy) - Past Surgical History Past Surgical History: Yes: Cataract Removal (bilateral), Cholecystectomy ( laparoscopic) - Alcohol/Substance Use Hx Alcohol Use: No History of Substance Use: reports: None - Smoking History Smoking history: Former smoker Have you smoked in the past 12 months: No If you are a former smoker, when did you quit?: - Social History Usual Living Arrangement: With Spouse ADL: Family Assistance 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 came to [place] age 11) History of Recent Travel: No Home Medications - Allergies Allergies/Adverse Reactions: Allergies Allergy/AdvReac Type Severity Reaction Status Date / Time No Known Allergies Allergy Verified 02/11/17 06:07 - Home Medications Home Medications: Ambulatory Orders Aspirin [ASA -] 81 mg PO DAILY 01/29/17 Digoxin [Lanoxin -] 0.125 mg PO DAILY 01/29/17 Bacitracin - [Bacitracin Topical Ointment -] 1 applic TP BID tube 02/06/17 Furosemide [Lasix -] 40 mg PO DAILY tablet 02/06/17 Metoprolol Tartrate [Lopressor -] 12.5 mg PO TID #45 tablet 02/06/17 Pantoprazole Suspension [Protonix Packets For Oral Suspension -] 40 mg PEG DAILY #90 packet 02/06/17 Potassium Chloride [Potassium Chloride Oral Liquid] 20 meq PO DAILY #450 ml 01/20 Polyethylene Glycol 3350 [Miralax (For Bowel Prep) -] 17 gm PO DAILY PRN #255 gm 02/09/17 Potassium Chloride [Potassium Chloride Oral Liquid] 15 ml PO ONCE #600 ml Docusate Liquid [Colace Liquid -] 100 mg PO TID #500 ml 02/11/17 Family Disease History - Family Disease History Other Family History: Non-Contribuatory Review of Systems - Review of Systems Constitutional: reports: Weakness. denies: Chills Cardiovascular: denies: Chest Pain Respiratory: reports: Cough Gastrointestinal: reports: Constipation. denies: Abdominal Pain, Diarrhea, Rectal Bleeding, Vomiting Physical Exam-GI Vital Signs: Vital Signs Temperature 97.1 F L 02/19/17 07:01 Pulse Rate 96 H 02/19/17 13:45 Respiratory Rate 19 02/19/17 13:45 Blood Pressure 102/92 02/19/17 13:45 O2 Sat by Pulse Oximetry (%) 96 02/19/17 13:45 Constitutional: Yes: Calm Eyes: No: Sclera Icterus Neck: Yes: Supple Cardiovascular: Yes: Regular Rate and Rhythm Respiratory: Yes: Rhonchi (bilateral lower lung aviles) Gastrointestinal Inspection: Yes: Other (G tube in LUQ. site without induration /erythema, rotating freely). No: Scars ...Auscultate: Yes: Normoactive Bowel Sounds ...Palpate: No: Tenderness ...Percussion: No: Tympanitic ...Rectal Exam: Yes: Other (Massive rectal fecal impaction with soft and hard light brown stool. Manual disimpaction performed and mineral oil enema administered) Edema: No Neurological: Yes: Alert Labs: CBC, BMP 02/19/17 06:43 02/19/17 06:43 Hepatic Panel Total Bilirubin 0.6 mg/dL (0.2-1.0) D 02/19/17 06:43 AST 20 U/L (15-37) D 02/19/17 06:43 ALT 21 U/L (12-78) 02/19/17 06:43 Alkaline Phosphatase 58 U/L (45-117) 02/19/17 06:43 Albumin 2.3 g/dl (3.4-5.0) L 02/19/17 06:43 Imaging - Results X-ray: Report Reviewed, Image Reviewed Problem List - Problems (1) Constipation Assessment/Plan: With fecal impaction s/p manual disimpaction Golyteley lavage through G-Tube 2 liters over 4 hours Mineral oil enemas daily for 3 days Aspiration precautions At home should be on daily miralax 17g BID Protonix granules should not be given through the G-Tube as it can cause clogging of the G0-Tube. Use Liquid Ranitidine for GI prophylaxis Code(s): K59.00 - CONSTIPATION, UNSPECIFIED Qualifiers: Constipation type: other constipation type Qualified Code(s): K59.09 - Other constipation
[2017-02-19] MEDS ORDERED: PEG3350/SOD SULF,BICARB,CL/KCL 4,000 ML SOLN.RECON PO ONE (15:34)
[2017-02-20] MEDS: ALBUTEROL SO4 0.083% IH SOL 2.5 MG/3 ML VIAL.NEB. NEB PRN ×3 (00:30→08:40)
[2017-02-20] MEDS: SODIUM CHLORIDE 1,000 ML IV SCH (04:00)
[2017-02-20] MEDS: METOPROLOL TARTRATE 25 MG TABLET (FP) PO SCH ×2 (05:27→14:20)
[2017-02-20] MEDS: DOCUSATE NA 100 MG/10 ML UNIT-DOSE CUPS PO SCH ×3 (05:27→23:32)
[2017-02-20 08:23] LABS: ALBUMIN 2.3 g/dl (3.4-5.0); ALK PHOS 64 U/L (45-117); ANION GAP 19 (8-16); BILIRUBIN,TOTAL 0.8 mg/dL (0.2-1.0); CALCIUM 7.8 mg/dL (8.5-10.1); CO2 22 mmol/L (21-32); COCKROFT - GAULT 212; CREATININE < 0.2 mg/dL (0.7-1.3); SGOT/AST 25 U/L (15-37); SGPT/ALT 22 U/L (12-78); THYROID STIMULATING HORMONE 4.42 uIU/ml (0.358-3.74); TOT PROT 6.1 g/dl (6.4-8.2)
[2017-02-20] MEDS ORDERED: TAMSULOSIN HCL 0.4 MG CAP.ER.24H (FP) PO SCH (08:30)
[2017-02-20 08:35] LABS: GLUCOSE,RANDOM 36 mg/dL (74-106)
[2017-02-20] MEDS ORDERED: PT OWN MED DRAWER 7, Y5N ONE ×2 (09:12→13:52)
[2017-02-20] MEDS ORDERED: DEXTROSE 50%-WATER 50 ML VIAL IVPUSH ONE (09:15)
[2017-02-20] MEDS: HEPARIN NA (PORCINE) 5,000 UNITS/ML 1ML VIAL SQ SCH ×2 (09:24→23:32)
[2017-02-20] MEDS: LEVOFLOXACIN 500 MG IVPB 100 ML IVPB SCH (09:24)
[2017-02-20] MEDS: DIGOXIN 0.125 MG TABLET (FP) PO SCH (09:24)
[2017-02-20] MEDS: RANITIDINE HCL 150 MG/10 ML UNIT-DOSE CUP GT SCH (09:25)
[2017-02-20] MEDS: POLYETHYLENE GLYCOL 3350 255 GM BTL PO SCH (09:25)
[2017-02-20] MEDS: ASPIRIN 81 MG CHEWABLE TABLETS PO SCH (09:25)
[2017-02-20] MEDS: FUROSEMIDE 40 MG TABLET (FP) PO SCH (09:25)
[2017-02-20] MEDS: BACITRACIN 30 GM TUBE TOPICAL OINTMENT TP SCH (09:25)
--- NOTE | 2017-02-20 09:26 | CON.NEURO ---
Consult - History of Present Illness Chief Complaint: dec BM , dystrophy History of Present Illness: 86-year-old male for evaluation of no bowel movement since 02/11 -abdominal cramping. As per patient has history of muscular dystrophy (unknown type, she is not by bedside) with a G-tube in place that she gives feedings through but states patient is only been tolerating 1 can/ day versus the 5 can/day which was recommended by the network operations lead. he was admitted here recently had dysphagia had PEG placed; does not eat po but has occasional water and ice chips but he aspirates frequently and chokes ( aware not to have any po). had Burgos inserted last admission for inability to urinate; still in now. no pain no hematuria. pt - difficulty speaking and articulating words for many years, he got gradually worse; was diagnosed with muscular dystrophy 20 years ago (does not have active neuro?). This AM he denies swallowing issue, WEBB or focal weakness (despite some of these issues documented) - History Source History Provided By: Patient, Medical Record Limitations to Obtaining History: Physical Impairment - Past Medical History Cardio/Vascular: Yes: AFIB, Mitral Insufficiency, Pulmonary Hypertension Gastrointestinal: Yes: Other (remote h/o " colitis" followed by Dr Benavides) Hepatobiliary: Yes: Cholelithiasis (s/p lap choly) Musculoskeletal: Yes: Other (Muscular Dystrophy) - Past Surgical History Past Surgical History: Yes: Cataract Removal (bilateral), Cholecystectomy ( laparoscopic) - Alcohol/Substance Use Hx Alcohol Use: No History of Substance Use: reports: None - Smoking History Smoking history: Former smoker Have you smoked in the past 12 months: No If you are a former smoker, when did you quit?: - Social History Usual Living Arrangement: With Spouse ADL: Family Assistance 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 History of Recent Travel: No Home Medications - Allergies Allergies/Adverse Reactions: Allergies Allergy/AdvReac Type Severity Reaction Status Date / Time No Known Allergies Allergy Verified 02/11/17 06:07 - Home Medications Home Medications: Ambulatory Orders Aspirin [ASA -] 81 mg PO DAILY 01/29/17 Digoxin [Lanoxin -] 0.125 mg PO DAILY 01/29/17 Bacitracin - [Bacitracin Topical Ointment -] 1 applic TP BID tube 02/06/17 Furosemide [Lasix -] 40 mg PO DAILY tablet 02/06/17 Metoprolol Tartrate [Lopressor -] 12.5 mg PO TID #45 tablet 02/06/17 Pantoprazole Suspension [Protonix Packets For Oral Suspension -] 40 mg PEG DAILY #90 packet 02/06/17 Potassium Chloride [Potassium Chloride Oral Liquid] 20 meq PO DAILY #450 ml 01/20 Polyethylene Glycol 3350 [Miralax (For Bowel Prep) -] 17 gm PO DAILY PRN #255 gm 02/09/17 Potassium Chloride [Potassium Chloride Oral Liquid] 15 ml PO ONCE #600 ml Docusate Liquid [Colace Liquid -] 100 mg PO TID #500 ml 02/11/17 Family Disease History - Family Disease History Other Family History: Non-Contribuatory Physical Exam-Neuro Vital Signs: Vital Signs Temperature 97.8 F 02/20/17 08:52 Pulse Rate 108 H 02/20/17 08:52 Respiratory Rate 24 02/20/17 08:52 Blood Pressure 112/66 02/20/17 08:52 O2 Sat by Pulse Oximetry (%) 92 L 02/19/17 21:00 Constitutional: Yes: Calm Neck: Yes: Supple Cardiovascular: Yes: Regular Rate and Rhythm Respiratory: Yes: Accessory Muscle Use, Rales Labs: CBC, BMP 02/20/17 06:10 - Neuro Exam Level Of Consciousness: Yes: Alert (awake, hyphonic, dysarthric , breathy voice , transverse smile, slight ptosis,weakness of neck flexion 4/5, weakness distally UE and LE 4/5, no percussion myotania , refllexes UE 3+ LE absnet and pes cavus, plantars down ) NIH Stroke Scale - Total Score NIH Stroke Scale Score: 0 Problem List - Problems (1) Constipation Code(s): K59.00 - CONSTIPATION, UNSPECIFIED Qualifiers: Constipation type: other constipation type Qualified Code(s): K59.09 - Other constipation (2) Decrease in appetite Code(s): R63.0 - ANOREXIA (3) Muscular dystrophy Code(s): G71.0 - MUSCULAR DYSTROPHY (4) PEG tube malfunction Code(s): K94.23 - GASTROSTOMY MALFUNCTION (5) Swallowing dysfunction Code(s): R13.10 - DYSPHAGIA, UNSPECIFIED Assessment/Plan 86-year-old male for evaluation of no bowel movement since 02/11 -abdominal cramping. As per patient has history of muscular dystrophy (unknown type, she is not by bedside) with a G-tube in place that she gives feedings through but states patient is only been tolerating 1 can/ day versus the 5 can/day which was recommended by the network operations lead. he was admitted here recently had dysphagia had PEG placed; does not eat po but has occasional water and ice chips but he aspirates frequently and chokes ( aware not to have any po). had Burgos inserted last admission for inability to urinate; still in now. no pain no hematuria. pt - difficulty speaking and articulating words for many years, he got gradually worse; was diagnosed with muscular dystrophy 20 years ago (does not have active neuro?). evidence of progressive dystrophy (weakness of pharyngeal muscles, distal exe and ?resp musculature) -- ? type as no prior records FU Vital capacity , and appears to be pulm congestion (hold fluids, may need diuresis--nurse to call PMD) . unfortunately no rx to reverse weakness etc , though steroids may help in acute setting for resp distress. check CPk/TSH, avoid statins/ muscle toxic agents GI to treat impaction, which may be main cause of constipation, reduced po intake, frequent hypoglycemia FU speeach/swallow nutrition to see best feeding regimen + UTi--- ABX -levoquin +RF -unclear significance AFIB -- dig /ASA, fu dig level Dr Coffman [phone]
[2017-02-20] MEDS ORDERED: DEXTROSE 50%-WATER 50 ML DISP.SYRIN IVPUSH PRN (09:30)
--- NOTE | 2017-02-20 09:58 | PN ---
Progress Note, Physician Chief Complaint: had low GLU this am 35 on BMP (feeds were held but he was on IVF) - received IV D10 GLU went up to 100s; BG check q4h ordered and D5 added to IVF currently pt awake alert NAD VSS afebrile sounds congested unable to bring up secretions; d/w nurse to suction and asked for pulmonary consult on IV antibiotics for PNA; nebs qid prn feeds were held yesterday b/o nausea and constipation, found to have fecal impaction, desimpacted last evening by GI; now in am started on jevity via PEG 1 can q4h - per this was his home dose ( present is at his bedside) generally weak, unable to urinate; Burgos in; called neurology and also to see pt - d/w pt and - Current Medication List Current Medications: Active Medications Albuterol Sulfate (Ventolin 0.083% Nebulizer Soln -) 1 amp NEB Q4H PRN PRN Reason: SHORT OF BREATH/WHEEZING Last Admin: 02/20/17 08:40 Dose: 1 amp Aspirin (Asa -) 81 mg PO DAILY [facility] Last Admin: 02/20/17 09:25 Dose: 81 mg Bacitracin (Bacitracin -) 1 applic TP BID [facility] Last Admin: 02/20/17 09:25 Dose: 1 applic Dextrose (D50w (Syringe) -) 50 ml IVPUSH PRN PRN PRN Reason: HYPOGLYCEMIA Digoxin (Lanoxin -) 0.125 mg PO DAILY [facility] Last Admin: 02/20/17 09:24 Dose: 0.125 mg Docusate Sodium (Colace Liquid -) 100 mg PO TID [facility] Last Admin: 02/20/17 05:27 Dose: 100 mg Furosemide (Lasix -) 40 mg PO DAILY [facility] Last Admin: 02/20/17 09:25 Dose: 40 mg Heparin Sodium (Porcine) (Heparin -) 5,000 unit SQ BID [facility] Last Admin: 02/20/17 09:24 Dose: 5,000 unit Levofloxacin (Levaquin 500 Mg Premixed Ivpb -) 100 mls @ 100 mls/hr IVPB DAILY [facility] Last Admin: 02/20/17 09:24 Dose: 100 mls/hr Lactulose (Cephulac (Oral Use)) 20 gm PO TID PRN PRN Reason: CONSTIPATION Metoprolol Tartrate (Lopressor -) 12.5 mg PO TID [facility] Last Admin: 02/20/17 05:27 Dose: 12.5 mg Polyethylene Glycol (Miralax (For Bowel Prep) -) 17 gm PO DAILY [facility] Last Admin: 02/20/17 09:25 Dose: 17 gm Ranitidine HCl (Zantac Oral Solution -) 150 mg GT DAILY [facility] Last Admin: 02/20/17 09:25 Dose: 150 mg Tamsulosin HCl (Flomax -) 0.4 mg PO DAILY@0830 [facility] Last Admin: 02/20/17 09:25 Dose: 0.4 mg - Objective Vital Signs: Vital Signs Temperature 97.8 F 02/20/17 08:52 Pulse Rate 108 H 02/20/17 09:24 Respiratory Rate 24 02/20/17 08:52 Blood Pressure 112/66 02/20/17 08:52 O2 Sat by Pulse Oximetry (%) 92 L 02/19/17 21:00 Constitutional: Yes: No Distress, Calm Eyes: Yes: Conjunctiva Clear HENT: Yes: Atraumatic Neck: Yes: Supple Cardiovascular: No: Regular Rate and Rhythm Respiratory: Yes: Rales (bilateral) Gastrointestinal: Yes: Soft. No: Distention, Tenderness Musculoskeletal: No: Joint Stiffness, Joint Swelling Extremities: No: Cold, Cool, Cyanosis Edema: No Peripheral Pulses WNL: Yes Integumentary: No: Rash, Venous Stasis Changes Neurological: Yes: Alert ...Motor Strength: WNL (generally weak) Psychiatric: Yes: Alert. No: Agitated Labs: CBC, BMP 02/20/17 06:10 - ....Imaging Chest X-ray: Report Reviewed (ordered new CXR) Other: Report Reviewed Assessment/Plan 86-year-old male ashd Afib muscular dystrophy dysphagia s/p recent PEG placement admitted with no bowel movement since 02/11 and nausea and abdominal cramping. CXR c/w PNA and UA c/w UTI more congested: nebs, pulmonary eval, repeat CXR ordered; HOB and chest PT d/w staff s/p fecal desimpaction per GI; stools softeners ordered; GI ordered Golytely IV ATB, ivF hypoglycemia: resolved; started on po jevity, s/p IV D10, f/u BGM frequently f/u labs sacral decubs - turn in bed q 1-2 h, d/w pt and and staff d/w pt and falls decubs DVT and gastric PFX also dw pt and and staff d/w pt's PCP dr Milton Bennett prognosis guarded
[2017-02-20 11:47] LABS: MCH 30.2 pg (25.7-33.7); MCHC 32.3 g/dl (32.0-35.9); MEAN CELL VOLUME 93.7 fl (80-96); MEAN PLT VOLUME 8.2 fl (7.5-11.1); PLATELET COUNT 367 K/MM3 (134-434); RDW 18.5 % (11.9-15.9); WHITE BLOOD COUNT 9.1 K/mm3 (4.0-10.0)
[2017-02-20] MEDS ORDERED: ALBUTEROL SO4 2.5/IPRATROPIUM 0.5 INH SOL 3 ML VIAL.NEB. NEB PRN (12:06)
--- NOTE | 2017-02-20 12:20 | CONSULT ---
Consultation: REQUESTING PROVIDER: CONSULT REQUEST: We have been asked to medically evaluate this patient for ( pulmonology). HISTORY OF PRESENT ILLNESS: 86 y/o M with significant past medical h/o afib, Pulmonary HTN, musculary dystrophy, diastolic CHF. Who was recently discharged from hospital with diagnosis of acute on chronic diastolic chf. Now patient has been admitted for fecal impaction and uti. Patient states that he didn't have cough, sob, fever and chills after discharge from hospital. Patient is on home oxygen, doesn't know whats his usual saturation is. Patient has poor cough reflex Patient take ice chips from mouth rest every thing is given through peg tube. Last admission show infiltrates in cxr but they are resolving in current cxr. Patient is afebrile, states swelling has decreased in b/l lower limbs. 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 REVIEW OF SYSTEMS: CONSTITUTIONAL: Absent: fever, chills, diaphoresis, HEENT: Absent: rhinorrhea, nasal congestion, throat pain, CARDIOVASCULAR: present irregular heartrate Absent: chest pain, syncope, lightheadedness, peripheral edema decreased since before RESPIRATORY: Absent: cough, shortness of breath, fever, chills. GENITOURINARY: Absent: dysuria, frequency, patient is cathetrized PHYSICAL EXAMINATION Vital Signs - 24 hr 02/19/17 02/19/17 02/19/17 13:45 14:00 15:20 Temperature 98.3 F 98.3 F Pulse Rate 119 H 119 H Pulse Rate [ 96 H Apical] Respiratory 19 22 22 Rate Blood Pressure 123/81 123/81 Blood Pressure 102/92 [Left Arm] O2 Sat by Pulse 96 96 Oximetry (%) 02/19/17 02/19/17 02/20/17 21:00 21:30 02:00 Temperature 98.2 F 98.0 F Pulse Rate 81 102 H Pulse Rate [ Apical] Respiratory 22 22 22 Rate Blood Pressure 100/52 103/60 Blood Pressure [Left Arm] O2 Sat by Pulse 92 L Oximetry (%) 02/20/17 02/20/17 02/20/17 05:49 08:52 09:24 Temperature 98.1 F 97.8 F Pulse Rate 106 H 108 H 108 H Pulse Rate [ Apical] Respiratory 22 24 Rate Blood Pressure 106/51 112/66 Blood Pressure [Left Arm] O2 Sat by Pulse Oximetry (%) 02/20/17 02/20/17 11:32 11:50 Temperature Pulse Rate 101 H Pulse Rate [ Apical] Respiratory 24 Rate Blood Pressure Blood Pressure [Left Arm] O2 Sat by Pulse 90 L 90 L Oximetry (%) GENERAL: Awake, alert, HEAD: Normal with no signs of trauma. EARS, NOSE, THROAT: . dry mucous membranes. NECK: no JVD, no lymphadenopathy LUNGS: Breath sounds equal, clear to auscultation bilaterally. No wheezes, . decreased air entry could be due to poor inspiratory effort abdomen: peg left upper quadrant, no erythema, soft, no guarding HEART: s1s2 normal ABDOMEN: Soft, nontender, bowel sounds +, no guarding, UPPER EXTREMITIES: 2+ pulses irrregular , warm, well-perfused. No cyanosis. LOWER EXTREMITIES: , warm, . No calf tenderness. peripheral edema +, Laboratory Results - last 24 hr 02/19/17 02/20/17 02/20/17 09:45 06:10 06:10 WBC 9.1 D RBC 4.38 Hgb 13.2 Hct 41.0 MCV 93.7 MCHC 32.3 RDW 18.5 H Plt Count 367 MPV 8.2 Sodium 147 H Potassium 3.2 L D Chloride 106 Carbon Dioxide 22 D Anion Gap 19 H BUN 22 H Creatinine < 0.2 L Creat Clearance w eGFR > 60 Plasma Glucose POC Glucometer Random Glucose 36 L* D Calcium 7.8 L Total Bilirubin 0.8 D AST 25 D ALT 22 Alkaline Phosphatase 64 Total Protein 6.1 L Albumin 2.3 L Vitamin B12 TSH 4.42 H D Rheumatoid Arth Biomark 245.4 H 02/20/17 02/20/17 02/20/17 08:36 08:46 08:57 WBC RBC Hgb Hct MCV MCHC RDW Plt Count MPV Sodium Potassium Chloride Carbon Dioxide Anion Gap BUN Creatinine Creat Clearance w eGFR Plasma Glucose POC Glucometer 46 68 103 Random Glucose Calcium Total Bilirubin AST ALT Alkaline Phosphatase Total Protein Albumin Vitamin B12 TSH Rheumatoid Arth Biomark 02/20/17 02/20/17 02/20/17 10:45 10:45 11:56 WBC RBC Hgb Hct MCV MCHC RDW Plt Count MPV Sodium Potassium Chloride Carbon Dioxide Anion Gap BUN Creatinine Creat Clearance w eGFR Plasma Glucose 129 H POC Glucometer 133 Random Glucose Calcium Total Bilirubin AST ALT Alkaline Phosphatase Total Protein Albumin Vitamin B12 802 TSH Rheumatoid Arth Biomark Active Medications Generic Name Dose Route Start Last Admin Trade Name Freq PRN Reason Stop Dose Admin Albuterol/Ipratropium 1 amp 02/20/17 12:06 Duoneb - NEB Q6H PRN SHORTNESS OF BREATH Aspirin 81 mg 02/19/17 10:00 02/20/17 09:25 Asa - PO 81 mg DAILY [facility] Administration Bacitracin 1 applic 02/18/17 22:00 02/20/17 09:25 Bacitracin - TP 1 applic BID [facility] Administration Dextrose 50 ml 02/20/17 09:30 D50w (Syringe) - IVPUSH PRN PRN HYPOGLYCEMIA Digoxin 0.125 mg 02/19/17 10:00 02/20/17 09:24 Lanoxin - PO 0.125 mg DAILY [facility] Administration Docusate Sodium 100 mg 02/18/17 22:20 02/20/17 05:27 Colace Liquid - PO 100 mg TID [facility] Administration Furosemide 40 mg 02/19/17 10:00 02/20/17 09:25 Lasix - PO 40 mg DAILY [facility] Administration Heparin Sodium (Porcine) 5,000 unit 02/18/17 22:00 02/20/17 09:24 Heparin - SQ 5,000 unit BID [facility] Administration Levofloxacin 100 mls @ 100 mls/hr 02/19/17 10:00 02/20/17 09:24 Levaquin 500 Mg Premixed Ivpb - IVPB 100 mls/hr DAILY [facility] Administration Lactulose 20 gm 02/19/17 11:38 Cephulac (Oral Use) PO TID PRN CONSTIPATION Metoprolol Tartrate 12.5 mg 02/18/17 22:00 02/20/17 05:27 Lopressor - PO 12.5 mg TID [facility] Administration Polyethylene Glycol 17 gm 02/19/17 10:00 02/20/17 09:25 Miralax (For Bowel Prep) - PO 17 gm DAILY [facility] Administration Ranitidine HCl 150 mg 02/20/17 10:00 02/20/17 09:25 Zantac Oral Solution - GT 150 mg DAILY [facility] Administration Tamsulosin HCl 0.4 mg 02/20/17 08:30 02/20/17 09:25 Flomax - PO 0.4 mg DAILY@0830 [facility] Administration ASSESSMENT/PLAN: afib chronic diastolic chf pulmonary HTN mitral regurgitation UTI musculary dystrophy dysphagia fecal impaction hypokalemia Plan keep head end elevated take aspiration precaution oxygen to keep spo2 > 88 nebulizer prn rate control incentive spirometry correct electrolytes don't suspect pneumonia. infiltrates are resolving on cxr, patient is afebrile, wbc is normal, neutrophil normal, In last admission unable to get vital capacity and peak flow. will get abg to check if patient retains pco2. Since his last admission patient bicarb has improved ( probably due to renal compensation). So will get ABG to check if patient has chronic pco2 retention. Dispo: We will continue to follow the patient. Thank you for this consultative opportunity. Visit type - Emergency Visit Emergency Visit: Yes ED Registration Date: 02/18/17 Care time: The patient presented to the Emergency Department on the above date and was hospitalized for further evaluation of their emergent condition. - New Patient This patient is new to me today: Yes Date on this admission: 02/20/17 - Critical Care Critical Care patient: No
[2017-02-20] MEDS ORDERED: PEG3350/SOD SULF,BICARB,CL/KCL 4,000 ML SOLN.RECON PO ONE (14:02)
--- NOTE | 2017-02-20 14:06 | PN ---
GI Progress Note Subjective: Had BM yesterday and loose BM today No abdominal pain - Objective Vital Signs: Vital Signs Temperature 97.8 F 02/20/17 08:52 Pulse Rate 101 H 02/20/17 11:50 Respiratory Rate 24 02/20/17 11:32 Blood Pressure 112/66 02/20/17 08:52 O2 Sat by Pulse Oximetry (%) 90 L 02/20/17 11:50 Constitutional: Calm Eyes: No: Sclera Icterus Cardiovascular: Yes: Regular Rate and Rhythm Respiratory: Yes: Rhonchi Gastrointestinal Inspection: No: Distention ...Auscultate: Yes: Normoactive Bowel Sounds ...Palpate: No: Tenderness Edema: No Labs: CBC, BMP 02/20/17 06:10 02/20/17 06:10 Laboratory Tests 02/20/17 06:10 TSH 4.42 H D Problem List - Problems (1) Fecal impaction Assessment/Plan: Finish slow golytely lavage today 2L over 6 hrs. When finished resume MiraLAX 17g BID via G-Tube Aspiration precautions Replete potassium, check magnesium TSH high. ? if thyroid supplementation needs adjustment Code(s): K56.41 - FECAL IMPACTION
[2017-02-20] MEDS ORDERED: POTASSIUM CHLORIDE ORAL LIQUID 20 MEQ/15 ML GT ONE (14:07)
[2017-02-20 14:17] LABS: ARTERIAL BLD GAS O2 SATURATION 92.9 % (90-98.9); ARTERIAL BLOOD GAS BASE EXCESS 1.6 meq/l (-2-2); ARTERIAL BLOOD GAS HCO3 25.6 meq/L (22-26); ARTERIAL BLOOD GAS PO2 63.8 mmHg (68-100)
[2017-02-20 14:18] LABS: ALLENS TEST POSITIVE; ART PUNCT SITE RIGHT RADIAL; LPM/O2% 4; PT. ON O2? YES; TYPE OF O2 N/C
[2017-02-20 14:19] LABS: ARTERIAL BLOOD GAS pH 7.42 (7.35-7.45)
--- NOTE | 2017-02-20 14:48 | PN ---
Teaching Attending Note Name of Resident: Lizandro Perez ATTENDING PHYSICIAN STATEMENT I saw and evaluated the patient. I reviewed the resident's note and discussed the case with the resident. I agree with the resident's findings and plan as documented. SUBJECTIVE: 86, M, known to me from multiple previous admissions. AFib, Pulmonary HTN, carries the diagnosis of muscular dystrophy, and diastolic CHF. Patient was recently discharged from [facility] after being treated for acute on chronic diastolic CHF and possible PNA. The patient had 2 ER visits after his discharge and is now readmitted for fecal impaction and possible UTI. On the last admission the patient was unable to perform adequate manuvers to assess his vital capacity and NIF. CXR: improving infiltrates on the right / LLL opacity/atelectasis Intake & Output 02/17/17 02/18/17 02/19/17 02/20/17 23:59 23:59 23:59 23:59 Intake Total 1200 500 Output Total 1500 400 Balance -300 100 Weight 130 lb 130 lb Last Vital Signs Temp Pulse Resp BP Pulse Ox 97.4 F L 100 H 18 109/56 90 L 02/20/17 14:00 02/20/17 14:00 02/20/17 14:00 02/20/17 14:00 02/20/17 11:50 Active Medications Albuterol/Ipratropium (Duoneb -) 1 amp NEB Q6H PRN PRN Reason: SHORTNESS OF BREATH Aspirin (Asa -) 81 mg PO DAILY [facility] Last Admin: 02/20/17 09:25 Dose: 81 mg Bacitracin (Bacitracin -) 1 applic TP BID [facility] Last Admin: 02/20/17 09:25 Dose: 1 applic Dextrose (D50w (Syringe) -) 50 ml IVPUSH PRN PRN PRN Reason: HYPOGLYCEMIA Digoxin (Lanoxin -) 0.125 mg PO DAILY [facility] Last Admin: 02/20/17 09:24 Dose: 0.125 mg Docusate Sodium (Colace Liquid -) 100 mg PO TID [facility] Last Admin: 02/20/17 14:19 Dose: 100 mg Furosemide (Lasix -) 40 mg PO DAILY [facility] Last Admin: 02/20/17 09:25 Dose: 40 mg Heparin Sodium (Porcine) (Heparin -) 5,000 unit SQ BID [facility] Last Admin: 02/20/17 09:24 Dose: 5,000 unit Levofloxacin (Levaquin 500 Mg Premixed Ivpb -) 100 mls @ 100 mls/hr IVPB DAILY [facility] Last Admin: 02/20/17 09:24 Dose: 100 mls/hr Metoprolol Tartrate (Lopressor -) 12.5 mg PO TID [facility] Last Admin: 02/20/17 14:20 Dose: 12.5 mg Potassium Chloride (Potassium Chloride Oral Liquid) 40 meq GT ONCE ONE Stop: 02/20/17 14:08 Ranitidine HCl (Zantac Oral Solution -) 150 mg GT DAILY [facility] Last Admin: 02/20/17 09:25 Dose: 150 mg Tamsulosin HCl (Flomax -) 0.4 mg PO DAILY@0830 [facility] Last Admin: 02/20/17 09:25 Dose: 0.4 mg GENERAL: Awake, alert, weak appearing HEAD: Normal with no signs of trauma. EARS, NOSE, THROAT: . dry mucous membranes. NECK: no JVD, no lymphadenopathy LUNGS: Scattered basilar rhonchi, No wheezes HEART: s1s2 normal ABDOMEN: Soft, nontender, (+) BS, (+) PEG UPPER EXTREMITIES: 2+ pulses irrregular , warm, well-perfused. No cyanosis. LOWER EXTREMITIES: , warm, . No calf tenderness. peripheral edema +, Laboratory Results - last 24 hr 02/19/17 02/20/17 02/20/17 09:45 06:10 06:10 WBC 9.1 D RBC 4.38 Hgb 13.2 Hct 41.0 MCV 93.7 MCHC 32.3 RDW 18.5 H Plt Count 367 MPV 8.2 Sodium 147 H Potassium 3.2 L D Chloride 106 Carbon Dioxide 22 D Anion Gap 19 H BUN 22 H Creatinine < 0.2 L Creat Clearance w eGFR > 60 Plasma Glucose POC Glucometer Random Glucose 36 L* D Calcium 7.8 L Total Bilirubin 0.8 D AST 25 D ALT 22 Alkaline Phosphatase 64 Total Protein 6.1 L Albumin 2.3 L Vitamin B12 TSH 4.42 H D Rheumatoid Arth Biomark 245.4 H 02/20/17 02/20/17 02/20/17 08:36 08:46 08:57 WBC RBC Hgb Hct MCV MCHC RDW Plt Count MPV Sodium Potassium Chloride Carbon Dioxide Anion Gap BUN Creatinine Creat Clearance w eGFR Plasma Glucose POC Glucometer 46 68 103 Random Glucose Calcium Total Bilirubin AST ALT Alkaline Phosphatase Total Protein Albumin Vitamin B12 TSH Rheumatoid Arth Biomark 02/20/17 02/20/17 02/20/17 10:45 10:45 11:56 WBC RBC Hgb Hct MCV MCHC RDW Plt Count MPV Sodium Potassium Chloride Carbon Dioxide Anion Gap BUN Creatinine Creat Clearance w eGFR Plasma Glucose 129 H POC Glucometer 133 Random Glucose Calcium Total Bilirubin AST ALT Alkaline Phosphatase Total Protein Albumin Vitamin B12 802 TSH Rheumatoid Arth Biomark ASSESSMENT/PLAN: Do not suspect active respiratory tract infection AFib Chronic diastolic CHF Pulmonary HTN Mitral regurgitation UTI Musculary dystrophy Dysphagia Fecal impaction Hypokalemia Plan HOB elevation Aspiration precautions O2 to maintain saturation between 88% to 92% BD TX Chest PT Incentive Spirometry If respiratory condition appears worse -> check ABG Will follow Thank you. Dr Dean
--- NOTE | 2017-02-20 18:03 | CON.GU ---
Consult - History of Present Illness History of Present Illness: 86 yo male with MD admitted with constipation, nausea. Recently in ER and ugalde placed for urinary retention. According to , no prior history. Currently on Flomax - Past Medical History Cardio/Vascular: Yes: AFIB, Mitral Insufficiency, Pulmonary Hypertension Gastrointestinal: Yes: Other (remote h/o " colitis" followed by Dr Benavides) Hepatobiliary: Yes: Cholelithiasis (s/p lap choly) Musculoskeletal: Yes: Other (Muscular Dystrophy) - Past Surgical History Past Surgical History: Yes: Cataract Removal (bilateral), Cholecystectomy ( laparoscopic) - Alcohol/Substance Use Hx Alcohol Use: No History of Substance Use: reports: None - Smoking History Smoking history: Former smoker Have you smoked in the past 12 months: No If you are a former smoker, when did you quit?: - Social History Usual Living Arrangement: With Spouse ADL: Family Assistance 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 History of Recent Travel: No Home Medications - Allergies Allergies/Adverse Reactions: Allergies Allergy/AdvReac Type Severity Reaction Status Date / Time No Known Allergies Allergy Verified 02/11/17 06:07 - Home Medications Home Medications: Ambulatory Orders Aspirin [ASA -] 81 mg PO DAILY 01/29/17 Digoxin [Lanoxin -] 0.125 mg PO DAILY 01/29/17 Bacitracin - [Bacitracin Topical Ointment -] 1 applic TP BID tube 02/06/17 Furosemide [Lasix -] 40 mg PO DAILY tablet 02/06/17 Metoprolol Tartrate [Lopressor -] 12.5 mg PO TID #45 tablet 02/06/17 Pantoprazole Suspension [Protonix Packets For Oral Suspension -] 40 mg PEG DAILY #90 packet 02/06/17 Potassium Chloride [Potassium Chloride Oral Liquid] 20 meq PO DAILY #450 ml 01/20 Polyethylene Glycol 3350 [Miralax (For Bowel Prep) -] 17 gm PO DAILY PRN #255 gm 02/09/17 Potassium Chloride [Potassium Chloride Oral Liquid] 15 ml PO ONCE #600 ml Docusate Liquid [Colace Liquid -] 100 mg PO TID #500 ml 02/11/17 Family Disease History - Family Disease History Other Family History: Non-Contribuatory Physical Exam- Vital Signs: Vital Signs Temperature 97.4 F L 02/20/17 14:00 Pulse Rate 100 H 02/20/17 14:00 Respiratory Rate 18 02/20/17 14:00 Blood Pressure 109/56 02/20/17 14:00 O2 Sat by Pulse Oximetry (%) 96 02/20/17 14:00 Renal/: Yes: [place] Present Labs: CBC, BMP 02/20/17 06:10 02/20/17 06:10 Problem List - Problems (1) Urinary retention Assessment/Plan: agree with flomax, doesnt want pt to have a trial of void until he is "stronger" Code(s): R33.9 - RETENTION OF URINE, UNSPECIFIED
[2017-02-20] MEDS ORDERED: VANCOMYCIN 1 GRAM (PRE-DOCKED) 250 ML IVPB ONE (18:54)
[2017-02-20 20:32] LABS: CALCIUM 7.8 mg/dL (8.5-10.1); COCKROFT - GAULT 106.46; CREATININE 0.4 mg/dL (0.7-1.3)
[2017-02-20 20:34] LABS: TROPONIN I 0.02 ng/ml (0.00-0.05)
[2017-02-20 21:43] LABS: ALLENS TEST POSITIVE; ART PUNCT SITE RIGHT RADIAL; ARTERIAL BLD GAS O2 SATURATION 94.2 % (90-98.9); ARTERIAL BLOOD GAS BASE EXCESS -4.8 meq/l (-2-2); ARTERIAL BLOOD GAS pH 6.99 (7.35-7.45); LPM/O2% 100%; PT. ON O2? YES; TYPE OF O2 AMBU
[2017-02-20 22:22] LABS: ALBUMIN 1.8 g/dl (3.4-5.0); ANION GAP 8 (8-16); BILIRUBIN,TOTAL 0.2 mg/dL (0.2-1.0); CO2 27 mmol/L (21-32); COCKROFT - GAULT 191.6; CREATININE 0.2 mg/dL (0.7-1.3); GLUCOSE,RANDOM 196 mg/dL (74-106); SGOT/AST 19 U/L (15-37); SGPT/ALT 19 U/L (12-78); TOT PROT 4.7 g/dl (6.4-8.2)
[2017-02-20 22:24] LABS: ALK PHOS 58 U/L (45-117); TROPONIN I 0.02 ng/ml (0.00-0.05)
--- NOTE | 2017-02-20 22:28 | RAPID ---
Physical Examination Vital Signs: Vital Signs Temperature 99 F 02/20/17 18:38 Pulse Rate 104 H 02/20/17 20:09 Respiratory Rate 14 02/20/17 20:09 Blood Pressure 75/34 02/20/17 20:09 O2 Sat by Pulse Oximetry (%) 88 % 02/20/17 20:11 Findings/Remarks: Patient found hypotensive systolic 70's and unresponsive. O2 sat 80's. in afib with RVR 110 BPM which is baseline rate. Baseline BP 105 systolic. 1+ femoral pulse. minimally responsive to painful stimuli Constitutional: Yes: Cachectic, Pallor Eyes: Yes: PERRL. No: Sclera Icterus HENT: No: Atraumatic Neck: Yes: Supple Cardiovascular: Yes: Tachycardia, Pulse Irregular. No: JVD Respiratory: Yes: Other (bibasilar crackles) Gastrointestinal: Yes: Soft, Hypoactive Bowel Sounds. No: Distention, Palpable Mass, Pulsatile Mass Extremities: Yes: Cool, Pallor Neurological: Yes: Lethargy, Unresponsive Labs: CBC, BMP 02/20/17 06:10 Rapid Response - Rapid Response Assessment: Acute Hypertension with unresponsiveness -full code; contacted, asked about central line, unable to make decision -BP 74/34, tachycardia, faint fem pulse, apneic -patient bagged by respiratory, then placed on venturi mask with O2 sat 96%; Stat ABG shows severe respiratory acidosis pH 6.9 Co2 134 -patient intubated, stat portable x ray ordered -Simultaneously leg raise maneuver performed and 1L of NS bolus started through large bore IV, repeat BP 53/30, fem pulse faint, still tachy 105 -STAT EKG no ACS no change from prior -Patient transferred to ICU, connected to vent resp rate 20. Placed on Dopamine @10 -family arrived, discussed patients condition, family agreed to place central line. Explained to family that patient is a very high risk for becoming chronically vent dependant/will likely need trach. Also discussed code status. Family verbalizes understanding, decides DNR for patient. -R IJ central line placed under US guidance and x ray confirmed placement. Outcome: CXR shows proper placement of ET tube, no change in lung aviles from this morning. BP improved to 92/47 (baseline) on dopamine @10 central R IJ line placed unde US guidance, confirmed with x ray
--- NOTE | 2017-02-20 22:49 | CONSULT ---
Consult Consult Specialty:: Pulm/ Critical Care Referred by:: Duy Reason for Consultation:: respiratory failure/ shock - History of Present Illness Chief Complaint: respiratory failure /shock History of Present Illness: 86 y/o man with h/o muscular dystrophy, pulmonary hypertension, Afib and CHF, recently d/cd after admit for acute on chronic CHF and possible PNA, who presented to [facility] with constipation. He is s/p recent PEG earlier this month for worsening dysphagia and aspiration and has been getting feeds via PEG but has been tolerating fewer cans than were recommended by florist's decorator. He also had ugalde placed for urinary retention during last admission, which is still in place. He was given enema with successful BM however abd pain persisted. Of note , also reported productive cough with white sputum x 1 week and reports that he does take ice chips and water by mouth with frequent aspiration. In the ED, AXR sowed fecal retention and retained PO contrast. GI was consulted and he was manually disimpacted and received golyteley as well as mineral oil enemas while on the floor. He was started on levaquin for possible UTI. Pt was transferred from 6th to 4th floor for telemetry given mild hypotension, vanco was added to abx regimen. Shortly after arrival on 4th floor pt was noted to be febrile to 101.8 and hypotensive 50s/30s-40s and became unresponsive with agonal respirations, sats as low as 80s. He was bagged with improvement in sat s but did not regain consciousness and was intubated, given 1L IVF and started on dopamine for hypotension and transported to the ICU. Pt arrived in the ICU intubated on dopamine. Hospitalist team spoke to family and plan for central line placement. Spoke to Dr. Gordillo who agreed with central line placement and addition of zosyn to regimen for possible infectious component, as well as continued levaquin/ vanco. Metoprolol and digoxin being held in setting of hypotension. Will avoid futher fluid given pts known CHF and pulmonary hypertension. Active Medications Albuterol/Ipratropium (Duoneb -) 1 amp NEB Q6H PRN PRN Reason: SHORTNESS OF BREATH Last Admin: 02/20/17 18:01 Dose: 1 amp Aspirin (Asa -) 81 mg PO DAILY [facility] Last Admin: 02/20/17 09:25 Dose: 81 mg Bacitracin (Bacitracin -) 1 applic TP BID [facility] Last Admin: 02/21/17 02:32 Dose: 1 applic Dextrose (D50w (Syringe) -) 50 ml IVPUSH PRN PRN PRN Reason: HYPOGLYCEMIA Docusate Sodium (Colace Liquid -) 100 mg PO TID [facility] Last Admin: 02/20/17 23:32 Dose: Not Given Heparin Sodium (Porcine) (Heparin -) 5,000 unit SQ BID [facility] Last Admin: 02/20/17 23:32 Dose: 5,000 unit Levofloxacin (Levaquin 500 Mg Premixed Ivpb -) 100 mls @ 100 mls/hr IVPB DAILY [facility] Last Admin: 02/20/17 09:24 Dose: 100 mls/hr Phenylephrine HCl 20,000 mcg/ (Sodium Chloride) 250 mls @ 75 mls/hr IVPB ASDIR [facility]; 100 MCG/MIN PRN Reason: Protocol Last Admin: 02/21/17 00:30 Dose: 75 mls/hr Norepinephrine Bitartrate 8, (000 mcg/ Dextrose) 500 mls @ 18.75 mls/hr IV TITR [facility]; 5 MCG/MIN PRN Reason: Protocol Last Admin: 02/21/17 02:19 Dose: 18.75 mls/hr Methylprednisolone Sodium Succinate (Solu-Medrol -) 40 mg IVPB BID [facility] Last Admin: 02/20/17 23:33 Dose: 40 mg Midazolam HCl (Versed -) 2 mg IVPUSH ONCE ONE Stop: 02/21/17 05:33 Piperacillin Sod/Tazobactam Sod (Zosyn 3.375gm Ivpb (Pre-Docked)) 3.375 gm IVPB Q8H-IV [facility] PRN Reason: Protocol Piperacillin Sod/Tazobactam Sod (Zosyn 3.375gm Ivpb (Pre-Docked)) 3.375 gm IVPB Q8H [facility] PRN Reason: Protocol Stop: 02/21/17 07:16 Last Admin: 02/20/17 23:30 Dose: 3.375 gm Ranitidine HCl (Zantac Oral Solution -) 150 mg GT DAILY [facility] Last Admin: 02/20/17 09:25 Dose: 150 mg - History Source History Provided By: Medical Record Limitations to Obtaining History: Intubated - Past Medical History Cardio/Vascular: Yes: AFIB, CHF, Mitral Insufficiency, Pulmonary Hypertension Gastrointestinal: Yes: Constipation, Other (remote h/o " colitis" followed by Dr Benavides) Hepatobiliary: Yes: Cholelithiasis (s/p lap choly) Renal/: Yes: Other Musculoskeletal: Yes: Other (Muscular Dystrophy) - Past Surgical History Past Surgical History: Yes: Cataract Removal (bilateral), Cholecystectomy ( laparoscopic) - Alcohol/Substance Use Hx Alcohol Use: No History of Substance Use: reports: None - Smoking History Smoking history: Former smoker Have you smoked in the past 12 months: No If you are a former smoker, when did you quit?: - Social History Usual Living Arrangement: With Spouse ADL: Family Assistance 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 History of Recent Travel: No Home Medications - Allergies Allergies/Adverse Reactions: Allergies Allergy/AdvReac Type Severity Reaction Status Date / Time No Known Allergies Allergy Verified 02/11/17 06:07 - Home Medications Home Medications: Ambulatory Orders Aspirin [ASA -] 81 mg PO DAILY 01/29/17 Digoxin [Lanoxin -] 0.125 mg PO DAILY 01/29/17 Bacitracin - [Bacitracin Topical Ointment -] 1 applic TP BID tube 02/06/17 Furosemide [Lasix -] 40 mg PO DAILY tablet 02/06/17 Metoprolol Tartrate [Lopressor -] 12.5 mg PO TID #45 tablet 02/06/17 Pantoprazole Suspension [Protonix Packets For Oral Suspension -] 40 mg PEG DAILY #90 packet 02/06/17 Potassium Chloride [Potassium Chloride Oral Liquid] 20 meq PO DAILY #450 ml 01/20 Polyethylene Glycol 3350 [Miralax (For Bowel Prep) -] 17 gm PO DAILY PRN #255 gm 02/09/17 Potassium Chloride [Potassium Chloride Oral Liquid] 15 ml PO ONCE #600 ml Docusate Liquid [Colace Liquid -] 100 mg PO TID #500 ml 02/11/17 Family Disease History - Family Disease History Family History: Unable to Obtain Other Family History: Non-Contribuatory Review of Systems Unable to obtain ROS, reason: intubated Physical Exam Vital Signs: Vital Signs Temperature 99 F 02/20/17 18:38 Pulse Rate 132 H 02/20/17 20:09 Respiratory Rate 18 02/20/17 20:09 Blood Pressure 108/61 05/18/17 20:09 O2 Sat by Pulse Oximetry (%) 96 02/20/17 20:11 Eyes: Yes: PERRL Cardiovascular: Yes: Tachycardia, Pulse Irregular, S1, S2 Respiratory: Yes: CTA Bilaterally, Rales (R base) Gastrointestinal: Yes: Normal Bowel Sounds, Soft. No: Distention, Tenderness Musculoskeletal: Yes: Other (muscular dystrophy) Edema: No Peripheral Pulses WNL: Yes Integumentary: Yes: Pressure Ulcer Neurological: Yes: Other (minimally responsive) Labs: CBC, BMP 02/20/17 06:10 Imaging - Results Chest X-ray: Report Reviewed, Image Reviewed Problem List - Problems (1) Atrial fibrillation Code(s): I48.91 - UNSPECIFIED ATRIAL FIBRILLATION Qualifiers: Atrial fibrillation type: chronic Qualified Code(s): I48.2 - Chronic atrial fibrillation (2) Fecal impaction Code(s): K56.41 - FECAL IMPACTION (3) Swallowing dysfunction Code(s): R13.10 - DYSPHAGIA, UNSPECIFIED (4) Urinary retention Code(s): R33.9 - RETENTION OF URINE, UNSPECIFIED (5) CHF exacerbation Code(s): I50.9 - HEART FAILURE, UNSPECIFIED (6) Dysphagia Code(s): R13.10 - DYSPHAGIA, UNSPECIFIED (7) Muscular dystrophy Code(s): G71.0 - MUSCULAR DYSTROPHY (8) Pulmonary hypertension Code(s): I27.2 - OTHER SECONDARY PULMONARY HYPERTENSION Assessment/Plan Assessment/ Plan: 86 y/o man with h/o muscular dystrophy, pulmonary hypertension , Afib and CHF, admitted for constipation and UTI course c/b fever and hypotension which progressed to unresponsiveness/ respiratory failure and shock now admitted to ICU CV: CHF, pulmonary HTN at baseline, now in shock - septic vs cardiogenic, also with recent large output diarrhea in setting of laxatives for constipation ? component of hypovolemia -central line placement -obtain CVP, central venous sat -trend lactate -transition dopamine to levophed or phenylephrine if tachycardia persists -consider inotropy if CVP, central venous sat warrant -caution further fluid pending more information given known CHF and pulmonary hypertension -will check CVP and start D5 with 3amp's HCO3 (avoiding NS as pt hyperchloremic ) slowly for fluid resuscitation -abx for possible sepsis as outlined below -hold metoprolol and digoxin -EKG -TTE to eval new hypotension and guide therapy Pulm: Intubated for altered mental status and hypoxia now with hypoxemic respiratory failure, given muscular dystrophy may also have a component of restrictive lung disease; also concern for possible aspiration given h/o dysphagia and evolving RLL infiltrate on CXR -continue mechanical ventilation - Low tidal volume (currently on 7cc/kg) -ABG to ensure proper ventilation -optimize peep and wean FiO2 as able -cautious fluid resuscitation given high FiO2 requirements -abx for possible aspiration as outlined below -sedation as needed for vent synchrony ID: UTI, possible aspiration PNA, sacral decub also possible infectious source -continue levaquin -add zosyn for double gram negative coverage and anaerobic coverage given possible aspiration -continue vanco for gram positive coverage -greenberg culture -adjust abx as appropriate GI: admitted with constipation s/p disimpaction with improvement -GI following -holding bowel regimen at present given diarrhea - resume as appropriate -NPO for now -GI ppx Renal: urinary retention with home ugalde now being treated for UTI -maintain ugalde -flomax held in setting of hypotension - resume as indicated -monitor I/O -trend creatinine Neuro: muscular dystrophy with dysphagia -sedation as needed for vent synchrony PPX: -SQ heparin -GI ppx CODE: DNR
[2017-02-20 22:59] LABS: CALCIUM 5.9 mg/dL (8.5-10.1)
[2017-02-20] MEDS ORDERED: CALCIUM GLUCONATE 10% - 1,000 MG/10 ML VIAL IVPB ONE (23:06)
[2017-02-20] MEDS ORDERED: KCL 10 MEQ IVPB 100 ML IVPB SCH (23:15)
--- NOTE | 2017-02-20 23:27 | PN ---
Progress Note (short form) - Note Progress Note: I was called by 6S floor nurse Flavio at 6 pm that pt's O2 sat is 85% - 90% on 4L /min NC O2, HR 110-120 and BP around 100/60; temp 99.0; pt was awake, alert and in no acute distress. GLU and BGM OK, not hypoglycemic. Pt had a lot of diarrhea after Golytely so I ordered to stop further administration of it. Repeat CXR done but not read - to me looks like CHF versus bilateral IT INF. I ordered O2 face mask NRB 100%, ABG, vanco IVPB x 1 dose and to transfer pt to a monitored unit (ICU or telemetry), also I called cardiology in consult. Staff to call me if his condition not improving. I did not hear back from the hospital staff for the next few hours. Around 10:30 PM I checked an update on him from my home computer and I noticed a critical ABG done at 9.30 pm (pH 6.9, CO2 retention) so I called 6S nurse Deya who said pt was transferred to telemetry shortly after 7 pm, and he was in NAD and VSS. I called 4W telemetry d/w nurse Dony who said pt was received on telemetry around 8pm, and that she noticed he was unresponsive, hypoxemic and hypotensive and rapid response was called immediately; pt was intubated and transferred to ICU. I spoke with ICU CC nurse Daysi: pt intubated, on dopamine 5 mcg, BP 90/50; temp 101.8; his at bedside; central line to be placed. I also spoke with pt 's over the phone. Labs K2.9 - I ordered IV KCl ; Glu 250. CXR repeat done after intubation and reading pending Added zosyn and asked for ID consult.
[2017-02-20 23:28] LABS: ARTERIAL BLD GAS O2 SATURATION 89.9 % (90-98.9); ARTERIAL BLOOD GAS BASE EXCESS 0.2 meq/l (-2-2); ARTERIAL BLOOD GAS PO2 62.5 mmHg (68-100)
[2017-02-20 23:30] LABS: ALLENS TEST POSITIVE; ART PUNCT SITE RIGHT RADIAL; LPM/O2% 100; MECH. VENT. Y; PT. ON O2? YES; TYPE OF O2 VENT
[2017-02-20] MEDS: PIPERACILLIN/TAZOB 3.375 GM/50 ML PRE-DOCKED IVPB SCH (23:30)
[2017-02-20 23:31] LABS: VENT RATE 20; VT/PRESS 450
[2017-02-20] MEDS: KCL 10 MEQ IVPB 100 ML IVPB SCH (23:32)
[2017-02-20] MEDS: methylPREDNISolone NA SUCC 40 MG/1 ML VIAL IVPB SCH (23:33)
[2017-02-20] MEDS ORDERED: MIDAZOLAM HCL 2 MG/2 ML SINGLE DOSE VIAL ONE (23:47)
[2017-02-21] MEDS ORDERED: PHENYLEPHRINE HCL 10 MG/1 ML SINGLE DOSE VIAL ONE (00:03)
[2017-02-21] MEDS: PHENYLEPHRINE HCL 20,000 MCG in SODIUM CHLORIDE 248 ML IVPB SCH (00:30)
[2017-02-21] MEDS ORDERED: MIDAZOLAM HCL 2 MG/2 ML SINGLE DOSE VIAL IVPUSH ONE ×2 (00:31→05:32)
--- NOTE | 2017-02-21 00:39 | PROC ---
Central Line Insertion Indication: Vasopressor Risks and Benefits Explained: Yes Consent on Chart: Yes Central Line: Triple Lumen Catheter Anesthesia: 1% Lidocaine Sterile Technique: Yes Ultrasound Guided Assistance: Yes Position: Right Internal Jugular Post Insertion: Yes: Bilateral Breath Sounds, Bilateral Chest Expansion, Chest X-Ray Ordered Sterile Dressing Applied: Yes Remarks: Was assisted in the central Line placement by Dr Gonzalez and Dr Michaud
[2017-02-21] MEDS ORDERED: NOREPINEPHRINE BITARTRATE 4 MG/4 ML ML IV ONE ×6 (01:03→21:04)
[2017-02-21] MEDS: KCL 10 MEQ IVPB 100 ML IVPB SCH ×2 (01:20→02:18)
[2017-02-21] MEDS: NOREPINEPHRINE BITARTRATE 8,000 MCG in DEXTROSE 5%-WATER - 492 ML IV SCH ×2 (02:19→21:27)
[2017-02-21] MEDS ORDERED: MIDAZOLAM HCL 2 MG/2 ML SINGLE DOSE VIAL ONE (02:23)
[2017-02-21] MEDS: BACITRACIN 30 GM TUBE TOPICAL OINTMENT TP SCH ×3 (02:32→21:28)
[2017-02-21] MEDS ORDERED: CALCIUM GLUCONATE 10% - 1,000 MG/10 ML VIAL ONE (02:37)
--- NOTE | 2017-02-21 05:42 | PN ---
Progress Note, Physician Chief Complaint: in ICU intubated on pressors events noted d/w ID regarding antibiotics; d/w pulm dr Bernabe and pt's PCP dr Milton Bennett; d.w at bedside pt comfortable but not responsive - Current Medication List Current Medications: Active Medications Albuterol/Ipratropium (Duoneb -) 1 amp NEB Q6H PRN PRN Reason: SHORTNESS OF BREATH Last Admin: 02/20/17 18:01 Dose: 1 amp Aspirin (Asa -) 81 mg PO DAILY [facility] Last Admin: 02/20/17 09:25 Dose: 81 mg Bacitracin (Bacitracin -) 1 applic TP BID [facility] Last Admin: 02/21/17 02:32 Dose: 1 applic Dextrose (D50w (Syringe) -) 50 ml IVPUSH PRN PRN PRN Reason: HYPOGLYCEMIA Docusate Sodium (Colace Liquid -) 100 mg PO TID [facility] Last Admin: 02/20/17 23:32 Dose: Not Given Heparin Sodium (Porcine) (Heparin -) 5,000 unit SQ BID [facility] Last Admin: 02/20/17 23:32 Dose: 5,000 unit Levofloxacin (Levaquin 500 Mg Premixed Ivpb -) 100 mls @ 100 mls/hr IVPB DAILY [facility] Last Admin: 02/20/17 09:24 Dose: 100 mls/hr Phenylephrine HCl 20,000 mcg/ (Sodium Chloride) 250 mls @ 75 mls/hr IVPB ASDIR [facility]; 100 MCG/MIN PRN Reason: Protocol Last Admin: 02/21/17 00:30 Dose: 75 mls/hr Norepinephrine Bitartrate 8, (000 mcg/ Dextrose) 500 mls @ 18.75 mls/hr IV TITR [facility]; 5 MCG/MIN PRN Reason: Protocol Last Admin: 02/21/17 02:19 Dose: 18.75 mls/hr Methylprednisolone Sodium Succinate (Solu-Medrol -) 40 mg IVPB BID [facility] Last Admin: 02/20/17 23:33 Dose: 40 mg Midazolam HCl (Versed -) 2 mg IVPUSH ONCE ONE Stop: 02/21/17 05:33 Piperacillin Sod/Tazobactam Sod (Zosyn 3.375gm Ivpb (Pre-Docked)) 3.375 gm IVPB Q8H-IV [facility] PRN Reason: Protocol Piperacillin Sod/Tazobactam Sod (Zosyn 3.375gm Ivpb (Pre-Docked)) 3.375 gm IVPB Q8H [facility] PRN Reason: Protocol Stop: 02/21/17 07:16 Last Admin: 02/20/17 23:30 Dose: 3.375 gm Ranitidine HCl (Zantac Oral Solution -) 150 mg GT DAILY [facility] Last Admin: 02/20/17 09:25 Dose: 150 mg - Objective Vital Signs: Vital Signs Temperature 99.1 F 02/21/17 02:00 Pulse Rate 125 H 02/21/17 02:00 Respiratory Rate 22 02/21/17 03:05 Blood Pressure 84/61 02/21/17 02:00 O2 Sat by Pulse Oximetry (%) 93 L 02/20/17 22:53 Constitutional: Yes: No Distress Eyes: Yes: Conjunctiva Clear HENT: Yes: Atraumatic Neck: Yes: Supple Cardiovascular: Yes: Regular Rate and Rhythm Respiratory: Yes: Rales Gastrointestinal: Yes: Soft. No: Distention, Tenderness Musculoskeletal: No: Joint Stiffness, Joint Swelling Extremities: Yes: Cold, Cool Edema: No Integumentary: No: Rash, Venous Stasis Changes Neurological: No: Alert, Oriented Psychiatric: No: Alert, Oriented, Agitated Labs: CBC, BMP 02/20/17 06:10 02/20/17 21:30 - ....Imaging Other: Report Reviewed Assessment/Plan 86-year-old male ashd Afib muscular dystrophy dysphagia s/p recent PEG placement admitted with no bowel movement since 02/11 and nausea and abdominal cramping. CXR c/w PNA and UA c/w UTI worsening bilateral PNA and hypoxemia, respiratory failure, intubated, now in ICU; hypoxemic on 100% O2 and hypotensive on IV pressors s/p fecal disimpaction per GI; stools softeners ordered; rectal tube in; diarrhea; IV ATB, ivF peg feeds held again to prevent further aspiration f/u labs d/w pt and , she said she knows he would not want life support and will try for "a couple days" the mechanical ventilation but if not able to come off the vent she would want to withdraw everything because per his previous expressed wishes he would not want to live like this; he definitely does not want tracheostomy as he expressed this wish before (per and confirmed by PCP) and said they both were very sorry after he had the PEG placed in and would have been better to never have done it. t time 45 min poor prognosis
--- NOTE | 2017-02-21 05:44 | PN ---
Progress Note (short form) - Note Progress Note: d/w CC nurse Daysi pt has a RIJ line and is on pressors, BP better - sBP now around 130 but hypoxic still needs 100% FiO2 ABG and labs and CXR reading pending; received KCl IV; CXR film looks like worsening pneumonia to check CVP if low to increase IVF made him DNR but wants to continue everything as is for now.
[2017-02-21] MEDS ORDERED: DEXTROSE 5%-WATER - 1,000 ML with SODIUM BICARBONATE 8.4% - 150 MEQ IV SCH (05:45)
[2017-02-21] MEDS ORDERED: D5-1/2NS+10 MEQ KCL - 1,000 ML IV SCH ×2 (06:00→08:06)
[2017-02-21 06:20] LABS: BASOPHIL 0.2 % (0-2.0); MCH 30.6 pg (25.7-33.7); MCHC 33.3 g/dl (32.0-35.9); MEAN CELL VOLUME 91.9 fl (80-96); MEAN PLT VOLUME 7.8 fl (7.5-11.1); NEUTROPHILS 95.5 % (42.8-82.8); PLATELET COUNT 431 K/MM3 (134-434); WHITE BLOOD COUNT 19.4 K/mm3 (4.0-10.0)
[2017-02-21 06:57] LABS: ALBUMIN 2.1 g/dl (3.4-5.0); ANION GAP 10 (8-16); BILIRUBIN,TOTAL 0.6 mg/dL (0.2-1.0); CALCIUM 7.5 mg/dL (8.5-10.1); CO2 27 mmol/L (21-32); COCKROFT - GAULT 127.7; CREATININE 0.3 mg/dL (0.7-1.3); GLUCOSE,RANDOM 220 mg/dL (74-106); MAGNESIUM 1.9 mg/dL (1.8-2.4); SGOT/AST 22 U/L (15-37); SGPT/ALT 21 U/L (12-78); TOT PROT 5.5 g/dl (6.4-8.2)
[2017-02-21] MEDS: DOCUSATE NA 100 MG/10 ML UNIT-DOSE CUPS PO SCH ×3 (07:02→21:28)
[2017-02-21] MEDS: PIPERACILLIN/TAZOB 3.375 GM/50 ML PRE-DOCKED IVPB SCH (07:03)
[2017-02-21 07:06] LABS: ALK PHOS 60 U/L (45-117); THYROID STIMULATING HORMONE 3.43 uIU/ml (0.358-3.74)
--- NOTE | 2017-02-21 08:20 | PN ---
Progress Note, Physician Chief Complaint: ID Full noted dictated Discussed and seen with Dr Gordillo this am Vancomycin dose and Zosyn offered Levophed - Current Medication List Current Medications: Active Medications Albuterol/Ipratropium (Duoneb -) 1 amp NEB Q6H PRN PRN Reason: SHORTNESS OF BREATH Last Admin: 02/20/17 18:01 Dose: 1 amp Aspirin (Asa -) 81 mg PO DAILY [facility] Last Admin: 02/20/17 09:25 Dose: 81 mg Bacitracin (Bacitracin -) 1 applic TP BID [facility] Last Admin: 02/21/17 02:32 Dose: 1 applic Dextrose (D50w (Syringe) -) 50 ml IVPUSH PRN PRN PRN Reason: HYPOGLYCEMIA Docusate Sodium (Colace Liquid -) 100 mg PO TID [facility] Last Admin: 02/21/17 07:02 Dose: Not Given Heparin Sodium (Porcine) (Heparin -) 5,000 unit SQ BID [facility] Last Admin: 02/20/17 23:32 Dose: 5,000 unit Phenylephrine HCl 20,000 mcg/ (Sodium Chloride) 250 mls @ 75 mls/hr IVPB ASDIR [facility]; 100 MCG/MIN PRN Reason: Protocol Last Admin: 02/21/17 00:30 Dose: 75 mls/hr Norepinephrine Bitartrate 8, (000 mcg/ Dextrose) 500 mls @ 18.75 mls/hr IV TITR [facility]; 5 MCG/MIN PRN Reason: Protocol Last Titration: 02/21/17 06:00 Dose: 25 mcg/min Sodium Bicarbonate 150 meq/ (Dextrose) 1,150 mls @ 100 mls/hr IV ASDIR [facility] Stop: 02/21/17 17:14 Potassium Chloride/Dextrose/Sod Cl (D5-1/2ns+10 Meq Kcl -) 1,000 mls @ 100 mls/ hr IV ASDIR [facility] Methylprednisolone Sodium Succinate (Solu-Medrol -) 40 mg IVPB BID [facility] Last Admin: 02/20/17 23:33 Dose: 40 mg Piperacillin Sod/Tazobactam Sod (Zosyn 3.375gm Ivpb (Pre-Docked)) 3.375 gm IVPB Q8H-IV [facility] PRN Reason: Protocol Ranitidine HCl (Zantac Oral Solution -) 150 mg GT DAILY [facility] Last Admin: 02/20/17 09:25 Dose: 150 mg - Objective Vital Signs: Vital Signs Temperature 99.1 F 02/21/17 02:00 Pulse Rate 120 H 02/21/17 06:00 Respiratory Rate 24 02/21/17 06:10 Blood Pressure 92/65 02/21/17 06:00 O2 Sat by Pulse Oximetry (%) 93 L 02/20/17 22:53 Neck: Yes: Other (Central line) Respiratory: Yes: WNL, Regular, CTA Bilaterally Gastrointestinal: Yes: WNL, Normal Bowel Sounds, Soft, Other (PEG) Extremities: Yes: Cold, Cyanosis Edema: No Labs: CBC, BMP 02/21/17 05:45 02/21/17 05:45 Problem List - Problems (1) Sepsis Code(s): A41.9 - SEPSIS, UNSPECIFIED ORGANISM (2) Swallowing dysfunction Code(s): R13.10 - DYSPHAGIA, UNSPECIFIED (3) Muscular dystrophy Code(s): G71.0 - MUSCULAR DYSTROPHY Assessment/Plan Microbiology 02/18/17 14:58 Blood - Peripheral Venous Blood Culture - Preliminary NO GROWTH OBTAINED AFTER 48 HOURS, INCUBATION TO CONTINUE FOR 3 DAYS. 02/18/17 14:58 Blood - Peripheral Venous Blood Culture - Preliminary NO GROWTH OBTAINED AFTER 48 HOURS, INCUBATION TO CONTINUE FOR 3 DAYS. Laboratory Tests 02/18/17 02/19/17 02/20/17 13:55 09:45 21:30 WBC Hgb Hct Plt Count ESR 15 ABG pH ABG pCO2 at Pt Temp Oxygen Flow Rate Sodium 151 H Potassium 2.9 L* BUN Creatinine AST ALT Ur Leukocyte Esterase 3+ H Urine RBC 846 Urine WBC 64 02/20/17 02/21/17 02/21/17 22:35 05:45 05:45 WBC 19.4 H D Hgb 12.3 Hct 36.8 Plt Count 431 ESR ABG pH 7.30 L D ABG pCO2 at Pt Temp 56.6 H D Oxygen Flow Rate 100 Sodium 146 H Potassium 3.6 D BUN 21 H Creatinine 0.3 L D AST 22 ALT 21 Ur Leukocyte Esterase Urine RBC Urine WBC Assessment Recent fecal impaction complicated by severe sepsis syndrome and pneumonia ? [facility] Sacral stage 2 wound and possible UTI RA factor positive Muscular dystrophy Plan Vancomycin Zosyn Panculture Prognosis poor ( long standing muscular dystrophy) Florina MAYS
[2017-02-21 09:18] LABS: TROPONIN I 0.02 ng/ml (0.00-0.05)
[2017-02-21] MEDS: HEPARIN NA (PORCINE) 5,000 UNITS/ML 1ML VIAL SQ SCH ×2 (10:30→21:28)
[2017-02-21] MEDS: methylPREDNISolone NA SUCC 40 MG/1 ML VIAL IVPB SCH ×2 (10:30→21:27)
[2017-02-21] MEDS ORDERED: PIPERACILLIN/TAZOB 4.5 GM 4.5 GM in DEXTROSE 5%-WATER - 100 ML IVPB SCH (10:30)
[2017-02-21] MEDS: VANCOMYCIN 1,250 MG in DEXTROSE 5%-WATER - 250 ML IVPB SCH (11:00)
[2017-02-21] MEDS: RANITIDINE HCL 150 MG/10 ML UNIT-DOSE CUP GT SCH (11:00)
[2017-02-21] MEDS: ASPIRIN 81 MG CHEWABLE TABLETS PO SCH (11:00)
--- NOTE | 2017-02-21 11:59 | PN ---
Teaching Attending Note Name of Resident: Apolinar Gonzalez ATTENDING PHYSICIAN STATEMENT I saw and evaluated the patient. I reviewed the resident's note and discussed the case with the resident. I agree with the resident's findings and plan as documented. SUBJECTIVE: Patient seen and examined in the ICU. Decompensated and required intubation. Poorly responsive on AC Mode of vent. NE for hemodynamic support. Intake & Output 02/18/17 02/19/17 02/20/17 02/21/17 23:59 23:59 23:59 23:59 Intake Total 1200 1720 874 Output Total 1500 400 250 Balance -300 1320 624 Weight 130 lb 130 lb 117 lb Last Vital Signs Temp Pulse Resp BP Pulse Ox 97.8 F 115 H 29 H 130/77 93 L 02/21/17 10:00 02/21/17 10:00 02/21/17 11:23 02/21/17 10:00 02/20/17 22:53 Active Medications Albuterol/Ipratropium (Duoneb -) 1 amp NEB Q6H PRN PRN Reason: SHORTNESS OF BREATH Last Admin: 02/20/17 18:01 Dose: 1 amp Aspirin (Asa -) 81 mg PO DAILY [facility] Last Admin: 02/20/17 09:25 Dose: 81 mg Bacitracin (Bacitracin -) 1 applic TP BID [facility] Last Admin: 02/21/17 02:32 Dose: 1 applic Dextrose (D50w (Syringe) -) 50 ml IVPUSH PRN PRN PRN Reason: HYPOGLYCEMIA Docusate Sodium (Colace Liquid -) 100 mg PO TID [facility] Last Admin: 02/21/17 07:02 Dose: Not Given Heparin Sodium (Porcine) (Heparin -) 5,000 unit SQ BID [facility] Last Admin: 02/20/17 23:32 Dose: 5,000 unit Phenylephrine HCl 20,000 mcg/ (Sodium Chloride) 250 mls @ 75 mls/hr IVPB ASDIR FROILAN; 100 MCG/MIN PRN Reason: Protocol Last Admin: 02/21/17 00:30 Dose: 75 mls/hr Norepinephrine Bitartrate 8, (000 mcg/ Dextrose) 500 mls @ 18.75 mls/hr IV TITR FROILAN; 5 MCG/MIN PRN Reason: Protocol Last Titration: 02/21/17 06:00 Dose: 25 mcg/min Sodium Bicarbonate 150 meq/ (Dextrose) 1,150 mls @ 100 mls/hr IV ASDIR FROILAN Stop: 02/21/17 17:14 Vancomycin HCl 1,250 mg/ (Dextrose) 250 mls @ 166.667 mls/hr IVPB DAILY FROILAN PRN Reason: Protocol Potassium Chloride/Dextrose/Sod Cl (D5-1/2ns+10 Meq Kcl -) 1,000 mls @ 100 mls/ hr IV ASDIR FROILAN Piperacillin Sod/Tazobactam Sod (Zosyn 4.5gm Ivpb (Pre-Docked)) 100 mls @ 200 mls/hr IVPB Q6H-IV FROILAN PRN Reason: Protocol Methylprednisolone Sodium Succinate (Solu-Medrol -) 40 mg IVPB BID FROILAN Last Admin: 02/20/17 23:33 Dose: 40 mg Ranitidine HCl (Zantac Oral Solution -) 150 mg GT DAILY [facility] Last Admin: 02/20/17 09:25 Dose: 150 mg GENERAL: Intubated and sedated HEAD: NC, AT EARS, NOSE, THROAT: . dry mucous membranes. NECK: no JVD, no lymphadenopathy LUNGS: Bilateral coarse rhonchi, No wheezes HEART: s1s2 normal ABDOMEN: Soft, nontender, (+) BS, (+) PEG UPPER EXTREMITIES: 2+ pulses irrregular , warm, well-perfused. No cyanosis. LOWER EXTREMITIES: mottled Laboratory Results - last 24 hr 02/19/17 02/20/17 02/20/17 09:45 11:56 14:00 WBC RBC Hgb Hct MCV MCHC RDW Plt Count MPV Neutrophils % Lymphocytes % Monocytes % Eosinophils % Basophils % ESR Puncture Site Right radial ABG pH 7.42 ABG pCO2 at Pt Temp 40.1 ABG pO2 at Pt Temp 63.8 L D ABG HCO3 25.6 ABG O2 Sat (Measured) 92.9 ABG O2 Content 16.0 ABG Base Excess 1.6 Nav Test Positive O2 Delivery Device N/c Oxygen Flow Rate 4 Vent Mode Vent Rate Mechanical Rate PEEP 0.0 Pressure Support Vent Sodium Potassium Chloride Carbon Dioxide Anion Gap BUN Creatinine Creat Clearance w eGFR POC Glucometer 133 Random Glucose Lactic Acid Calcium Magnesium Total Bilirubin AST ALT Alkaline Phosphatase Creatine Kinase Troponin I Total Protein Albumin Aldolase 12.0 H TSH IVA Screen Positive H IVA Homogeneous Pattern TNP IVA Nucleolar Pattern TNP IVA Speckled Pattern 1:320 H IVA Centromere Pattern TNP 02/20/17 02/20/17 02/20/17 14:03 19:00 19:00 WBC RBC Hgb Hct MCV MCHC RDW Plt Count MPV Neutrophils % Lymphocytes % Monocytes % Eosinophils % Basophils % ESR Puncture Site ABG pH ABG pCO2 at Pt Temp ABG pO2 at Pt Temp ABG HCO3 ABG O2 Sat (Measured) ABG O2 Content ABG Base Excess Nav Test O2 Delivery Device Oxygen Flow Rate Vent Mode Vent Rate Mechanical Rate PEEP Pressure Support Vent Sodium 147 H Potassium 3.5 Chloride 107 Carbon Dioxide 31 D Anion Gap 9 BUN 24 H Creatinine 0.4 L D Creat Clearance w eGFR POC Glucometer 166 Random Glucose 251 H D Lactic Acid Calcium 7.8 L Magnesium 2.0 Total Bilirubin AST ALT Alkaline Phosphatase Creatine Kinase 127 Troponin I 0.02 Total Protein Albumin Aldolase TSH IVA Screen IVA Homogeneous Pattern IVA Nucleolar Pattern IVA Speckled Pattern IVA Centromere Pattern 02/20/17 02/20/17 02/20/17 20:01 21:27 21:30 WBC RBC Hgb Hct MCV MCHC RDW Plt Count MPV Neutrophils % Lymphocytes % Monocytes % Eosinophils % Basophils % ESR Puncture Site ABG pH ABG pCO2 at Pt Temp ABG pO2 at Pt Temp ABG HCO3 ABG O2 Sat (Measured) ABG O2 Content ABG Base Excess Nav Test O2 Delivery Device Oxygen Flow Rate Vent Mode Vent Rate Mechanical Rate PEEP Pressure Support Vent Sodium 151 H Potassium 2.9 L* Chloride 116 H Carbon Dioxide 27 Anion Gap 8 BUN 20 H Creatinine 0.2 L D Creat Clearance w eGFR > 60 POC Glucometer 258 209 Random Glucose 196 H D Lactic Acid Calcium 5.9 L* D Magnesium Total Bilirubin 0.2 D AST 19 D ALT 19 Alkaline Phosphatase 58 Creatine Kinase 115 Troponin I 0.02 Total Protein 4.7 L D Albumin 1.8 L D Aldolase TSH IVA Screen IVA Homogeneous Pattern IVA Nucleolar Pattern IVA Speckled Pattern IVA Centromere Pattern 02/20/17 02/20/17 02/20/17 21:30 21:34 22:35 WBC RBC Hgb Hct MCV MCHC RDW Plt Count MPV Neutrophils % Lymphocytes % Monocytes % Eosinophils % Basophils % ESR Puncture Site Right radial Right radial ABG pH 6.99 L* D 7.30 L D ABG pCO2 at Pt Temp 134.0 H* D 56.6 H D ABG pO2 at Pt Temp 111.0 H D 62.5 L D ABG HCO3 31.0 H 27.0 H ABG O2 Sat (Measured) 94.2 89.9 L ABG O2 Content 16.3 15.0 ABG Base Excess -4.8 L 0.2 Nav Test Positive Positive O2 Delivery Device Ambu Vent Oxygen Flow Rate 100% 100 Vent Mode Ac Vent Rate 20 Mechanical Rate Y PEEP 5.0 Pressure Support Vent 450 Sodium Potassium Chloride Carbon Dioxide Anion Gap BUN Creatinine Creat Clearance w eGFR POC Glucometer Random Glucose Lactic Acid 1.497 Calcium Magnesium Total Bilirubin AST ALT Alkaline Phosphatase Creatine Kinase Troponin I Total Protein Albumin Aldolase TSH IVA Screen IVA Homogeneous Pattern IVA Nucleolar Pattern IVA Speckled Pattern IVA Centromere Pattern 02/21/17 02/21/17 02/21/17 05:45 05:45 05:45 WBC 19.4 H D RBC 4.01 Hgb 12.3 Hct 36.8 MCV 91.9 MCHC 33.3 RDW 18.0 H Plt Count 431 MPV 7.8 Neutrophils % 95.5 H Lymphocytes % 1.0 L D Monocytes % 3.3 L Eosinophils % 0.0 D Basophils % 0.2 ESR 30 H Puncture Site ABG pH ABG pCO2 at Pt Temp ABG pO2 at Pt Temp ABG HCO3 ABG O2 Sat (Measured) ABG O2 Content ABG Base Excess Nav Test O2 Delivery Device Oxygen Flow Rate Vent Mode Vent Rate Mechanical Rate PEEP Pressure Support Vent Sodium 146 H Potassium 3.6 D Chloride 109 H Carbon Dioxide 27 Anion Gap 10 BUN 21 H Creatinine 0.3 L D Creat Clearance w eGFR > 60 POC Glucometer Random Glucose 220 H Lactic Acid Calcium 7.5 L D Magnesium 1.9 Total Bilirubin 0.6 D AST 22 ALT 21 Alkaline Phosphatase 60 Creatine Kinase 102 Troponin I 0.02 Total Protein 5.5 L Albumin 2.1 L Aldolase TSH 3.43 D IVA Screen IVA Homogeneous Pattern IVA Nucleolar Pattern IVA Speckled Pattern IVA Centromere Pattern ASSESSMENT/PLAN: Do not suspect active respiratory tract infection AFib Chronic diastolic CHF Pulmonary HTN Mitral regurgitation UTI Musculary dystrophy Dysphagia Fecal impaction Hypokalemia Plan ABG ABX HOB elevation Aspiration precautions BD TX Need family discussions for GOC -> Overall is very poor Dr Dean critical care time spent in reviewing chart, evaluating patient and formulating plan 35 min
--- NOTE | 2017-02-21 13:18 | CONS ---
DATE OF CONSULTATION: DATE OF DICTATION: 02/21/2017 INFECTIOUS DISEASE CONSULTATION HISTORY OF PRESENT ILLNESS: This is a 86-year-old male with a history of muscular dystrophy, who was admitted from home originally as he had been complaining of abdominal pain and was noted to have a fecal impaction. He had been recently admitted to the hospital for placement of a PEG feeding tube due to difficulty swallowing. He had had a Burgos catheter in during his last admission, which was still in at the time of admission now. I am asked to see him at this point in the intensive care unit, as after being disimpacted, he developed respiratory failure and hypoglycemia. He was empirically placed on vancomycin and Zosyn for possible sepsis. Currently he is intubated and requiring Levophed pressor support. PAST MEDICAL HISTORY: Includes muscular dystrophy, atrial fibrillation, mitral insufficiency, pulmonary hypertension, cholelithiasis,status post laparoscopic cholecystectomy, cataract removal. MEDICATIONS AT HOME: Aspirin, digoxin, Lasix, metoprolol, potassium. SOCIAL HISTORY: Lives at home with his . No history of alcohol use. Former smoker, quit many years ago. FAMILY HISTORY: Reviewed and noncontributory. REVIEW OF SYSTEMS: Respiratory: Currently hypoxic, on a ventilator. Cardiac: History of atrial fibrillation. No chest pain, palpitations or syncope. Gastrointestinal: Fecal impaction, now disimpacted. Recent abdominal pain. No vomiting, blood per rectum, melena. Genitourinary: Indwelling Burgos catheter, which he came with. PHYSICAL EXAMINATION: General: He was an elderly male, sedated, on a ventilator. Vital Signs: Temperature maximum 101.8. Pulse 120. Blood pressure 92/65. Respirations 24. HEENT: An endotracheal tube. Neck: Supple, with a CVP line placement. Lungs: Bilateral breath sounds. Anteriorly no rales or rhonchi. Heart: S1, S2, without audible murmur. Tachycardic. Abdomen: Soft. Positive bowel sounds. Nontender. PEG feeding tube. Extremities: Cold, cyanotic. No edema. DIAGNOSTIC STUDIES: White count 19.4, hemoglobin 12.3, platelets 431, with 95% polys, 1 lymph, 3 monos. ABG 7.30, 57, pO2 of 62, on 100% oxygen. BUN 21, creatinine 0.3, creatinine clearance greater than 60, calcium 7.5. Liver enzymes within normal limits. Lactic acid 1.5. Two sets of blood cultures obtained on the , no growth. Urine culture was contaminated. Chest x-ray dated February 21 is reviewed. It shows right-sided pulmonary infiltrate, left retrocardiac atelectasis, no pneumothorax. ASSESSMENT: An 86-year-old male with a history of muscular dystrophy, status post recent admission for placement of a PEG feeding tube, admitted now for fecal impaction. He subsequently developed hypoglycemia with blood sugar of 36, followed by fever of 101.8 and respiratory failure. Now with finding of a new infiltrate in the right lower lobe. Admitting chest x-ray dated February 18 was reviewed. Mentioning resolving right basilar infiltrate. RECOMMENDATIONS: Advise blood cultures x2, sputum culture, urine culture. Empiric therapy with vancomycin 1 g q.24 hours, pending cultures. Overall prognosis poor in light of his respiratory failure in the setting of muscular dystrophy and other comorbid conditions. Critical care time spent - 40 minutes. BERNARD BELTRAN M.D. [id number]
[2017-02-21] MEDS ORDERED: INSULIN (NOVOLOG) ASPART 100 UNITS/ML 10ML VIAL SQ ONE (13:47)
--- NOTE | 2017-02-21 13:47 | PN ---
Physical Exam: SUBJECTIVE: Patient seen and examined at bedside this AM. Family at bedside and discussed goals of care. , niece & nephew would like to spend afternoon with patient. They will come in tomorrow to compassionately extubate patient & start on comfort care. OBJECTIVE: Vital Signs Period Temp Pulse Resp BP Sys/Chilel Pulse Ox Last 24 Hr 97.4 F-101.8 F 97-132 18-29 70-130/47-77 92-96 GENERAL: intubated & sedated HEENT: Atraumatic, EOMI, PERRLA, No lymphadenopathy noted, dry membranes LUNGS: rales noted at right lung base, mildly diminished breath sounds bilaterally HEART: Tachycardia, irregular, S1, S2 ABDOMEN: Soft, nontender, nondistended, normoactive bowel sounds EXTREMITIES: 1+ pulses, warm, well-perfused, no edema, muscular atrophy NEUROLOGICAL: Speech & gait not observed. PSYCH: Normal mood, normal affect. SKIN: Warm, dry, normal turgor, no rashes or lesions noted Laboratory Results 02/20/17 02/20/17 02/20/17 21:27 21:30 21:30 WBC RBC Hgb Hct MCV MCHC RDW Plt Count MPV Neutrophils % Lymphocytes % Monocytes % Eosinophils % Basophils % ESR Puncture Site ABG pH ABG pCO2 at Pt Temp ABG pO2 at Pt Temp ABG HCO3 ABG O2 Sat (Measured) ABG O2 Content ABG Base Excess Nav Test O2 Delivery Device Oxygen Flow Rate Vent Mode Vent Rate Mechanical Rate PEEP Pressure Support Vent Sodium 151 H Potassium 2.9 L* Chloride 116 H Carbon Dioxide 27 Anion Gap 8 BUN 20 H Creatinine 0.2 L D Creat Clearance w eGFR > 60 POC Glucometer 209 Random Glucose 196 H D Lactic Acid 1.497 Calcium 5.9 L* D Magnesium Total Bilirubin 0.2 D AST 19 D ALT 19 Alkaline Phosphatase 58 Creatine Kinase 115 Troponin I 0.02 Total Protein 4.7 L D Albumin 1.8 L D Aldolase TSH IVA Screen IVA Homogeneous Pattern IVA Nucleolar Pattern IVA Speckled Pattern IVA Centromere Pattern 02/20/17 02/20/17 02/21/17 21:34 22:35 05:45 WBC RBC Hgb Hct MCV MCHC RDW Plt Count MPV Neutrophils % Lymphocytes % Monocytes % Eosinophils % Basophils % ESR Puncture Site Right radial Right radial ABG pH 6.99 L* D 7.30 L D ABG pCO2 at Pt Temp 134.0 H* D 56.6 H D ABG pO2 at Pt Temp 111.0 H D 62.5 L D ABG HCO3 31.0 H 27.0 H ABG O2 Sat (Measured) 94.2 89.9 L ABG O2 Content 16.3 15.0 ABG Base Excess -4.8 L 0.2 Anv Test Positive Positive O2 Delivery Device Ambu Vent Oxygen Flow Rate 100% 100 Vent Mode Ac Vent Rate 20 Mechanical Rate Y PEEP 5.0 Pressure Support Vent 450 Sodium 146 H Potassium 3.6 D Chloride 109 H Carbon Dioxide 27 Anion Gap 10 BUN 21 H Creatinine 0.3 L D Creat Clearance w eGFR > 60 POC Glucometer Random Glucose 220 H Lactic Acid Calcium 7.5 L D Magnesium 1.9 Total Bilirubin 0.6 D AST 22 ALT 21 Alkaline Phosphatase 60 Creatine Kinase 102 Troponin I 0.02 Total Protein 5.5 L Albumin 2.1 L Aldolase TSH 3.43 D IVA Screen IVA Homogeneous Pattern IVA Nucleolar Pattern IVA Speckled Pattern IVA Centromere Pattern 02/21/17 02/21/17 05:45 05:45 WBC 19.4 H D RBC 4.01 Hgb 12.3 Hct 36.8 MCV 91.9 MCHC 33.3 RDW 18.0 H Plt Count 431 MPV 7.8 Neutrophils % 95.5 H Lymphocytes % 1.0 L D Monocytes % 3.3 L Eosinophils % 0.0 D Basophils % 0.2 ESR 30 H Puncture Site ABG pH ABG pCO2 at Pt Temp ABG pO2 at Pt Temp ABG HCO3 ABG O2 Sat (Measured) ABG O2 Content ABG Base Excess Nav Test O2 Delivery Device Oxygen Flow Rate Vent Mode Vent Rate Mechanical Rate PEEP Pressure Support Vent Sodium Potassium Chloride Carbon Dioxide Anion Gap BUN Creatinine Creat Clearance w eGFR POC Glucometer Random Glucose Lactic Acid Calcium Magnesium Total Bilirubin AST ALT Alkaline Phosphatase Creatine Kinase Troponin I Total Protein Albumin Aldolase TSH IVA Screen IVA Homogeneous Pattern IVA Nucleolar Pattern IVA Speckled Pattern IVA Centromere Pattern Active Medications Generic Name Dose Route Start Last Admin Trade Name Freq PRN Reason Stop Dose Admin Albuterol/Ipratropium 1 amp 02/20/17 12:06 02/20/17 18:01 Duoneb - NEB 1 amp Q6H PRN Administration SHORTNESS OF BREATH Aspirin 81 mg 02/19/17 10:00 02/20/17 09:25 Asa - PO 81 mg DAILY FROILAN Administration Bacitracin 1 applic 02/18/17 22:00 02/21/17 11:00 Bacitracin - TP 1 applic BID FROILAN Administration Dextrose 50 ml 02/20/17 09:30 D50w (Syringe) - IVPUSH PRN PRN HYPOGLYCEMIA Docusate Sodium 100 mg 02/18/17 22:20 02/21/17 07:02 Colace Liquid - PO Not Given TID FROILAN Heparin Sodium (Porcine) 5,000 unit 02/18/17 22:00 02/21/17 10:30 Heparin - SQ 5,000 unit BID FROILAN Administration Phenylephrine HCl 20,000 mcg/ 250 mls @ 75 mls/hr 02/21/17 00:30 02/21/17 00:30 Sodium Chloride IVPB 75 mls/hr ASDIR FROILAN Administration Protocol 100 MCG/MIN Norepinephrine Bitartrate 8, 500 mls @ 18.75 mls/hr 02/21/17 02:15 02/21/17 06: 00 000 mcg/ Dextrose IV 25 mcg/min TITR FROILAN Titration Protocol 5 MCG/MIN Sodium Bicarbonate 150 meq/ 1,150 mls @ 100 mls/hr 02/21/17 05:45 02/21/17 12: 00 Dextrose IV 02/21/17 17:14 100 mls/hr ASDIR FROILAN Administration Vancomycin HCl 1,250 mg/ 250 mls @ 166.667 mls/hr 02/21/17 10:00 Dextrose IVPB DAILY FROILAN Protocol Potassium Chloride/Dextrose/Sod Cl 1,000 mls @ 100 mls/hr 02/21/17 10:30 D5-1/2ns+10 Meq Kcl - IV ASDIR FROILAN Piperacillin Sod/Tazobactam Sod 100 mls @ 200 mls/hr 02/21/17 10:41 Zosyn 4.5gm Ivpb (Pre-Docked) IVPB Q6H-IV FROILAN Protocol Methylprednisolone Sodium Succinate 40 mg 02/20/17 22:00 02/21/17 10:30 Solu-Medrol - IVPB 40 mg BID FROILAN Administration Ranitidine HCl 150 mg 02/20/17 10:00 02/20/17 09:25 Zantac Oral Solution - GT 150 mg DAILY FROILAN Administration ASSESSMENT/PLAN: 86 year old male with significant PMH of Muscular Dystrophy, Pulm HTN, A-Fib & CHF who was admitted for constipation & UTI. Over course of stay. became hypotensive which progressed to acute respiratory failure & shock. #Acute on Chronic Hypercapneic Respiratory Failure in setting of Chronic Diastolic CHF -intubated on mechanical ventilation -aspiration precautions -keep O2 Sat >88% -Duonebs QIDR -Sodium bicarb drip -Levophed for BP support -Solumedrol 40mg BID -NO LAB DRAWS FOR HIS EVENING AND TOMORROW MORNING IN LIEU OF COMPASSIONATE EXTUBATION IN AM #Acute Sepsis d/t UTI, possible aspiration PNA -Vancomycin, Zosyn -Cultures sent & pending -D5-1/2ns+10 Meq Kcl @100mls/hr #Constipation s/p disimpaction with improvement -Colace -NPO Prophylaxis -Heparin -Zantac PATIENT IS DNR. FAMILY PLANNING MEETING EARLIER TODAY WITH , NIECE & NEPHEW. FAMILY WOULD LIKE TO SPEND THIS AFTERNOON WITH PATIENT & WILL ELECT TO COMPASSIONATELY EXTUBATE TOMORROW. Visit type - Emergency Visit Emergency Visit: Yes ED Registration Date: 02/18/17 Care time: The patient presented to the Emergency Department on the above date and was hospitalized for further evaluation of their emergent condition. - New Patient This patient is new to me today: Yes Date on this admission: 02/21/17 - Critical Care Critical Care patient: Yes Total Critical Care Time (in minutes): 45 Critical Care Statement: The care of this patient involved high complexity decision making to prevent further life threatening deterioration of the patient 's condition and/or to evalute & treat vital organ system(s) failure or risk of failure.
--- NOTE | 2017-02-21 15:54 | CONSULT ---
Consult Consult Specialty:: rheumatology - History of Present Illness History of Present Illness: 86 year/old male with history of muscle dystrophy (20 year history, bed ridden, difficulty to talk, s/p PEG 1 week ago), chronic diastolic CHF, A. fib, puilmonary hypertension and mitral regurgitation, admitted with constipation and abdominal pain. The patient was found to have elevated rheumatoid factor, rule out CTD. Yesterday the patient was found hypotensive and unresponsive. He was intubated and transferred to the ICU. Probable UTI, rule out pneumonia. I was not able to reach his for further medical history. - Past Medical History Cardio/Vascular: Yes: AFIB, CHF, Mitral Insufficiency, Pulmonary Hypertension Gastrointestinal: Yes: Constipation, Other (remote h/o " colitis" followed by Dr Benavides) Hepatobiliary: Yes: Cholelithiasis (s/p lap choly) Renal/: Yes: Other Musculoskeletal: Yes: Other (Muscular Dystrophy) - Past Surgical History Past Surgical History: Yes: Cataract Removal (bilateral), Cholecystectomy ( laparoscopic) - Alcohol/Substance Use Hx Alcohol Use: No History of Substance Use: reports: None - Smoking History Smoking history: Former smoker Have you smoked in the past 12 months: No If you are a former smoker, when did you quit?: - Social History Usual Living Arrangement: With Spouse ADL: Family Assistance 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 History of Recent Travel: No Home Medications - Allergies Allergies/Adverse Reactions: Allergies Allergy/AdvReac Type Severity Reaction Status Date / Time No Known Allergies Allergy Verified 02/11/17 06:07 - Home Medications Home Medications: Ambulatory Orders Aspirin [ASA -] 81 mg PO DAILY 01/29/17 Digoxin [Lanoxin -] 0.125 mg PO DAILY 01/29/17 Bacitracin - [Bacitracin Topical Ointment -] 1 applic TP BID tube 02/06/17 Furosemide [Lasix -] 40 mg PO DAILY tablet 02/06/17 Metoprolol Tartrate [Lopressor -] 12.5 mg PO TID #45 tablet 02/06/17 Pantoprazole Suspension [Protonix Packets For Oral Suspension -] 40 mg PEG DAILY #90 packet 02/06/17 Potassium Chloride [Potassium Chloride Oral Liquid] 20 meq PO DAILY #450 ml 01/20 Polyethylene Glycol 3350 [Miralax (For Bowel Prep) -] 17 gm PO DAILY PRN #255 gm 02/09/17 Potassium Chloride [Potassium Chloride Oral Liquid] 15 ml PO ONCE #600 ml Docusate Liquid [Colace Liquid -] 100 mg PO TID #500 ml 02/11/17 Family Disease History - Family Disease History Other Family History: Non-Contribuatory Physical Exam Vital Signs: Vital Signs Temperature 97.2 F L 02/21/17 14:00 Pulse Rate 117 H 02/21/17 14:00 Respiratory Rate 25 H 02/21/17 14:10 Blood Pressure 115/87 02/21/17 14:00 O2 Sat by Pulse Oximetry (%) 93 L 02/20/17 22:53 Labs: CBC, BMP 02/21/17 05:45 02/21/17 05:45 Problem List - Problems (1) Raised antibody titer Assessment/Plan: Rheumatoid factor positive with no active arthritis and no stigmata of chronic inflammatory arthritis. Probable false positive test. Rule out paraproteinemia. Plan: I requested CCP, protein electrophoresis, CH50 and HCV. Continue same treatment. Code(s): R76.0 - RAISED ANTIBODY TITER
[2017-02-21] MEDS: PIPERACILLIN/TAZOB 4.5 GM 100 ML IVPB SCH ×2 (16:00→21:29)
--- NOTE | 2017-02-21 16:15 | EKG ---
Test Reason : Blood Pressure : / mmHG Vent. Rate : 122 BPM Atrial Rate : 100 BPM P-R Int : 000 ms QRS Dur : 078 ms QT Int : 358 ms P-R-T Axes : 000 -72 -04 degrees QTc Int : 510 ms ATRIAL FIBRILLATION WITH RAPID VENTRICULAR RESPONSE WITH PREMATURE VENTRICULAR OR ABERRANTLY CONDUCTED COMPLEXES LEFT AXIS DEVIATION LOW VOLTAGE QRS INFERIOR INFARCT (CITED ON OR BEFORE 18-FEB-2017) ABNORMAL ECG WHEN COMPARED WITH ECG OF 18-FEB-2017 17:03, NO SIGNIFICANT CHANGE WAS FOUND Confirmed by GERARDO JACOBSEN MD ([id number]) on 02/21/2017 4:15:09 PM Referred By: Confirmed By:GERARDO JACOBSEN MD
[2017-02-21] MEDS ORDERED: PIPERACILLIN/TAZOB 3.375 GM/50 ML PRE-DOCKED IVPB SCH (18:00)
--- NOTE | 2017-02-21 18:16 | CON.CARD ---
Cardiology Consult (text) - Consultation Consultation Note: cc: sob, cough, yellow sputum hpi: 86 m hx afib, muscular dystrophy, recent asp pna, recent g-tube placement for aspiration here with constipation/urinary retention, hospital course complicated by respiratory failure. Had episode of hypotension and hypoxia and was noted to be unresponsive. Was intubated, started on pressors and transferred to ICU Recent constipation. Decreased gtube intake. Chronic dyspnea. Per report no cp, palps, loc, pnd, orthopnea. Unable to obtain history from patient. pmh: per hpi psh: g-tube social: ex tob fam: no premature cad ros: per hpi; limited, pt minimally responsive meds: Ambulatory Orders Aspirin [ASA -] 81 mg PO DAILY 01/29/17 Digoxin [Lanoxin -] 0.125 mg PO DAILY 01/29/17 Bacitracin - [Bacitracin Topical Ointment -] 1 applic TP BID tube 02/06/17 Furosemide [Lasix -] 40 mg PO DAILY tablet 02/06/17 Metoprolol Tartrate [Lopressor -] 12.5 mg PO TID #45 tablet 02/06/17 Pantoprazole Suspension [Protonix Packets For Oral Suspension -] 40 mg PEG DAILY #90 packet 02/06/17 Potassium Chloride [Potassium Chloride Oral Liquid] 20 meq PO DAILY #450 ml 01/20 Polyethylene Glycol 3350 [Miralax (For Bowel Prep) -] 17 gm PO DAILY PRN #255 gm 02/09/17 Potassium Chloride [Potassium Chloride Oral Liquid] 15 ml PO ONCE #600 ml Docusate Liquid [Colace Liquid -] 100 mg PO TID #500 ml 02/11/17 Current Medications Albuterol/Ipratropium (Duoneb -) 1 amp NEB Q6H PRN PRN Reason: SHORTNESS OF BREATH Last Admin: 02/20/17 18:01 Dose: 1 amp Aspirin (Asa -) 81 mg PO DAILY [facility] Last Admin: 02/20/17 09:25 Dose: 81 mg Bacitracin (Bacitracin -) 1 applic TP BID [facility] Last Admin: 02/21/17 11:00 Dose: 1 applic Dextrose (D50w (Syringe) -) 50 ml IVPUSH PRN PRN PRN Reason: HYPOGLYCEMIA Docusate Sodium (Colace Liquid -) 100 mg PO TID [facility] Last Admin: 02/21/17 07:02 Dose: Not Given Heparin Sodium (Porcine) (Heparin -) 5,000 unit SQ BID [facility] Last Admin: 02/21/17 10:30 Dose: 5,000 unit Phenylephrine HCl 20,000 mcg/ (Sodium Chloride) 250 mls @ 75 mls/hr IVPB [facility]IR [facility]; 100 MCG/MIN PRN Reason: Protocol Last Admin: 02/21/17 00:30 Dose: 75 mls/hr Norepinephrine Bitartrate 8, (000 mcg/ Dextrose) 500 mls @ 18.75 mls/hr IV TITR [facility]; 5 MCG/MIN PRN Reason: Protocol Last Titration: 02/21/17 06:00 Dose: 25 mcg/min Vancomycin HCl 1,250 mg/ (Dextrose) 250 mls @ 166.667 mls/hr IVPB DAILY [facility] PRN Reason: Protocol Potassium Chloride/Dextrose/Sod Cl (D5-1/2ns+10 Meq Kcl -) 1,000 mls @ 100 mls/ hr IV ASDIR [facility] Piperacillin Sod/Tazobactam Sod (Zosyn 4.5gm Ivpb (Pre-Docked)) 100 mls @ 200 mls/hr IVPB Q6H-IV [facility] PRN Reason: Protocol Methylprednisolone Sodium Succinate (Solu-Medrol -) 40 mg IVPB BID [facility] Last Admin: 02/21/17 10:30 Dose: 40 mg Ranitidine HCl (Zantac Oral Solution -) 150 mg GT DAILY [facility] Last Admin: 02/20/17 09:25 Dose: 150 mg pe: Vital Signs - 24 hr 02/20/17 02/20/17 02/20/17 18:38 20:09 20:11 Temperature 99 F Pulse Rate 118 H 132 H Respiratory 26 H 18 Rate Blood Pressure 97/60 108/61 O2 Sat by Pulse 96 Oximetry (%) 02/20/17 02/20/17 02/20/17 20:30 21:00 22:53 Temperature 101.8 F H Pulse Rate 121 H Respiratory 26 H 20 20 Rate Blood Pressure 74/47 O2 Sat by Pulse 92 L Oximetry (%) 02/20/17 02/21/17 02/21/17 23:51 00:00 02:00 Temperature 99.1 F Pulse Rate 124 H 125 H Respiratory 20 20 22 Rate Blood Pressure 74/53 84/61 O2 Sat by Pulse Oximetry (%) 02/21/17 02/21/17 02/21/17 03:05 04:00 06:00 Temperature Pulse Rate 106 H 120 H Respiratory 22 25 H 24 Rate Blood Pressure 70/51 92/65 O2 Sat by Pulse Oximetry (%) 02/21/17 02/21/17 02/21/17 06:10 09:00 09:25 Temperature Pulse Rate Respiratory 24 24 Rate Blood Pressure O2 Sat by Pulse 97 Oximetry (%) 02/21/17 02/21/17 02/21/17 10:00 11:23 12:00 Temperature 97.8 F 97.4 F L Pulse Rate 115 H 120 H Respiratory 25 H 29 H 24 Rate Blood Pressure 130/77 122/73 O2 Sat by Pulse Oximetry (%) 02/21/17 02/21/17 02/21/17 14:00 14:10 16:18 Temperature 97.2 F L Pulse Rate 117 H 89 Respiratory 26 H 25 H 25 H Rate Blood Pressure 115/87 O2 Sat by Pulse 99 Oximetry (%) Intake & Output 02/19/17 02/20/17 02/21/17 02/22/17 07:59 07:59 07:59 07:59 Intake Total 1700 2094 0 Output Total 1800 350 200 Balance -100 1744 -200 Weight 130 lb 130 lb 117 lb nad no jvd. intubated minimally responsive off sedation irreg s1s2 no mrg bibasilar ralesl nl eff trace edema, purple discloration of distal LE. abd nt nd pos bs no jaundice diaphoresis diminished dp/pt no carotid bruits CBC, BMP 02/21/17 05:45 02/21/17 05:45 Laboratory Tests 02/18/17 02/20/17 02/20/17 17:47 19:00 21:30 ABG pH ABG pCO2 at Pt Temp ABG pO2 at Pt Temp ABG HCO3 ABG O2 Sat (Measured) Magnesium Total Bilirubin AST ALT Alkaline Phosphatase Troponin I 0.02 0.02 Albumin TSH Digoxin 0.6111 L 02/20/17 02/20/17 02/21/17 21:34 22:35 05:45 ABG pH 6.99 L* D 7.30 L D ABG pCO2 at Pt Temp 134.0 H* D 56.6 H D ABG pO2 at Pt Temp 111.0 H D 62.5 L D ABG HCO3 31.0 H 27.0 H ABG O2 Sat (Measured) 94.2 89.9 L Magnesium 1.9 Total Bilirubin 0.6 D AST 22 ALT 21 Alkaline Phosphatase 60 Troponin I 0.02 Albumin 2.1 L TSH 3.43 D Digoxin tele: afib, mostly rate controlled with occasional rates in 120's-130's ecg: afib, lad, low limb voltages. incomplete rbbb. non-specific tw changes, cxr: rll PNA, lt basilar atelectasis, no sig edema echo 01/2017: nl lv/rv, sev brad, mod mr, mod-sev tr, rvsp 30-40, small-mod pericardial eff, no tamponade a/p: 86 m hx afib, muscular dystrophy, here with constipation/urinary retention , hospital course complicated by respiratory failure. respiratory failure, pna, diastolic chf -multifactorial. + respiratory muscle weakness. Possible contribution from chronic aspiration pna. - CXR without sig edema. Would not diurese at this time. - cont abx per pmd. mechanical ventilation. Ongoing mgm't per pmd, pulm, id -no signs acs, ce's neg x2 afib: - rate controlled off bb and dig (level not elevated) -not on ac at home, cont asa, defer to his outpt MD -cont tele pericardial eff: - repeat echo pending. however no significant jvd or diminished heart sounds on exam. CXR without comparative enlargement of cardiac silhouette. Low suspicion for tamponade. Poor prognosis, per report ongoing discussions with family/pmd regarding potential for changing goals of care to comfort cct 35 min
[2017-02-21] MEDS: METOPROLOL TARTRATE 25 MG TABLET (FP) PO SCH (22:29)
--- NOTE | 2017-02-21 22:58 | PN ---
Progress Note (short form) - Note Progress Note: I spoke earlier this afternoon with pt's and pt's niece in ICU at bedside about pt's condition and prognosis; he has very poor prognosis given his age and comorbidites and muscular dystrophy; he has bilateral PNA, UTI, sacral decubs stage 2 , hypoTA hypoxemia vent dependant and pressors dependant; signed DNR and is considering to proceed with comfort care and compassionate extubation, to decide over the next 1-2 days. I called [facility]iative [facility] svc to assist pt's . I also dw pt's PCP dr Milton Bennett and she agreed with above.
[2017-02-22] MEDS: PHENYLEPHRINE HCL 20,000 MCG in SODIUM CHLORIDE 248 ML IVPB SCH (01:04)
[2017-02-22] MEDS: NOREPINEPHRINE BITARTRATE 8,000 MCG in DEXTROSE 5%-WATER - 492 ML IV SCH (01:50)
[2017-02-22] MEDS: D5-1/2NS+10 MEQ KCL - 1,000 ML IV SCH (02:38)
[2017-02-22] MEDS: PIPERACILLIN/TAZOB 4.5 GM 100 ML IVPB SCH ×5 (03:50→21:53)
[2017-02-22] MEDS ORDERED: PHENYLEPHRINE HCL 10 MG/1 ML SINGLE DOSE VIAL ONE (04:27)
[2017-02-22] MEDS: DOCUSATE NA 100 MG/10 ML UNIT-DOSE CUPS PO SCH ×3 (05:55→21:54)
--- NOTE | 2017-02-22 08:46 | PN ---
Progress Note (short form) - Note Progress Note: awake and alert pressors being tapered remains on the vent- Vital Signs Period Temp Pulse Resp BP Sys/Chilel Pulse Ox Last 24 Hr 97.2 F-98 F 61-120 20-29 110-144/56-98 96-99 cor-rrr lungs decreased bs at bases abd- soft,nt ext no edema CBC, BMP 02/21/17 05:45 02/21/17 05:45 Microbiology 02/18/17 14:58 Blood - Peripheral Venous Blood Culture - Preliminary NO GROWTH OBTAINED AFTER 72 HOURS, INCUBATION TO CONTINUE FOR 2 DAYS. 02/18/17 14:58 Blood - Peripheral Venous Blood Culture - Preliminary NO GROWTH OBTAINED AFTER 72 HOURS, INCUBATION TO CONTINUE FOR 2 DAYS. 02/18/17 13:55 Urine - Urine [place] Urine Culture - Final Contaminated: Please Repeat Active Medications Albuterol/Ipratropium (Duoneb -) 1 amp NEB Q6H PRN PRN Reason: SHORTNESS OF BREATH Last Admin: 02/20/17 18:01 Dose: 1 amp Aspirin (Asa -) 81 mg PO DAILY [facility] Last Admin: 02/21/17 11:00 Dose: Not Given Bacitracin (Bacitracin -) 1 applic TP BID [facility] Last Admin: 02/21/17 21:28 Dose: 1 applic Dextrose (D50w (Syringe) -) 50 ml IVPUSH PRN PRN PRN Reason: HYPOGLYCEMIA Docusate Sodium (Colace Liquid -) 100 mg PO TID [facility] Last Admin: 02/22/17 05:55 Dose: Not Given Heparin Sodium (Porcine) (Heparin -) 5,000 unit SQ BID [facility] Last Admin: 02/21/17 21:28 Dose: 5,000 unit Phenylephrine HCl 20,000 mcg/ (Sodium Chloride) 250 mls @ 75 mls/hr IVPB ASDIR [facility]; 100 MCG/MIN PRN Reason: Protocol Last Admin: 02/22/17 01:04 Dose: Not Given Norepinephrine Bitartrate 8, (000 mcg/ Dextrose) 500 mls @ 18.75 mls/hr IV TITR [facility]; 5 MCG/MIN PRN Reason: Protocol Last Titration: 02/22/17 06:00 Dose: 10 mcg/min Vancomycin HCl 1,250 mg/ (Dextrose) 250 mls @ 166.667 mls/hr IVPB DAILY [facility] PRN Reason: Protocol Last Admin: 02/21/17 11:00 Dose: Not Given Potassium Chloride/Dextrose/Sod Cl (D5-1/2ns+10 Meq Kcl -) 1,000 mls @ 100 mls/ hr IV ASDIR [facility] Last Admin: 02/22/17 02:38 Dose: 100 mls/hr Piperacillin Sod/Tazobactam Sod (Zosyn 4.5gm Ivpb (Pre-Docked)) 100 mls @ 200 mls/hr IVPB Q6H-IV [facility] PRN Reason: Protocol Last Admin: 02/22/17 03:50 Dose: 200 mls/hr Methylprednisolone Sodium Succinate (Solu-Medrol -) 40 mg IVPB BID [facility] Last Admin: 02/21/17 21:27 Dose: 40 mg Ranitidine HCl (Zantac Oral Solution -) 150 mg GT DAILY [facility] Last Admin: 02/21/17 11:00 Dose: Not Given a/p sepsis syndrome/pneumonia/UTI muscular dystrophy continue antibiotics f/u cultures f/u labs
[2017-02-22] MEDS: ASPIRIN 81 MG CHEWABLE TABLETS PO SCH (10:03)
[2017-02-22] MEDS: RANITIDINE HCL 150 MG/10 ML UNIT-DOSE CUP GT SCH (10:04)
[2017-02-22] MEDS: VANCOMYCIN 1,250 MG in DEXTROSE 5%-WATER - 250 ML IVPB SCH (10:04)
[2017-02-22] MEDS: BACITRACIN 30 GM TUBE TOPICAL OINTMENT TP SCH ×2 (10:04→21:51)
[2017-02-22] MEDS: HEPARIN NA (PORCINE) 5,000 UNITS/ML 1ML VIAL SQ SCH ×2 (10:04→21:51)
[2017-02-22] MEDS: methylPREDNISolone NA SUCC 40 MG/1 ML VIAL IVPB SCH ×2 (10:04→21:51)
--- NOTE | 2017-02-22 10:39 | PN ---
Progress Note (short form) - Note Progress Note: GI NOte: Discussed case with Dr Gordillo and our operations developer. Will switch to continuous feedings to minimize aspiration risk until tolerable feedings volume is determined. BS are active.
--- NOTE | 2017-02-22 10:45 | PN ---
Progress Note (short form) - Note Progress Note: PULM/CCM SUBJECTIVE: Patient seen and examined in the ICU. Awake and alert this morning weaning pressors and vent, levo down to 4 afebrile Active Medications Albuterol/Ipratropium (Duoneb -) 1 amp NEB Q6H PRN PRN Reason: SHORTNESS OF BREATH Last Admin: 02/20/17 18:01 Dose: 1 amp Aspirin (Asa -) 81 mg PO DAILY [facility] Last Admin: 02/22/17 10:03 Dose: 81 mg Bacitracin (Bacitracin -) 1 applic TP BID [facility] Last Admin: 02/22/17 10:04 Dose: 1 applic Dextrose (D50w (Syringe) -) 50 ml IVPUSH PRN PRN PRN Reason: HYPOGLYCEMIA Docusate Sodium (Colace Liquid -) 100 mg PO TID [facility] Last Admin: 02/22/17 05:55 Dose: Not Given Heparin Sodium (Porcine) (Heparin -) 5,000 unit SQ BID [facility] Last Admin: 02/22/17 10:04 Dose: 5,000 unit Phenylephrine HCl 20,000 mcg/ (Sodium Chloride) 250 mls @ 75 mls/hr IVPB ASDIR [facility]; 100 MCG/MIN PRN Reason: Protocol Last Admin: 02/22/17 01:04 Dose: Not Given Norepinephrine Bitartrate 8, (000 mcg/ Dextrose) 500 mls @ 18.75 mls/hr IV TITR [facility]; 5 MCG/MIN PRN Reason: Protocol Last Titration: 02/22/17 06:00 Dose: 10 mcg/min Vancomycin HCl 1,250 mg/ (Dextrose) 250 mls @ 166.667 mls/hr IVPB DAILY [facility] PRN Reason: Protocol Last Admin: 02/22/17 10:04 Dose: 166.667 mls/hr Potassium Chloride/Dextrose/Sod Cl (D5-1/2ns+10 Meq Kcl -) 1,000 mls @ 100 mls/ hr IV ASDIR [facility] Last Admin: 02/22/17 02:38 Dose: 100 mls/hr Piperacillin Sod/Tazobactam Sod (Zosyn 4.5gm Ivpb (Pre-Docked)) 100 mls @ 200 mls/hr IVPB Q6H-IV [facility] PRN Reason: Protocol Last Admin: 02/22/17 10:03 Dose: 200 mls/hr Methylprednisolone Sodium Succinate (Solu-Medrol -) 40 mg IVPB BID [facility] Last Admin: 02/22/17 10:04 Dose: 40 mg Ranitidine HCl (Zantac Oral Solution -) 150 mg GT DAILY [facility] Last Admin: 02/22/17 10:04 Dose: 150 mg Vital Signs Temp 98 F 02/22/17 02:00 Pulse 94 H 02/22/17 06:00 Resp 24 02/22/17 06:38 BP 110/56 02/22/17 06:00 Pulse Ox 96 02/21/17 22:00 Intake & Output 02/21/17 02/21/17 02/22/17 11:59 23:59 11:59 Intake Total 874 2316 1900 Output Total 250 800 100 Balance 624 1516 1800 Intake: IV 874 2116 1650 Normal Saline - 1,000 ml 504 @ 42 mls/hr IV ASDIR [facility] Rx#:[id number] Luke-Synephrine - 20,000 250 Mcg In Normal Saline - 248 ml @ 100 MCG/MIN 75 mls/hr IVPB ASDIR [facility] Rx# :[id number] Levophed - 8,000 Mcg In 120 1116 450 D5w - 492 ml @ 5 MCG/MIN 18.75 mls/hr IV TITR [facility] Rx#:[id number] D5-1/2Ns+10 Meq KCl - 1, 1000 1200 000 ml @ 100 mls/hr IV ASDIR [facility] Rx#:[id number] IVPB 200 250 Oral 0 Output: Gastric Drainage 600 Urine 250 200 100 [place] 250 200 100 Other: Voiding Method Indwelling Catheter Indwelling Catheter Bowel Movement No No GENERAL: awake, no distress HEAD: NC, AT EARS, NOSE, THROAT: . dry mucous membranes. NECK: no JVD, no lymphadenopathy LUNGS: scattered rhonchi, no wheezes HEART: s1s2 normal ABDOMEN: Soft, nontender, (+) BS, (+) PEG UPPER EXTREMITIES: 2+ pulses irrregular , warm, well-perfused. No cyanosis. LOWER EXTREMITIES: mottled but slightly improved, dependent edema CBC, BMP 02/21/17 05:45 02/21/17 05:45 TTE: preserved EF, + MR,TR. moderate effusion w/o tamponade physiology. elevated RVSP CXR: scatterd alveolar filling. ASSESSMENT/PLAN: Do not suspect active respiratory tract infection AFib Chronic diastolic CHF Pulmonary HTN Mitral regurgitation UTI Musculary dystrophy Dysphagia Fecal impaction Hypokalemia Plan Vent wean as tolerated, reasonable to optimize in next 24-48 prior to extubation ABX as per ID, likely can d/c if cxl negative HOB elevation Aspiration precautions GI and DVT prophy DNR maintain in ICU Talib Olsen ACNP [id number]
--- NOTE | 2017-02-22 11:06 | PN ---
Progress Note, Physician Chief Complaint: intubated, O2 80%, pressors tapered and BP better; afebrile; awake, alert, seems to understand questions, answers Yes or No (No to pain, No to tube feeds, No to blood drawing, Yes to being uncomfortable, Yes to take the "throat tube" out); niece at bedside; had a long discussion with [facility], pt's PCP and her family, as well as with the patient himself, and decided to terminally wean pt if not better in 1-2 days; they are also waiting for more family to arrive from [place] of state by tomorrow said will continue all meds for now but does not want labs, CXR, feeds and signed DNR and DNI (if pt accidentally extubates himself does not want him back on the vent) aware of consequences. - Current Medication List Current Medications: Active Medications Albuterol/Ipratropium (Duoneb -) 1 amp NEB Q6H PRN PRN Reason: SHORTNESS OF BREATH Last Admin: 02/20/17 18:01 Dose: 1 amp Aspirin (Asa -) 81 mg PO DAILY [facility] Last Admin: 02/22/17 10:03 Dose: 81 mg Bacitracin (Bacitracin -) 1 applic TP BID [facility] Last Admin: 02/22/17 10:04 Dose: 1 applic Dextrose (D50w (Syringe) -) 50 ml IVPUSH PRN PRN PRN Reason: HYPOGLYCEMIA Docusate Sodium (Colace Liquid -) 100 mg PO TID [facility] Last Admin: 02/22/17 05:55 Dose: Not Given Heparin Sodium (Porcine) (Heparin -) 5,000 unit SQ BID [facility] Last Admin: 02/22/17 10:04 Dose: 5,000 unit Phenylephrine HCl 20,000 mcg/ (Sodium Chloride) 250 mls @ 75 mls/hr IVPB ASDIR [facility]; 100 MCG/MIN PRN Reason: Protocol Last Admin: 02/22/17 01:04 Dose: Not Given Norepinephrine Bitartrate 8, (000 mcg/ Dextrose) 500 mls @ 18.75 mls/hr IV TITR [facility]; 5 MCG/MIN PRN Reason: Protocol Last Titration: 02/22/17 06:00 Dose: 10 mcg/min Vancomycin HCl 1,250 mg/ (Dextrose) 250 mls @ 166.667 mls/hr IVPB DAILY [facility] PRN Reason: Protocol Last Admin: 02/22/17 10:04 Dose: 166.667 mls/hr Potassium Chloride/Dextrose/Sod Cl (D5-1/2ns+10 Meq Kcl -) 1,000 mls @ 100 mls/ hr IV ASDIR [facility] Last Admin: 02/22/17 02:38 Dose: 100 mls/hr Piperacillin Sod/Tazobactam Sod (Zosyn 4.5gm Ivpb (Pre-Docked)) 100 mls @ 200 mls/hr IVPB Q6H-IV [facility] PRN Reason: Protocol Last Admin: 02/22/17 10:03 Dose: 200 mls/hr Methylprednisolone Sodium Succinate (Solu-Medrol -) 40 mg IVPB BID [facility] Last Admin: 02/22/17 10:04 Dose: 40 mg Ranitidine HCl (Zantac Oral Solution -) 150 mg GT DAILY [facility] Last Admin: 02/22/17 10:04 Dose: 150 mg - Objective Vital Signs: Vital Signs Temperature 98 F 02/22/17 02:00 Pulse Rate 94 H 02/22/17 06:00 Respiratory Rate 24 02/22/17 06:38 Blood Pressure 110/56 02/22/17 06:00 O2 Sat by Pulse Oximetry (%) 96 02/21/17 22:00 Constitutional: Yes: No Distress, Calm Eyes: Yes: Conjunctiva Clear HENT: Yes: Atraumatic Neck: Yes: Supple Cardiovascular: Yes: Regular Rate and Rhythm Respiratory: Yes: Rales Gastrointestinal: Yes: Soft. No: Distention, Tenderness Extremities: Yes: Cold, Cool Edema: No Integumentary: No: Rash, Venous Stasis Changes Neurological: Yes: Alert Psychiatric: Yes: Alert. No: Agitated Labs: CBC, BMP 02/21/17 05:45 02/21/17 05:45 - ....Imaging Other: Report Reviewed Assessment/Plan 86-year-old male ashd Afib muscular dystrophy dysphagia s/p recent PEG placement admitted with no bowel movement since 02/11 and nausea and abdominal cramping. CXR c/w PNA and UA c/w UTI ICU care worsening bilateral PNA and hypoxemia, respiratory failure, intubated hypoxemic on 80% O2 and hypotensive on IV pressors s/p fecal disimpaction, rectal tube in; diarrhea; IV ATB, ivF peg feeds held d/w pt and and niece - continue current management 1-2 days; if not better to be able to sustain his life off life support, will withdraw everything because as per his prior wishes he would not want to live like this and she does not want him to suffer. t time 45 min poor prognosis
--- NOTE | 2017-02-22 11:09 | PN ---
Progress Note, Physician History of Present Illness: Covering Dr. Johnson Seen and examined Titrating pressors down with less vent support Family at bedside - Current Medication List Current Medications: Active Medications Albuterol/Ipratropium (Duoneb -) 1 amp NEB Q6H PRN PRN Reason: SHORTNESS OF BREATH Last Admin: 02/20/17 18:01 Dose: 1 amp Aspirin (Asa -) 81 mg PO DAILY [facility] Last Admin: 02/22/17 10:03 Dose: 81 mg Bacitracin (Bacitracin -) 1 applic TP BID [facility] Last Admin: 02/22/17 10:04 Dose: 1 applic Dextrose (D50w (Syringe) -) 50 ml IVPUSH PRN PRN PRN Reason: HYPOGLYCEMIA Docusate Sodium (Colace Liquid -) 100 mg PO TID [facility] Last Admin: 02/22/17 05:55 Dose: Not Given Heparin Sodium (Porcine) (Heparin -) 5,000 unit SQ BID [facility] Last Admin: 02/22/17 10:04 Dose: 5,000 unit Phenylephrine HCl 20,000 mcg/ (Sodium Chloride) 250 mls @ 75 mls/hr IVPB ASDIR [facility]; 100 MCG/MIN PRN Reason: Protocol Last Admin: 02/22/17 01:04 Dose: Not Given Norepinephrine Bitartrate 8, (000 mcg/ Dextrose) 500 mls @ 18.75 mls/hr IV TITR [facility]; 5 MCG/MIN PRN Reason: Protocol Last Titration: 02/22/17 06:00 Dose: 10 mcg/min Vancomycin HCl 1,250 mg/ (Dextrose) 250 mls @ 166.667 mls/hr IVPB DAILY [facility] PRN Reason: Protocol Last Admin: 02/22/17 10:04 Dose: 166.667 mls/hr Potassium Chloride/Dextrose/Sod Cl (D5-1/2ns+10 Meq Kcl -) 1,000 mls @ 100 mls/ hr IV ASDIR [facility] Last Admin: 02/22/17 02:38 Dose: 100 mls/hr Piperacillin Sod/Tazobactam Sod (Zosyn 4.5gm Ivpb (Pre-Docked)) 100 mls @ 200 mls/hr IVPB Q6H-IV [facility] PRN Reason: Protocol Last Admin: 02/22/17 10:03 Dose: 200 mls/hr Methylprednisolone Sodium Succinate (Solu-Medrol -) 40 mg IVPB BID [facility] Last Admin: 02/22/17 10:04 Dose: 40 mg Ranitidine HCl (Zantac Oral Solution -) 150 mg GT DAILY [facility] Last Admin: 02/22/17 10:04 Dose: 150 mg - Objective Vital Signs: Vital Signs Temperature 98 F 02/22/17 02:00 Pulse Rate 94 H 02/22/17 06:00 Respiratory Rate 24 02/22/17 06:38 Blood Pressure 110/56 02/22/17 06:00 O2 Sat by Pulse Oximetry (%) 96 02/21/17 22:00 Constitutional: Yes: Calm (Opens eyes and responds to questioning and simple commands) Eyes: Yes: WNL HENT: Yes: WNL Neck: Yes: WNL Cardiovascular: Yes: Regular Rate and Rhythm Respiratory: Yes: CTA Bilaterally Gastrointestinal: Yes: WNL (Soft abdomen) Edema: LLE: Trace, RLE: Trace Labs: CBC, BMP 02/21/17 05:45 02/21/17 05:45 Assessment/Plan a/p: 86 m hx afib, muscular dystrophy, here with constipation/urinary retention , hospital course complicated by respiratory failure. respiratory failure, pna, diastolic chf -multifactorial. + respiratory muscle weakness. Possible contribution from chronic aspiration pna. - CXR without sig edema. Would not diurese at this time. - cont abx per pmd. mechanical ventilation. Ongoing mgm't per pmd, pulm, id -no signs acs, ce's neg x2 afib: - rate controlled off bb and dig (level not elevated) -not on ac at home, cont asa, defer to his outpt MD -cont tele pericardial eff: - repeat echo completed 02/21/2017 with small to moderate sized pericardial effusion. no tamponade physiology. RVSP 50-60mmHg. Continue critical care as per goals of care as per ICU team.
[2017-02-22] MEDS ORDERED: NOREPINEPHRINE BITARTRATE 4 MG/4 ML ML IV ONE (19:12)
[2017-02-22 23:59] VITALS: TEMP 98.4
[2017-02-23] MEDS: PIPERACILLIN/TAZOB 4.5 GM 100 ML IVPB SCH ×2 (03:21→09:45)
[2017-02-23] MEDS: PHENYLEPHRINE HCL 20,000 MCG in SODIUM CHLORIDE 248 ML IVPB SCH (05:15)
[2017-02-23] MEDS: D5-1/2NS+10 MEQ KCL - 1,000 ML IV SCH (05:15)
[2017-02-23] MEDS: NOREPINEPHRINE BITARTRATE 8,000 MCG in DEXTROSE 5%-WATER - 492 ML IV SCH (05:16)
[2017-02-23] MEDS: DOCUSATE NA 100 MG/10 ML UNIT-DOSE CUPS PO SCH (05:55)
[2017-02-23] MEDS ORDERED: SODIUM POLYSTYRENE SULFONATE 15 GM/60 ML BOTTLE ONE (08:38)
[2017-02-23] MEDS: ASPIRIN 81 MG CHEWABLE TABLETS PO SCH (09:43)
[2017-02-23] MEDS: methylPREDNISolone NA SUCC 40 MG/1 ML VIAL IVPB SCH (09:43)
[2017-02-23] MEDS: RANITIDINE HCL 150 MG/10 ML UNIT-DOSE CUP GT SCH (09:43)
[2017-02-23] MEDS: VANCOMYCIN 1,250 MG in DEXTROSE 5%-WATER - 250 ML IVPB SCH (09:44)
[2017-02-23] MEDS: HEPARIN NA (PORCINE) 5,000 UNITS/ML 1ML VIAL SQ SCH (09:44)
[2017-02-23] MEDS: BACITRACIN 30 GM TUBE TOPICAL OINTMENT TP SCH (09:45)
--- NOTE | 2017-02-23 10:03 | PN ---
Progress Note (short form) - Note Progress Note: Progress Note (short form) - Note Progress Note: PULM/CCM SUBJECTIVE: Patient seen and examined in the ICU. Family meeting yesterday - hopeful for extubation in the next day or two, will be DNR/DNI when extubated. If unable to extubate in 48hrs - will do a compassionate wean. Today he is awake and alret. Passing SBT on 05/10 50%. Remains on pressors Current Medications Albuterol/Ipratropium (Duoneb -) 1 amp NEB Q6H PRN PRN Reason: SHORTNESS OF BREATH Last Admin: 02/20/17 18:01 Dose: 1 amp Aspirin (Asa -) 81 mg PO DAILY [facility] Last Admin: 02/23/17 09:43 Dose: 81 mg Bacitracin (Bacitracin -) 1 applic TP BID [facility] Last Admin: 02/23/17 09:45 Dose: 1 applic Dextrose (D50w (Syringe) -) 50 ml IVPUSH PRN PRN PRN Reason: HYPOGLYCEMIA Docusate Sodium (Colace Liquid -) 100 mg PO TID [facility] Last Admin: 02/23/17 05:55 Dose: Not Given Heparin Sodium (Porcine) (Heparin -) 5,000 unit SQ BID [facility] Last Admin: 02/23/17 09:44 Dose: Not Given Phenylephrine HCl 20,000 mcg/ (Sodium Chloride) 250 mls @ 75 mls/hr IVPB ASDIR [facility]AN; 100 MCG/MIN PRN Reason: Protocol Last Admin: 02/23/17 05:15 Dose: Not Given Norepinephrine Bitartrate 8, (000 mcg/ Dextrose) 500 mls @ 18.75 mls/hr IV TITR [facility]OILAN; 5 MCG/MIN PRN Reason: Protocol Last Titration: 02/23/17 07:22 Dose: 10 mcg/min Vancomycin HCl 1,250 mg/ (Dextrose) 250 mls @ 166.667 mls/hr IVPB DAILY [facility] PRN Reason: Protocol Last Admin: 02/23/17 09:44 Dose: 166.667 mls/hr Potassium Chloride/Dextrose/Sod Cl (D5-1/2ns+10 Meq Kcl -) 1,000 mls @ 100 mls/ hr IV ASDIR [facility] Last Admin: 02/23/17 05:15 Dose: Not Given Piperacillin Sod/Tazobactam Sod (Zosyn 4.5gm Ivpb (Pre-Docked)) 100 mls @ 200 mls/hr IVPB Q6H-IV [facility] PRN Reason: Protocol Last Admin: 02/23/17 09:45 Dose: 200 mls/hr Methylprednisolone Sodium Succinate (Solu-Medrol -) 40 mg IVPB BID [facility] Last Admin: 02/23/17 09:43 Dose: 40 mg Ranitidine HCl (Zantac Oral Solution -) 150 mg GT DAILY [facility] Last Admin: 02/23/17 09:43 Dose: 150 mg Vital Signs Temp 98.4 F 02/22/17 23:00 Pulse 87 02/23/17 08:00 Resp 17 02/23/17 08:00 BP 120/89 02/23/17 08:00 Pulse Ox 99 02/22/17 20:13 Intake & Output 02/22/17 02/23/17 02/23/17 18:59 06:59 18:59 Intake Total 3541.6 Output Total 100 150 Balance -100 3391.6 Intake: IV 2841.6 Levophed - 8,000 Mcg In 441.6 D5w - 492 ml @ 5 MCG/MIN 18.75 mls/hr IV TITR [facility] Rx#:[id number] D5-1/2Ns+10 Meq KCl - 1, 2400 000 ml @ 100 mls/hr IV ASDIR [facility] Rx#:[id number] IVPB 700 Output: Urine 100 150 Burgos 100 150 Other: Voiding Method Indwelling Catheter Indwelling Catheter GENERAL: awake, no distress HEAD: NC, AT EARS, NOSE, THROAT: . dry mucous membranes. NECK: no JVD, no lymphadenopathy LUNGS: scattered rhonchi, no wheezes HEART: s1s2 normal ABDOMEN: Soft, nontender, (+) BS, (+) PEG UPPER EXTREMITIES: 2+ pulses irrregular , warm, well-perfused. No cyanosis. LOWER EXTREMITIES: mottled but slightly improved, dependent edema CBC, BMP 02/21/17 05:45 02/21/17 05:45 TTE: preserved EF, + MR,TR. moderate effusion w/o tamponade physiology. elevated RVSP CXR: scatterd alveolar filling. ASSESSMENT/PLAN: Do not suspect active respiratory tract infection AFib Chronic diastolic CHF Pulmonary HTN Mitral regurgitation UTI Musculary dystrophy Dysphagia Fecal impaction Hypokalemia Plan Passing SBT - will extubate this afternoon when family arrives. DNI after extubation - will use Morphine if he fails, is in pain or has dyspnea. ABX as per ID Aspiration precautions GI and DVT prophy DNR, DNI after extubation maintain in ICU [facility] [place] Pulm/Critical Care [employer] [id number] 35min CCT
--- NOTE | 2017-02-23 12:11 | PN ---
Progress Note, Physician Chief Complaint: awake alert; still intubated; tried CPAP but after 1 hour needed to be switched back to CMV; O2 60% but higher doses of pressors; afebrile pt's and another family part at his bedside; they all want to stop everything today; I offered to take another day to see if he would improve and to think again about his management; I also called and spoke with dr Bennett myself as well as pt's spoke with her and decided to withdraw all care today (extubate, stop meds) and if he is uncomfortable will use morphine as needed for comfort. Pt also seems alert enough to understand questions and to answer appropriately. Said NO to having pain, said YES to withdraw the ventilator even if he would not be able to breath and he would , said no to labs and no to feeds; no to continue meds. He also wrote down on a paper that he wants to stop all and he wants to . We used a technician terminal and repeater who confirmed the above. I d/w ICU staff - will proceed with compassionate weaning the vent. - Current Medication List Current Medications: Active Medications Albuterol/Ipratropium (Duoneb -) 1 amp NEB Q6H PRN PRN Reason: SHORTNESS OF BREATH Last Admin: 02/20/17 18:01 Dose: 1 amp Aspirin (Asa -) 81 mg PO DAILY [facility] Last Admin: 02/23/17 09:43 Dose: 81 mg Bacitracin (Bacitracin -) 1 applic TP BID [facility] Last Admin: 02/23/17 09:45 Dose: 1 applic Dextrose (D50w (Syringe) -) 50 ml IVPUSH PRN PRN PRN Reason: HYPOGLYCEMIA Docusate Sodium (Colace Liquid -) 100 mg PO TID [facility] Last Admin: 02/23/17 05:55 Dose: Not Given Heparin Sodium (Porcine) (Heparin -) 5,000 unit SQ BID [facility] Last Admin: 02/23/17 09:44 Dose: Not Given Phenylephrine HCl 20,000 mcg/ (Sodium Chloride) 250 mls @ 75 mls/hr IVPB ASDIR FROILAN; 100 MCG/MIN PRN Reason: Protocol Last Admin: 02/23/17 05:15 Dose: Not Given Norepinephrine Bitartrate 8, (000 mcg/ Dextrose) 500 mls @ 18.75 mls/hr IV TITR [facility]OILAN; 5 MCG/MIN PRN Reason: Protocol Last Titration: 02/23/17 07:22 Dose: 10 mcg/min Vancomycin HCl 1,250 mg/ (Dextrose) 250 mls @ 166.667 mls/hr IVPB DAILY [facility] PRN Reason: Protocol Last Admin: 02/23/17 09:44 Dose: 166.667 mls/hr Potassium Chloride/Dextrose/Sod Cl (D5-1/2ns+10 Meq Kcl -) 1,000 mls @ 100 mls/ hr IV ASDIR [facility] Last Admin: 02/23/17 05:15 Dose: Not Given Piperacillin Sod/Tazobactam Sod (Zosyn 4.5gm Ivpb (Pre-Docked)) 100 mls @ 200 mls/hr IVPB Q6H-IV [facility] PRN Reason: Protocol Last Admin: 02/23/17 09:45 Dose: 200 mls/hr Methylprednisolone Sodium Succinate (Solu-Medrol -) 40 mg IVPB BID [facility] Last Admin: 02/23/17 09:43 Dose: 40 mg Ranitidine HCl (Zantac Oral Solution -) 150 mg GT DAILY [facility] Last Admin: 02/23/17 09:43 Dose: 150 mg - Objective Vital Signs: Vital Signs Temperature 98.4 F 02/22/17 23:00 Pulse Rate 90 02/23/17 10:40 Respiratory Rate 30 H 02/23/17 11:53 Blood Pressure 120/89 02/23/17 08:00 O2 Sat by Pulse Oximetry (%) 99 02/23/17 10:40 Constitutional: Yes: No Distress, Calm Eyes: Yes: Conjunctiva Clear HENT: Yes: Atraumatic Neck: Yes: Supple Cardiovascular: Yes: Regular Rate and Rhythm Respiratory: Yes: Rales Gastrointestinal: Yes: Soft, Other (rectal tube in, diarrhea). No: Distention, Tenderness ...Rectal Exam: Yes: Other (rectal tube in) Genitourinary: Yes: Burgos Present Musculoskeletal: No: Joint Stiffness, Joint Swelling Extremities: Yes: Cold, Cool Edema: No Integumentary: No: Rash, Venous Stasis Changes Neurological: Yes: Alert Psychiatric: Yes: Alert. No: Agitated Labs: CBC, BMP 02/21/17 05:45 02/21/17 05:45 - ....Imaging Other: Report Reviewed Assessment/Plan 86-year-old male ashd Afib muscular dystrophy dysphagia s/p recent PEG placement admitted with no bowel movement since 02/11 and nausea and abdominal cramping. CXR c/w PNA and UA c/w UTI ICU worsening bilateral PNA and hypoxemia, respiratory failure, intubated hypoxemic on 60% O2 and hypotensive on IV pressors s/p fecal disimpaction, rectal tube in; diarrhea; IV ATB, ivF peg feeds held; Burgos in compassionate extubation per pt's and pt's 's wishes; morphine prn for comfort; most likely pt will without the vent support and without IV pressors; DNR DNI d/w dr Bennett, d/w ICU team. d/w pt, his and his family at bedside t time 45 min prognosis grim
--- NOTE | 2017-02-23 12:28 | PN ---
Progress Note, Physician - Current Medication List Current Medications: Active Medications Albuterol/Ipratropium (Duoneb -) 1 amp NEB Q6H PRN PRN Reason: SHORTNESS OF BREATH Last Admin: 02/20/17 18:01 Dose: 1 amp Aspirin (Asa -) 81 mg PO DAILY [facility] Last Admin: 02/23/17 09:43 Dose: 81 mg Bacitracin (Bacitracin -) 1 applic TP BID [facility] Last Admin: 02/23/17 09:45 Dose: 1 applic Dextrose (D50w (Syringe) -) 50 ml IVPUSH PRN PRN PRN Reason: HYPOGLYCEMIA Docusate Sodium (Colace Liquid -) 100 mg PO TID [facility] Last Admin: 02/23/17 05:55 Dose: Not Given Heparin Sodium (Porcine) (Heparin -) 5,000 unit SQ BID [facility] Last Admin: 02/23/17 09:44 Dose: Not Given Phenylephrine HCl 20,000 mcg/ (Sodium Chloride) 250 mls @ 75 mls/hr IVPB ASDIR [facility]OILAN; 100 MCG/MIN PRN Reason: Protocol Last Admin: 02/23/17 05:15 Dose: Not Given Norepinephrine Bitartrate 8, (000 mcg/ Dextrose) 500 mls @ 18.75 mls/hr IV TITR [facility]OILAN; 5 MCG/MIN PRN Reason: Protocol Last Titration: 02/23/17 07:22 Dose: 10 mcg/min Vancomycin HCl 1,250 mg/ (Dextrose) 250 mls @ 166.667 mls/hr IVPB DAILY [facility] PRN Reason: Protocol Last Admin: 02/23/17 09:44 Dose: 166.667 mls/hr Potassium Chloride/Dextrose/Sod Cl (D5-1/2ns+10 Meq Kcl -) 1,000 mls @ 100 mls/ hr IV ASDIR [facility] Last Admin: 02/23/17 05:15 Dose: Not Given Piperacillin Sod/Tazobactam Sod (Zosyn 4.5gm Ivpb (Pre-Docked)) 100 mls @ 200 mls/hr IVPB Q6H-IV [facility] PRN Reason: Protocol Last Admin: 02/23/17 09:45 Dose: 200 mls/hr Methylprednisolone Sodium Succinate (Solu-Medrol -) 40 mg IVPB BID [facility] Last Admin: 02/23/17 09:43 Dose: 40 mg Ranitidine HCl (Zantac Oral Solution -) 150 mg GT DAILY [facility] Last Admin: 02/23/17 09:43 Dose: 150 mg - Objective Vital Signs: Vital Signs Temperature 98.4 F 02/22/17 23:00 Pulse Rate 90 02/23/17 10:40 Respiratory Rate 30 H 02/23/17 11:53 Blood Pressure 120/89 02/23/17 08:00 O2 Sat by Pulse Oximetry (%) 99 02/23/17 10:40 Labs: CBC, BMP 02/21/17 05:45 02/21/17 05:45
[2017-02-23] MEDS ORDERED: morphine CARPU-JECT 2 MG/1 ML DISP.SYRIN IVPUSH PRN (12:34)
--- NOTE | 2017-02-23 12:43 | PN ---
Progress Note, Physician History of Present Illness: Attempted to see patient today Patients family stated to me "we are in a palliative situation and we dont need you" I asked if they would like for me to examine him and they responded "no thank you" - Current Medication List Current Medications: Active Medications Albuterol/Ipratropium (Duoneb -) 1 amp NEB Q6H PRN PRN Reason: SHORTNESS OF BREATH Last Admin: 02/20/17 18:01 Dose: 1 amp Aspirin (Asa -) 81 mg PO DAILY [facility] Last Admin: 02/23/17 09:43 Dose: 81 mg Bacitracin (Bacitracin -) 1 applic TP BID [facility] Last Admin: 02/23/17 09:45 Dose: 1 applic Dextrose (D50w (Syringe) -) 50 ml IVPUSH PRN PRN PRN Reason: HYPOGLYCEMIA Docusate Sodium (Colace Liquid -) 100 mg PO TID [facility] Last Admin: 02/23/17 05:55 Dose: Not Given Heparin Sodium (Porcine) (Heparin -) 5,000 unit SQ BID [facility] Last Admin: 02/23/17 09:44 Dose: Not Given Norepinephrine Bitartrate 8, (000 mcg/ Dextrose) 500 mls @ 18.75 mls/hr IV TITR [facility]; 5 MCG/MIN PRN Reason: Protocol Last Titration: 02/23/17 07:22 Dose: 10 mcg/min Vancomycin HCl 1,250 mg/ (Dextrose) 250 mls @ 166.667 mls/hr IVPB DAILY [facility] PRN Reason: Protocol Last Admin: 02/23/17 09:44 Dose: 166.667 mls/hr Potassium Chloride/Dextrose/Sod Cl (D5-1/2ns+10 Meq Kcl -) 1,000 mls @ 100 mls/ hr IV ASDIR [facility] Last Admin: 02/23/17 05:15 Dose: Not Given Piperacillin Sod/Tazobactam Sod (Zosyn 4.5gm Ivpb (Pre-Docked)) 100 mls @ 200 mls/hr IVPB Q6H-IV [facility] PRN Reason: Protocol Last Admin: 02/23/17 09:45 Dose: 200 mls/hr Morphine Sulfate 100 mg/ (Sodium Chloride) 100 mls @ 1 mls/hr IVPB TITR [facility]; 1 MG/HR PRN Reason: Protocol Methylprednisolone Sodium Succinate (Solu-Medrol -) 40 mg IVPB BID [facility] Last Admin: 02/23/17 09:43 Dose: 40 mg Ranitidine HCl (Zantac Oral Solution -) 150 mg GT DAILY [facility] Last Admin: 02/23/17 09:43 Dose: 150 mg - Objective Vital Signs: Vital Signs Temperature 98.4 F 02/22/17 23:00 Pulse Rate 90 02/23/17 10:40 Respiratory Rate 30 H 02/23/17 11:53 Blood Pressure 120/89 02/23/17 08:00 O2 Sat by Pulse Oximetry (%) 99 02/23/17 10:40 Labs: CBC, BMP 02/21/17 05:45 02/21/17 05:45 Assessment/Plan Attempted to see patient today Patients family stated to me "we are in a palliative situation and we dont need you" I asked if they would like for me to examine him and they responded "no thank you" Will sign-off Please call with any questions
[2017-02-23] MEDS ORDERED: MORPHINE 100 MG in SODIUM CHLORIDE 98 ML IVPB SCH (12:45)
[2017-02-24 00:06] LABS: CYCLIC CITRULLINE PEPTIDE AB 8 units (0-19)
--- NOTE | 2017-02-24 06:57 | HOSP ---
Physical Examination Vital Signs: Vital Signs Temperature 98.4 F 02/22/17 23:00 Pulse Rate 16 L 02/24/17 06:00 Respiratory Rate 0 L 02/24/17 06:00 Blood Pressure 120/89 02/23/17 08:00 O2 Sat by Pulse Oximetry (%) 89 L 02/23/17 14:30 Labs: CBC, BMP 02/21/17 05:45 02/21/17 05:45 Hospitalist Encounter Assessment: Was called to assess Mr Prakash Yi for unresponsiveness. Pt was unresponsive to verbal and tactile stimuli. Pt has no peripheral pulse, no heart sound and no breath breath sounds. Pupils are fixed and dilated. Pt was pronounced on 02/24/2017 at 0640 am. Family and (Cecilia Yi) are at bedside. Attending Physician Dr Gordillo was notified. Family does not want autopsy. Visit type - Emergency Visit Emergency Visit: Yes ED Registration Date: 02/18/17 Care time: The patient presented to the Emergency Department on the above date and was hospitalized for further evaluation of their emergent condition. - New Patient This patient is new to me today: Yes Date on this admission: 02/24/17 - Critical Care Critical Care patient: Yes Total Critical Care Time (in minutes): 15
[2017-02-24 07:23] VITALS: BP 0/0; PULSE 0
[2017-02-25 00:07] LABS: A/G RATIO 0.8 (0.7-1.7); ALBUMIN 2.2 g/dL (2.9-4.4); ALPHA-1-GLOBULIN 0.4 g/dL (0.0-0.4); BETA GLOBULIN 0.6 g/dL (0.7-1.3); GAMMA GLOBULIN 1.5 g/dL (0.4-1.8); GLOBULIN, TOTAL 3.1 g/dL (2.2-3.9); M-SPIKE Not Observed g/dL (Not Observed); TOTAL PROTEIN 5.3 g/dL (6.0-8.5)
--- NOTE | 2017-02-26 12:58 | DS ---
Physical Examination Vital Signs: Vital Signs Temperature 98.4 F 02/22/17 23:00 Pulse Rate 0 L 02/24/17 06:40 Respiratory Rate 0 L 02/24/17 06:40 Blood Pressure 0/0 02/24/17 06:40 O2 Sat by Pulse Oximetry (%) 89 L 02/23/17 14:30 Findings/Remarks: pt on 02/24 am pt DNR DNI started on morphine drip and compassionate extubation per pt's and , family wishes; Labs: CBC, BMP 02/21/17 05:45 02/21/17 05:45 Discharge Summary Reason For Visit: PNEUMONIA aspiration PNA bilateral Procedures: Principal: pt admitted with aspiration PNA, UTI, decubs, sepsis, fecal impaction. IV ATB, mechanical ventilation Other Procedures: desimpacted per GI; stools softeners Hospital Course: pt and and family wanted to stop all life support; pt - Instructions Referrals: Aster Bennett MD [Primary Care Provider] - Disposition: - Home Medications Comprehensive Discharge Medication List: Ambulatory Orders Aspirin [ASA -] 81 mg PO DAILY 01/29/17 Digoxin [Lanoxin -] 0.125 mg PO DAILY 01/29/17 Bacitracin - [Bacitracin Topical Ointment -] 1 applic TP BID tube 02/06/17 Furosemide [Lasix -] 40 mg PO DAILY tablet 02/06/17 Metoprolol Tartrate [Lopressor -] 12.5 mg PO TID #45 tablet 02/06/17 Pantoprazole Suspension [Protonix Packets For Oral Suspension -] 40 mg PEG DAILY #90 packet 02/06/17 Potassium Chloride [Potassium Chloride Oral Liquid] 20 meq PO DAILY #450 ml 01/20 Polyethylene Glycol 3350 [Miralax (For Bowel Prep) -] 17 gm PO DAILY PRN #255 gm 02/09/17 Potassium Chloride [Potassium Chloride Oral Liquid] 15 ml PO ONCE #600 ml Docusate Liquid [Colace Liquid -] 100 mg PO TID #500 ml 02/11/17
== END 2017-02-24 06:40 | disposition expired | DRG 208 ==
LOC: JER 12:18 → JERBED 18:05 → J6S 02-19 14:19 → J4W 02-20 21:18 → JICU 02-20 22:13
PROVIDERS: ADMIT Internal Medicine; ATTEND Internal Medicine
PROC: 5A1945Z Respiratory Ventilation, 24-96 Consecutive Hours (ICD-10-PCS; 2017-02-20)
PROC: 0BH17EZ Insertion of Endotracheal Airway into Trachea, Via Natural or Artificial Opening (ICD-10-PCS; 2017-02-20)
PROC: 05HM33Z Insertion of Infusion Device into Right Internal Jugular Vein, Percutaneous Approach (ICD-10-PCS; principal; 2017-02-21)
DX: J18.9 Pneumonia, unspecified organism (principal); J96.01 Acute respiratory failure with hypoxia; J96.02 Acute respiratory failure with hypercapnia; A41.89 Other specified sepsis; R65.21 Severe sepsis with septic shock; G71.0 Muscular dystrophy; N39.0 Urinary tract infection, site not specified; I50.32 Chronic diastolic (congestive) heart failure; J98.11 Atelectasis; I31.3 Pericardial effusion (noninflammatory); R62.7 Adult failure to thrive; K59.09 Other constipation; I34.0 Nonrheumatic mitral (valve) insufficiency; I27.2 Other secondary pulmonary hypertension; I48.91 Unspecified atrial fibrillation; L89.152 Pressure ulcer of sacral region, stage 2; E16.1 Other hypoglycemia; E87.6 Hypokalemia; R13.19 Other dysphagia; R76.0 Raised antibody titer; R33.9 Retention of urine, unspecified; Z87.891 Personal history of nicotine dependence; Z66 Do not resuscitate; Z74.01 Bed confinement status; Z93.1 Gastrostomy status
CPT/HCPCS: 31500; 36415; 36600; 71010-TC; 74000-TC; 80048; 80053; 80162; 81003; 81015; 82085; 82375; 82550; 82607; 82784; 82803; 82947; 83050; 83605; 83690; 83735; 84155; 84165; 84443; 84484; 85025; 85027; 85651; 86038; 86162; 86200; 86334; 86431; 86803; 87040; 87086; 93005; 93010; 93306-TC; 94002; 94640; 99285-25; J1644